=== PATIENT | male | born 1965 | race African-American/Black ===

== ENCOUNTER 2018-05-17 08:24 | Inpatient (IN) | payer OTHER ==
[2018-05-17 09:10] VITALS: BMI 26.4
--- NOTE | 2018-05-17 09:17 | HP ---
CIWA Score Nausea/Vomitin Muscle Tremors: 2 Anxiety: 2 Agitation: 2 Paroxysmal Sweats: 1-Minimal Palms Moist Orientation: 0-Oriented Tacttile Disturbances: 1-Very Mild Itch/Numbness Auditory Disturbances: 1-Very Mild Visual Disturbances: 0-None Headache: 2-Mild CIWA-Ar Total Score: 13 - Admission Criteria OASAS Guidelines: Admission for Medically Managed Detox: Requires at least one of the followin. CIWA greater than 12 2. Seizures within the past 24 hours 3. Delirium tremens within the past 24 hours 4. Hallucinations within the past 24 hours 5. Acute intervention needed for co occurring medical disorder 6. Acute intervention needed for co occurring psychiatric disorder 7. Severe withdrawal that cannot be handled at a lower level of care (continued vomiting, continued diarrhea, abnormal vital signs) requiring intravenous medication and/or fluids 8. Patient presents the following: CIWA greater than 12 Admission Criteria Met: Admission criteria met Admission ROS [facility] - HPI Chief Complaint: i need help to stop drinking alcohol Allergies/Adverse Reactions: Allergies Allergy/AdvReac Type Severity Reaction Status Date / Time No Known Allergies Allergy Verified 05/17/18 09:37 History of Present Illness: this 52 years old male with alcohol dependence,seeking detox,withdrawal symptom, never been in detox before, history of hypertension no medication hepatitis c follow up with [email or web address] nicotine dependence weight loss Exam Limitations: No Limitations - Ebola screening Have you traveled outside of the country in the last 21 days: No Have you had contact with anyone from an Ebola affected area: No Have you been sick,other than usual withdrawal symptoms: No Do you have a fever: No - Review of Systems Constitutional: Malaise, Night Sweats, Changes in sleep, Weakness, Unintentional Wgt. Loss EENT: reports: Nose Congestion Respiratory: reports: No Symptoms reported Cardiac: reports: Palpitations GI: reports: Nausea, Poor Appetite, Abdominal cramping : reports: No Symptoms Reported Musculoskeletal: reports: Back Pain, Joint Pain, Muscle Pain Integumentary: reports: Dryness Neuro: reports: Headache, Tremors Endocrine: reports: No Symptoms Reported Hematology: reports: No Symptoms Reported Psychiatric: reports: No Sypmtoms Reported, Judgement Intact, Mood/Affect Appropiate, Orientated x3 Patient History - Patient Medical History Hx Anemia: No Hx Asthma: No Hx Chronic Obstructive Pulmonary Disease (COPD): No Hx Cancer: No Hx Cardiac Disorders: No Hx Congestive Heart Failure: No Hx Hypertension: Yes (no medication) Hx Hypercholesterolemia: No Hx Pacemaker: No HX Cerebrovascular Accident: No Hx Seizures: No Hx Dementia: No Hx Diabetes: No Hx Gastrointestinal Disorders: Yes (pancreatitis ) Hx Liver Disease: Yes (hepatitis c) Hx Genitourinary Disorders: No Hx Sexually Transmitted Disorders: No Hx Renal Disease (ESRD): No Hx Thyroid Disease: No Hx Human Immunodeficiency Virus (HIV): No (last 03/20 negative) Hx Hepatitis C: Yes (follow up with pmd no treatment) Hx Depression: No Hx Suicide Attempt: No Hx Bipolar Disorder: No Hx Schizophrenia: No Other Medical History: no suicidal,no homicidal - Patient Surgical History Past Surgical History: No - PPD History Previous Implant?: Yes Documented Results: Negative w/o proof Implanted On Prior [facility] Admission?: No PPD to be Administered?: Yes - Smoking Cessation Smoking history: Current every day smoker Have you smoked in the past 12 months: Yes Aproximately how many cigarettes per day: 10 Cigars Per Day: 0 Hx Chewing Tobacco Use: Yes Initiated information on smoking cessation: Yes 'Breaking Loose' booklet given: 05/17/18 - Substance & Tx. History Hx Alcohol Use: Yes Hx Substance Use: No Substance Use Type: Alcohol Hx Substance Use Treatment: No - Substances Abused Alcohol Route: Oral Frequency: Daily Amount used: 1/5th vodka/2 0f 24 ozs of beer Age of first use: 13 Date of Last Use: 05/17/18 Heroin Route: Injection Frequency: 1-2 times per week Amount used: 5 bags Age of first use: 21 Date of Last Use: 05/09/18 Family Disease History - Family Disease History Family History: Denies Admission Physical Exam [facility] - Vital Signs Vital Signs: Vital Signs - 24 hr 05/17/18 09:02 Temperature 97.2 F L Pulse Rate 94 H Respiratory 20 Rate Blood Pressure 135/84 - Physical General Appearance: Yes: Moderate Distress, Tremorous, Irritable, Sweating, Anxious HEENTM: Yes: Normal ENT Inspection, JOLYNN, Pharynx Normal Respiratory: Yes: Lungs Clear, Normal Breath Sounds, No Respiratory Distress Neck: Yes: Within Normal Limits, Supple, Trachea in good position Breast: Yes: Within Normal Limits Cardiology: Yes: Within Normal Limits, Regular Rhythm, Regular Rate, S1, S2 Abdominal: Yes: Within Normal Limits, Normal Bowel Sounds, Non Tender, Flat, Soft Genitourinary: Yes: Within Normal Limits Back: Yes: Muscle Spasm Musculoskeletal: Yes: Back pain, Muscle Pain Extremities: Yes: Tremors Neurological: Yes: process stripper II-XII NML intact, Fully Oriented, Alert, Motor Strength 5/5 Integumentary: Yes: Dry Lymphatic: Yes: Within Normal Limits - Diagnostic (1) Alcohol dependence with uncomplicated withdrawal Current Visit: Yes Status: Acute (2) Hypertension Current Visit: Yes Status: Acute (3) Nicotine dependence Current Visit: Yes Status: Acute Cleared for Admission [facility] - Detox or Rehab [facility] Level of Care: Medically Managed Detox Regimen/Protocol: Librium [facility] Breath Alcohol Content Breath Alcohol Content: 0.042 Urine Drug Screen - Results Drug Screen Negative: No Urine Drug Screen Results: BUP-Suboxone
[2018-05-17] MEDS ORDERED: MAGNESIUM CITRATE 300 ML BOTTLE PO PRN (09:29)
[2018-05-17] MEDS ORDERED: ACETAMINOPHEN 325 MG TABLET (FP) PO PRN (09:29)
[2018-05-17] MEDS ORDERED: P-EPHED 60MG/TRIPROLIDI 2.5MG TABLET PO PRN (09:29)
[2018-05-17] MEDS ORDERED: MAGNESIUM HYDROX 2400MG/30ML ORAL SUSPENSION 30 ML CUP PO PRN (09:29)
[2018-05-17] MEDS ORDERED: LOPERAMIDE HCL 2 MG CAPSULE PO PRN (09:29)
[2018-05-17] MEDS ORDERED: MENTHOL/PHENOL 1 EACH UD MM PRN (09:29)
[2018-05-17] MEDS ORDERED: chlordiazePOXIDE HCL 25 MG CAPSULE PO PRN (09:29)
[2018-05-17] MEDS ORDERED: MAG HYDROX/AL HYDROX/SIMETH 30 ML UNIT-DOSE CUP PO PRN (09:29)
[2018-05-17] MEDS ORDERED: guaiFENesin/D-METHORPHAN HB 10 ML UNIT-DOSE CUPS PO PRN (09:29)
[2018-05-17] MEDS: PRENATAL VITAMINS W/ FOLIC ACID TABLET (FP) PO SCH (11:33)
[2018-05-17] MEDS: chlordiazePOXIDE HCL 25 MG CAPSULE PO SCH ×3 (11:34→22:24)
[2018-05-17] MEDS: hydrOXYzine PAMOATE 50 MG CAPSULE (FP) PO PRN ×2 (11:38→18:06)
[2018-05-17] MEDS: NICOTINE 21 MG/24 HOURS TOPICAL PATCH TD SCH (12:26)
--- NOTE | 2018-05-17 14:14 | EKG ---
Test Reason : Blood Pressure : / mmHG Vent. Rate : 078 BPM Atrial Rate : 078 BPM P-R Int : 180 ms QRS Dur : 096 ms QT Int : 414 ms P-R-T Axes : 056 -09 038 degrees QTc Int : 471 ms NORMAL SINUS RHYTHM INCOMPLETE RIGHT BUNDLE BRANCH BLOCK BORDERLINE ECG NO PREVIOUS ECGS AVAILABLE Confirmed by GEORGE VALLES MD ([id number]) on 05/17/2018 2:14:08 PM Referred By: Confirmed By:GEORGE VALLES MD
[2018-05-17] MEDS: IBUPROFEN 400 MG TABLET (FP) PO PRN (20:44)
[2018-05-17 21:34] LABS: URINE APPEARANCE CLEAR; URINE BILIRUBIN NEGATIVE (<2.0 mg/dL); URINE COLOR DKYELLOW; URINE GLUCOSE (UA) NEGATIVE (NEGATIVE); URINE KETONE NEGATIVE (NEGATIVE); URINE LEUK ESTERASE NEGATIVE (NEGATIVE); URINE NITRITE NEGATIVE (NEGATIVE); URINE PROTEIN NEGATIVE (NEGATIVE)
[2018-05-17] MEDS: THIAMINE HCL 100 MG TABLET (FP) PO SCH (22:24)
[2018-05-18] MEDS: chlordiazePOXIDE HCL 25 MG CAPSULE PO SCH ×4 (05:29→22:09)
[2018-05-18 10:02] LABS: HEMATOCRIT 45.9 % (35.4-49); HEMOGLOBIN 15.1 GM/dL (11.7-16.9); MCH 33.1 pg (25.7-33.7); MCHC 32.9 g/dl (32.0-35.9); MEAN CELL VOLUME 100.8 fl (80-96); MEAN PLT VOLUME 9.3 fl (7.5-11.1); PLATELET COUNT 212 K/MM3 (134-434); RBC 4.55 M/mm3 (4.00-5.60); RDW 12.4 % (11.9-15.9); WHITE BLOOD COUNT 6.5 K/mm3 (4.0-10.0)
[2018-05-18] MEDS: NICOTINE 21 MG/24 HOURS TOPICAL PATCH TD SCH (10:34)
[2018-05-18] MEDS: PRENATAL VITAMINS W/ FOLIC ACID TABLET (FP) PO SCH (10:34)
[2018-05-18 10:51] LABS: ALBUMIN 3.8 g/dl (3.4-5.0); ALK PHOS 105 U/L (45-117); ANION GAP 7 MMOL/L (8-16); BILIRUBIN,TOTAL 0.9 mg/dL (0.2-1); BLOOD UREA NITROGEN 15 mg/dL (7-18); CALCIUM 9.1 mg/dL (8.5-10.1); CHLORIDE 97 mmol/L (98-107); CO2 30 mmol/L (21-32); CREATININE 0.8 mg/dL (0.55-1.3); GLUCOSE,RANDOM 108 mg/dL (74-106); POTASSIUM 4.2 mmol/L (3.5-5.1); SGOT/AST 131 U/L (15-37); SGPT/ALT 119 U/L (13-61); SODIUM 134 mmol/L (136-145); TOT PROT 9.4 g/dl (6.4-8.2)
[2018-05-18] MEDS: NICOTINE POLACRILEX 2 MG GUM BUC PRN ×2 (11:19→16:39)
--- NOTE | 2018-05-18 11:59 | PN ---
[facility] CIWA - CIWA Score Nausea/Vomitin-No Nausea/No Vomiting Muscle Tremors: 2 Anxiety: 2 Agitation: 2 Paroxysmal Sweats: No Perspiration Orientation: 0-Oriented Tacttile Disturbances: 2-Mild Itch/Numbness/Burn Auditory Disturbances: 0-None Visual Disturbances: 0-None Headache: 0-None Present CIWA-Ar Total Score: 8 BHS Progress Note (SOAP) Subjective: PATIENT C/O NUMBNESS AND TINGLING TO FEET, ANXIETY, RESTLESSNESS, AND SHAKES Objective: 05/18/18 11:56 Vital Signs Temperature 96.8 F L 05/18/18 09:49 Pulse Rate 68 05/18/18 09:49 Respiratory Rate 18 05/18/18 09:49 Blood Pressure 100/64 05/18/18 09:49 O2 Sat by Pulse Oximetry (%) Laboratory Tests 05/17/18 05/17/18 05/18/18 11:37 14:21 06:30 WBC 6.5 RBC 4.55 Hgb 15.1 Hct 45.9 MCV 100.8 H MCH 33.1 MCHC 32.9 RDW 12.4 Plt Count 212 MPV 9.3 Sodium Potassium Chloride Carbon Dioxide Anion Gap BUN Creatinine Creat Clearance w eGFR Random Glucose Calcium Total Bilirubin AST ALT Alkaline Phosphatase Total Protein Albumin Urine Color Dkyellow Urine Appearance Clear Urine pH 5.0 Ur Specific [place] 1.023 Urine Protein Negative Urine Glucose (UA) Negative Urine Ketones Negative Urine Blood Negative Urine Nitrite Negative Urine Bilirubin Negative Urine Urobilinogen 2.0 Ur Leukocyte Esterase Negative HIV 1&2 Antibody Screen Negative HIV P24 Antigen Negative 05/18/18 06:30 WBC RBC Hgb Hct MCV MCH MCHC RDW Plt Count MPV Sodium 134 L Potassium 4.2 Chloride 97 L Carbon Dioxide 30 Anion Gap 7 L BUN 15 Creatinine 0.8 Creat Clearance w eGFR > 60 Random Glucose 108 H Calcium 9.1 Total Bilirubin 0.9 AST 131 H ALT 119 H Alkaline Phosphatase 105 Total Protein 9.4 H Albumin 3.8 Urine Color Urine Appearance Urine pH Ur Specific [place] Urine Protein Urine Glucose (UA) Urine Ketones Urine Blood Urine Nitrite Urine Bilirubin Urine Urobilinogen Ur Leukocyte Esterase HIV 1&2 Antibody Screen HIV P24 Antigen PE: SKIN WARM AND DRY ALERT AND ORIENTED X 3 EXT FULL ROM, NO EDEMA AMB AD LATONIA ANXIOUS 05/18/18 11:58 Assessment: 05/18/18 11:58 WITHDRAWAL SX Plan: CONTINUE DETOX REGIMEN ENCOURAGE ORAL FLUIDS START GABAPENTIN 100MG TID CONTINUE TO MONITOR CLINICALLY
[2018-05-18] MEDS ORDERED: FLU VACCINE QUAD 60 MCG/0.5 ML (MDV 18-19) IM ONE (12:00)
[2018-05-18] MEDS: GABAPENTIN 100 MG CAPSULE (FP) PO SCH ×2 (14:31→22:09)
[2018-05-18] MEDS: THIAMINE HCL 100 MG TABLET (FP) PO SCH (22:09)
[2018-05-18] MEDS: MELATONIN 5 MG TABLETS PO PRN (22:10)
[2018-05-19] MEDS: GABAPENTIN 100 MG CAPSULE (FP) PO SCH ×3 (05:24→22:38)
[2018-05-19] MEDS: chlordiazePOXIDE HCL 25 MG CAPSULE PO SCH (05:24)
[2018-05-19] MEDS: NICOTINE 21 MG/24 HOURS TOPICAL PATCH TD SCH (10:38)
[2018-05-19] MEDS: PRENATAL VITAMINS W/ FOLIC ACID TABLET (FP) PO SCH (10:38)
[2018-05-19] MEDS: chlordiazePOXIDE 5 MG CAPSULE PO SCH ×3 (10:38→22:38)
[2018-05-19] MEDS: NICOTINE POLACRILEX 2 MG GUM BUC PRN ×3 (10:40→17:46)
--- NOTE | 2018-05-19 11:27 | PN ---
[facility] CIWA - CIWA Score Nausea/Vomitin-No Nausea/No Vomiting Muscle Tremors: 3 Anxiety: 2 Agitation: 2 Paroxysmal Sweats: 2 Orientation: 0-Oriented Tacttile Disturbances: 0-None Auditory Disturbances: 0-None Visual Disturbances: 0-None Headache: 0-None Present CIWA-Ar Total Score: 9 S Progress Note (SOAP) Subjective: PATIENT C/O CHILLS, SWEATING, INSOMNIA AND SHAKES Objective: 05/19/18 11:25 Vital Signs Temperature 97.2 F L 05/19/18 09:59 Pulse Rate 95 H 05/19/18 09:59 Respiratory Rate 18 05/19/18 09:59 Blood Pressure 127/70 05/19/18 09:59 O2 Sat by Pulse Oximetry (%) Laboratory Tests 05/17/18 05/17/18 05/18/18 11:37 14:21 06:30 WBC 6.5 RBC 4.55 Hgb 15.1 Hct 45.9 MCV 100.8 H MCH 33.1 MCHC 32.9 RDW 12.4 Plt Count 212 MPV 9.3 Sodium Potassium Chloride Carbon Dioxide Anion Gap BUN Creatinine Creat Clearance w eGFR Random Glucose Calcium Total Bilirubin AST ALT Alkaline Phosphatase Total Protein Albumin Urine Color Dkyellow Urine Appearance Clear Urine pH 5.0 Ur Specific [place] 1.023 Urine Protein Negative Urine Glucose (UA) Negative Urine Ketones Negative Urine Blood Negative Urine Nitrite Negative Urine Bilirubin Negative Urine Urobilinogen 2.0 Ur Leukocyte Esterase Negative RPR Titer HIV 1&2 Antibody Screen Negative HIV P24 Antigen Negative 05/18/18 05/18/18 06:30 06:30 WBC RBC Hgb Hct MCV MCH MCHC RDW Plt Count MPV Sodium 134 L Potassium 4.2 Chloride 97 L Carbon Dioxide 30 Anion Gap 7 L BUN 15 Creatinine 0.8 Creat Clearance w eGFR > 60 Random Glucose 108 H Calcium 9.1 Total Bilirubin 0.9 AST 131 H ALT 119 H Alkaline Phosphatase 105 Total Protein 9.4 H Albumin 3.8 Urine Color Urine Appearance Urine pH Ur Specific [place] Urine Protein Urine Glucose (UA) Urine Ketones Urine Blood Urine Nitrite Urine Bilirubin Urine Urobilinogen Ur Leukocyte Esterase RPR Titer Nonreactive HIV 1&2 Antibody Screen HIV P24 Antigen PE: SKIN WARM AND MOIST ALERT AND ORIENTED X 3 EXT FULL ROM, +TREMORS AMB AD LATONIA ANXIOUS Assessment: 05/19/18 11:27 WITHDRAWAL SX Plan: CONTINUE DETOX CONTINUE ORAL FLUIDS CONTINUE TO MONITOR CLINICALLY
[2018-05-19] MEDS: IBUPROFEN 400 MG TABLET (FP) PO PRN ×2 (13:39→22:40)
--- NOTE | 2018-05-19 19:04 | PN ---
BHS Progress Note Note: Pt requesting "muscle relaxant" to help him with "muscle cramping". Pt is on Gabapentin 100mg TID. Pt encouraged to increase water hydration.
[2018-05-19] MEDS: THIAMINE HCL 100 MG TABLET (FP) PO SCH (22:38)
[2018-05-19] MEDS: MELATONIN 5 MG TABLETS PO PRN (22:39)
[2018-05-19] MEDS: hydrOXYzine PAMOATE 50 MG CAPSULE (FP) PO PRN (23:48)
[2018-05-20] MEDS: GABAPENTIN 100 MG CAPSULE (FP) PO SCH ×3 (05:22→22:36)
[2018-05-20] MEDS: chlordiazePOXIDE 5 MG CAPSULE PO SCH (05:22)
[2018-05-20] MEDS: IBUPROFEN 400 MG TABLET (FP) PO PRN (05:24)
[2018-05-20] MEDS: NICOTINE POLACRILEX 2 MG GUM BUC PRN ×2 (09:20→22:37)
[2018-05-20] MEDS: NICOTINE 21 MG/24 HOURS TOPICAL PATCH TD SCH (10:31)
[2018-05-20] MEDS: PRENATAL VITAMINS W/ FOLIC ACID TABLET (FP) PO SCH (10:31)
[2018-05-20] MEDS: chlordiazePOXIDE HCL 10 MG CAPSULE PO SCH ×3 (10:31→22:36)
--- NOTE | 2018-05-20 14:54 | PN ---
BHS Progress Note (SOAP) Subjective: Interrupted sleep, sweating Objective: 05/20/18 14:53 Last Vital Signs Temp Pulse Resp BP Pulse Ox 98.6 F 86 16 122/76 05/20/18 13:48 05/20/18 13:48 05/20/18 13:48 05/20/18 13:48 Laboratory Tests 05/17/18 05/17/18 05/18/18 11:37 14:21 06:30 WBC 6.5 RBC 4.55 Hgb 15.1 Hct 45.9 MCV 100.8 H MCH 33.1 MCHC 32.9 RDW 12.4 Plt Count 212 MPV 9.3 Sodium Potassium Chloride Carbon Dioxide Anion Gap BUN Creatinine Creat Clearance w eGFR Random Glucose Calcium Total Bilirubin AST ALT Alkaline Phosphatase Total Protein Albumin Urine Color Dkyellow Urine Appearance Clear Urine pH 5.0 Ur Specific [place] 1.023 Urine Protein Negative Urine Glucose (UA) Negative Urine Ketones Negative Urine Blood Negative Urine Nitrite Negative Urine Bilirubin Negative Urine Urobilinogen 2.0 Ur Leukocyte Esterase Negative RPR Titer HIV 1&2 Antibody Screen Negative HIV P24 Antigen Negative 05/18/18 05/18/18 06:30 06:30 WBC RBC Hgb Hct MCV MCH MCHC RDW Plt Count MPV Sodium 134 L Potassium 4.2 Chloride 97 L Carbon Dioxide 30 Anion Gap 7 L BUN 15 Creatinine 0.8 Creat Clearance w eGFR > 60 Random Glucose 108 H Calcium 9.1 Total Bilirubin 0.9 AST 131 H ALT 119 H Alkaline Phosphatase 105 Total Protein 9.4 H Albumin 3.8 Urine Color Urine Appearance Urine pH Ur Specific [place] Urine Protein Urine Glucose (UA) Urine Ketones Urine Blood Urine Nitrite Urine Bilirubin Urine Urobilinogen Ur Leukocyte Esterase RPR Titer Nonreactive HIV 1&2 Antibody Screen HIV P24 Antigen Labs reviewed: elevated AST/ALT most likely r/t alcohol dependence Assessment: 05/20/18 14:54 Withdrawal symptoms Plan: Continue detox Encouraged PO water intake
[2018-05-20] MEDS: MELATONIN 5 MG TABLETS PO PRN (22:36)
[2018-05-20] MEDS: THIAMINE HCL 100 MG TABLET (FP) PO SCH (22:36)
[2018-05-21] MEDS: IBUPROFEN 400 MG TABLET (FP) PO PRN (05:24)
[2018-05-21] MEDS: chlordiazePOXIDE HCL 10 MG CAPSULE PO SCH (05:24)
[2018-05-21] MEDS: GABAPENTIN 100 MG CAPSULE (FP) PO SCH (05:24)
[2018-05-21] MEDS: NICOTINE POLACRILEX 2 MG GUM BUC PRN (05:27)
[2018-05-21 05:57] VITALS: BP 120/69; PULSE 73; TEMP 96.5
[2018-05-21] MEDS: NICOTINE 21 MG/24 HOURS TOPICAL PATCH TD SCH (10:04)
[2018-05-21] MEDS: PRENATAL VITAMINS W/ FOLIC ACID TABLET (FP) PO SCH (10:04)
--- NOTE | 2018-05-21 10:55 | DS ---
[facility] Detox Discharge Summary Admission Date: 05/17/18 Discharge Date: 05/21/18 - History Present History: Alcohol Dependence Additional Comments: 52 years old male admitted on 05/03/18 for alcohol withdrawal sx completed alcohol detox regimen - Physical Exam Results Vital Signs: Vital Signs Temperature 96.5 F L 05/21/18 05:57 Pulse Rate 73 05/21/18 05:57 Respiratory Rate 18 05/21/18 05:57 Blood Pressure 120/69 05/21/18 05:57 O2 Sat by Pulse Oximetry (%) Pertinent Admission Physical Exam Findings: alcohol withdrawal sx Vital Signs Temperature 96.5 F L 05/21/18 05:57 Pulse Rate 73 05/21/18 05:57 Respiratory Rate 18 05/21/18 05:57 Blood Pressure 120/69 05/21/18 05:57 O2 Sat by Pulse Oximetry (%) Laboratory Last Values WBC 6.5 K/mm3 (4.0-10.0) 05/18/18 06:30 RBC 4.55 M/mm3 (4.00-5.60) 05/18/18 06:30 Hgb 15.1 GM/dL (11.7-16.9) 05/18/18 06:30 Hct 45.9 % (35.4-49) 05/18/18 06:30 MCV 100.8 fl (80-96) H 05/18/18 06:30 MCH 33.1 pg (25.7-33.7) 05/18/18 06:30 MCHC 32.9 g/dl (32.0-35.9) 05/18/18 06:30 RDW 12.4 % (11.9-15.9) 05/18/18 06:30 Plt Count 212 K/MM3 (134-434) 05/18/18 06:30 MPV 9.3 fl (7.5-11.1) 05/18/18 06:30 Sodium 134 mmol/L (136-145) L 05/18/18 06:30 Potassium 4.2 mmol/L (3.5-5.1) 05/18/18 06:30 Chloride 97 mmol/L (98-107) L 05/18/18 06:30 Carbon Dioxide 30 mmol/L (21-32) 05/18/18 06:30 Anion Gap 7 MMOL/L (8-16) L 05/18/18 06:30 BUN 15 mg/dL (7-18) 05/18/18 06:30 Creatinine 0.8 mg/dL (0.55-1.3) 05/18/18 06:30 Creat Clearance w eGFR > 60 (>60) 05/18/18 06:30 Random Glucose 108 mg/dL (74-106) H 05/18/18 06:30 Calcium 9.1 mg/dL (8.5-10.1) 05/18/18 06:30 Total Bilirubin 0.9 mg/dL (0.2-1) 05/18/18 06:30 AST 131 U/L (15-37) H 05/18/18 06:30 ALT 119 U/L (13-61) H 05/18/18 06:30 Alkaline Phosphatase 105 U/L (45-117) 05/18/18 06:30 Total Protein 9.4 g/dl (6.4-8.2) H 05/18/18 06:30 Albumin 3.8 g/dl (3.4-5.0) 05/18/18 06:30 Urine Color Dkyellow 05/17/18 14:21 Urine Appearance Clear 05/17/18 14:21 Urine pH 5.0 (5.0-8.0) 05/17/18 14:21 Ur Specific [place] 1.023 (1.010-1.035) 05/17/18 14:21 Urine Protein Negative (NEGATIVE) 05/17/18 14:21 Urine Glucose (UA) Negative (NEGATIVE) 05/17/18 14:21 Urine Ketones Negative (NEGATIVE) 05/17/18 14:21 Urine Blood Negative (NEGATIVE) 05/17/18 14:21 Urine Nitrite Negative (NEGATIVE) 05/17/18 14:21 Urine Bilirubin Negative (<2.0 mg/dL) 05/17/18 14:21 Urine Urobilinogen 2.0 mg/dL (0.2-1.0) 05/17/18 14:21 Ur Leukocyte Esterase Negative (NEGATIVE) 05/17/18 14:21 RPR Titer Nonreactive (NONREACTIVE) 05/18/18 06:30 HIV 1&2 Antibody Screen Negative 05/17/18 11:37 HIV P24 Antigen Negative 05/17/18 11:37 lab noted - Treatment Hospital Course: Detox Protocol Followed, Detoxed Safely, Responded well, Discharged Condition Good, Rehab Referral Accepted - Medication Discharge Medications: Ambulatory Orders NK [No Known Home Medication] 05/17/18 - Diagnosis (1) Alcohol dependence with uncomplicated withdrawal Current Visit: Yes Status: Acute (2) Hypertension Current Visit: Yes Status: Chronic Qualifiers: Hypertension type: essential hypertension Qualified Code(s): I10 - Essential (primary) hypertension (3) Nicotine dependence Current Visit: Yes Status: Acute Qualifiers: Nicotine product type: cigarettes Substance use status: in withdrawal Qualified Code(s): F17.213 - Nicotine dependence, cigarettes, with withdrawal - AMA Did Patient Leave Against Medical Advice: No
== END 2018-05-21 11:07 | disposition home or self-care (01) | DRG 775 ==
LOC: YASAS 08:24 → Y3N 10:22
PROC: HZ2ZZZZ Detoxification Services for Substance Abuse Treatment (ICD-10-PCS; principal; 2018-05-17)
DX: F10.230 Alcohol dependence with withdrawal, uncomplicated (principal); F17.213 Nicotine dependence, cigarettes, with withdrawal; I10 Essential (primary) hypertension; R94.5 Abnormal results of liver function studies; B18.2 Chronic viral hepatitis C; R63.4 Abnormal weight loss; Z68.26 Body mass index [BMI] 26.0-26.9, adult; Z87.19 Personal history of other diseases of the digestive system
CPT/HCPCS: 36415; 80053; 81003; 85027; 86593; 87389; 93005; 93010

== ENCOUNTER 2018-05-29 13:49 | Inpatient (IN) | payer OTHER ==
--- NOTE | 2018-05-29 15:36 | HP ---
CIWA Score - Admission Criteria OASAS Guidelines: Admission for Medically Managed Detox: Requires at least one of the followin. CIWA greater than 12 2. Seizures within the past 24 hours 3. Delirium tremens within the past 24 hours 4. Hallucinations within the past 24 hours 5. Acute intervention needed for co occurring medical disorder 6. Acute intervention needed for co occurring psychiatric disorder 7. Severe withdrawal that cannot be handled at a lower level of care (continued vomiting, continued diarrhea, abnormal vital signs) requiring intravenous medication and/or fluids 8. Admission ROS [facility] Chief Complaint: REHAB SERVICES FOR ETOH DEPENDENCE. Allergies/Adverse Reactions: Allergies Allergy/AdvReac Type Severity Reaction Status Date / Time No Known Allergies Allergy Verified 05/17/18 09:37 History of Present Illness: PATIENT PRESENTS FOR REHAB FOR ETOH DEPENDENCE. PATIENT COMPLETED DETOX HERE AT [facility] 05/17/18-05/21/18 AND WENT TO [facility] REHAB AFTER DETOX. PATIENT LEFT [facility] YESTERDAY HE FELT UNSAFE WITH OTHER PEERS. PATIENT STARTED DRINKING ETOH AT AGE 11. DRINKS 2 FIFTHS OF LIQUOR AND 4-5 24 OUNCE BEERS DAILY. LAST DRINK TODAY. DENIES HX OF SEIZURES, FALLS AND BLACKOUTS. PATIENT PMH INCLUDES HTN, TOBACCO USE, INSOMNIA AND ANXIETY. DENIES SI/HI AND SUICIDE ATTEMPTS. Exam Limitations: Intoxication - Ebola screening Have you traveled outside of the country in the last 21 days: No Have you had contact with anyone from an Ebola affected area: No Do you have a fever: No - Review of Systems Constitutional: Night Sweats, Changes in sleep EENT: reports: No Symptoms Reported Respiratory: reports: No Symptoms reported Cardiac: reports: No Symptoms Reported GI: reports: Diarrhea, Nausea, Poor Fluid Intake, Abdominal cramping : reports: No Symptoms Reported Musculoskeletal: reports: No Symptoms Reported Integumentary: reports: No Symptoms Reported Neuro: reports: Numbness, Tingling Endocrine: reports: No Symptoms Reported Hematology: reports: No Symptoms Reported Psychiatric: reports: Orientated x3, Anxious, Depressed Patient History - Patient Medical History Hx Anemia: No Hx Asthma: No Hx Chronic Obstructive Pulmonary Disease (COPD): No Hx Cancer: No Hx Cardiac Disorders: No Hx Congestive Heart Failure: No Hx Hypertension: Yes (no medication) Hx Hypercholesterolemia: No Hx Pacemaker: No HX Cerebrovascular Accident: No Hx Seizures: No Hx Dementia: No Hx Diabetes: No Hx Gastrointestinal Disorders: Yes (pancreatitis ) Hx Liver Disease: Yes (hepatitis c) Hx Genitourinary Disorders: No Hx Sexually Transmitted Disorders: No Hx Renal Disease (ESRD): No Hx Thyroid Disease: No Hx Human Immunodeficiency Virus (HIV): No (last 03/20 negative) Hx Hepatitis C: Yes (follow up with pmd no treatment) Hx Depression: No Hx Suicide Attempt: No Hx Bipolar Disorder: No Hx Schizophrenia: No - Patient Surgical History Past Surgical History: No Hx Neurologic Surgery: No Hx Cataract Extraction: No Hx Cardiac Surgery: No Hx Lung Surgery: No Hx Breast Surgery: No Hx Breast Biopsy: No Hx Abdominal Surgery: No Hx Appendectomy: No Hx Cholecystectomy: No Hx Genitourinary Surgery: No Hx Orthopedic Surgery: No Anesthesia Reaction: No - PPD History Previous Implant?: Yes Documented Results: Negative w/proof Date: 05/19/18 PPD to be Administered?: No - Smoking Cessation Smoking history: Current every day smoker Have you smoked in the past 12 months: Yes Aproximately how many cigarettes per day: 10 Cigars Per Day: 0 Hx Chewing Tobacco Use: Yes Initiated information on smoking cessation: Yes 'Breaking Loose' booklet given: 05/29/18 - Substance & Tx. History Hx Alcohol Use: Yes Hx Substance Use: No Substance Use Type: Alcohol Hx Substance Use Treatment: Yes (DETOX 05/16-05/21/2018) - Substances Abused Alcohol Route: Oral Frequency: Daily Amount used: 2 FIFTHS DAILY, 4-6 24 OUNCES OF BEER Age of first use: 11 Date of Last Use: 05/29/18 Family Disease History - Family Disease History Family Disease History: Diabetes: Mother Admission Physical Exam [facility] Physical General Appearance: Yes: No Apparent Distress, Appropriately Dressed, Intoxicated, Anxious HEENTM: Yes: EOMI, Hearing grossly Normal, Normal ENT Inspection, Normocephalic , Normal Voice, JOLYNN, Pharynx Normal Respiratory: Yes: Chest Non-Tender, Lungs Clear, Normal Breath Sounds, No Respiratory Distress, No Accessory Muscle Use Neck: Yes: No masses,lesions,Nodules, Supple, Trachea in good position Breast: Yes: Breast Exam Deferred Cardiology: Yes: Regular Rhythm, Regular Rate, S1, S2 Abdominal: Yes: Normal Bowel Sounds, Non Tender, Soft Genitourinary: Yes: Within Normal Limits Back: Yes: Normal Inspection Musculoskeletal: Yes: full range of Motion, Gait Steady Extremities: Yes: Normal Inspection, Normal Range of Motion, Non-Tender Neurological: Yes: data network architect II-XII NML intact, Fully Oriented, Alert, Motor Strength 5/5, Normal Response, Depressed Affect Integumentary: Yes: Normal Color, Dry, Warm Lymphatic: Yes: Within Normal Limits - Diagnostic (1) Alcohol dependence Current Visit: Yes Status: Chronic Qualifiers: Substance use status: uncomplicated Qualified Code(s): F10.20 - Alcohol dependence, uncomplicated (2) Anxiety Current Visit: Yes Status: Chronic (3) Insomnia Current Visit: Yes Status: Chronic Qualifiers: Insomnia type: unspecified Qualified Code(s): G47.00 - Insomnia, unspecified (4) Nicotine dependence Current Visit: Yes Status: Chronic Qualifiers: Nicotine product type: cigarettes Substance use status: in withdrawal Qualified Code(s): F17.213 - Nicotine dependence, cigarettes, with withdrawal (5) Hypertension Current Visit: Yes Status: Chronic Qualifiers: Hypertension type: essential hypertension Qualified Code(s): I10 - Essential (primary) hypertension Cleared for Admission [facility] - Detox or Rehab Claeared for Rehab Admission: Yes S Breath Alcohol Content Breath Alcohol Content: 0.042 Vital Signs - Vital Signs Vital Signs Refused: No Temperature: 98.0 F Temperature Source: Oral Pulse Rate: 85 Respiratory Rate: 20 Blood Pressure: 144/85 BP Location: Left Arm Blood Pressure Position: Sitting - Height Height: 5 ft 9 in - Weight Weight: 186 lb Weight Measurement Method: Standing Scale Body Mass Index (BMI): 27.4 - Bowel Function Bowel Movement: Yes (LBM TODAY) Urine Drug Screen - Results Drug Screen Negative: No Urine Drug Screen Results: BZO-Benzodiazepines Inpatient Rehab Admission - Initial Determination Are CD services needed?: Yes Free of communicable disease: Yes Not in need of hospitalization: Yes - Rehab Admission Criteria Previous failed treatment: Yes Poor recovery environment: Yes Comorbidities: Yes Lacks judgement: No Patient is meeting Inpatient Rehab admission criteria:: Yes
[2018-05-29 15:47] VITALS: BMI 27.4
[2018-05-29] MEDS ORDERED: MAGNESIUM CITRATE 300 ML BOTTLE PO PRN (15:55)
[2018-05-29] MEDS ORDERED: LOPERAMIDE HCL 2 MG CAPSULE PO PRN (15:55)
[2018-05-29] MEDS ORDERED: P-EPHED 60MG/TRIPROLIDI 2.5MG TABLET PO PRN (15:55)
[2018-05-29] MEDS ORDERED: MAGNESIUM HYDROX 2400MG/30ML ORAL SUSPENSION 30 ML CUP PO PRN (15:55)
[2018-05-29] MEDS ORDERED: guaiFENesin/D-METHORPHAN HB 10 ML UNIT-DOSE CUPS PO PRN (15:55)
[2018-05-29] MEDS ORDERED: MENTHOL/PHENOL 1 EACH UD MM PRN (15:55)
[2018-05-29] MEDS ORDERED: MAG HYDROX/AL HYDROX/SIMETH 30 ML UNIT-DOSE CUP PO PRN (15:55)
[2018-05-29] MEDS ORDERED: IBUPROFEN 400 MG TABLET (FP) PO PRN (15:55)
[2018-05-29] MEDS ORDERED: ACETAMINOPHEN 325 MG TABLET (FP) PO PRN (15:55)
[2018-05-29] MEDS ORDERED: MELATONIN 5 MG TABLETS PO PRN (22:00)
[2018-05-29] MEDS: THIAMINE HCL 100 MG TABLET (FP) PO SCH (22:02)
[2018-05-29] MEDS: MELATONIN 5 MG TABLETS PO PRN (22:02)
[2018-05-29] MEDS: NICOTINE POLACRILEX 4 MG GUM BC PRN (23:09)
[2018-05-30 01:04] LABS: URINE APPEARANCE CLEAR; URINE BILIRUBIN NEGATIVE (<2.0 mg/dL); URINE COLOR STRAW; URINE GLUCOSE (UA) NEGATIVE (NEGATIVE); URINE KETONE NEGATIVE (NEGATIVE); URINE LEUK ESTERASE NEGATIVE (NEGATIVE); URINE NITRITE NEGATIVE (NEGATIVE); URINE PROTEIN NEGATIVE (NEGATIVE); URINE UROBILINOGEN NEGATIVE mg/dL (0.2-1.0)
[2018-05-30] MEDS: PRENATAL VITAMINS W/ FOLIC ACID TABLET (FP) PO SCH (10:16)
[2018-05-30] MEDS: NICOTINE 21 MG/24 HOURS TOPICAL PATCH TD SCH (10:16)
[2018-05-30] MEDS: hydrOXYzine PAMOATE 50 MG CAPSULE (FP) PO PRN ×2 (10:17→21:43)
--- NOTE | 2018-05-30 12:05 | HP ---
Psychiatrist Admission - Data Date of interview: 05/30/18 Admission source: Patient transfered from after successful detox complitions Identifying data: This is 52 years old male, man , father of six, unemployed, domiciled, with no psychiatric hospitalization history, reports long history of Alcohol and Nicotine depemdndence, reports first time duing rehabilitation protocol.. Medical History: Hep C+, Pancreatitis since 4-5 years ago, Psychiatric History: Patient reports history of depression, reports no sucidal , homicidal ideations, reports insomnia, asking for medications aid, for insomnia. Denies usage psychiatric medications in the past. Vital Signs: Vital Signs - 24 hr 05/29/18 05/29/18 05/29/18 15:55 16:56 23:00 Temperature 98.0 F 98.0 F 97.6 F Pulse Rate 85 85 97 H Respiratory 20 20 18 Rate Blood Pressure 144/85 144/85 131/78 05/30/18 05/30/18 05/30/18 00:30 03:30 06:46 Temperature 95.9 F L Pulse Rate 90 Respiratory 18 18 16 Rate Blood Pressure 144/90 Allergies/Adverse Reactions: Allergies Allergy/AdvReac Type Severity Reaction Status Date / Time No Known Allergies Allergy Verified 05/29/18 22:47 Mental Status Exam - Mental Status Exam Alert and Oriented to: Place, Person Cognitive Function: Fair Patient Appearance: Unkempt Mood: Euthymic Affect: Mood Congruent Patient Behavior: Appropriate Speech Pattern: Appropriate Thought Process: Goal Oriented Thought Disorder: Being Controlled Hallucinations: Denies Suicidal Ideation: Denies Homicidal Ideation: Denies Insight/Judgement: Fair Sleep: Difficulty falling asleep Appetite: Fair Muscle strength/Tone: Normal Gait/Station: Normal Additional Comments: Trazodone 50mg po [facility] Psychiatric Findings - Problem List ([place] 1, 2,3) (1) Hep C w/ coma, chronic Current Visit: Yes Status: Acute (2) Alcohol dependence Current Visit: Yes Status: Chronic Qualifiers: Substance use status: uncomplicated Qualified Code(s): F10.20 - Alcohol dependence, uncomplicated (3) Anxiety Current Visit: Yes Status: Chronic (4) Hypertension Current Visit: Yes Status: Chronic Qualifiers: Hypertension type: essential hypertension Qualified Code(s): I10 - Essential (primary) hypertension (5) Nicotine dependence Current Visit: Yes Status: Chronic Qualifiers: Nicotine product type: cigarettes Substance use status: in withdrawal Qualified Code(s): F17.213 - Nicotine dependence, cigarettes, with withdrawal (6) Alcohol dependence with uncomplicated withdrawal Current Visit: No Status: Acute (7) Elevated LFTs Current Visit: No Status: Acute - Initial Treatment Plan Initial Treatment Plan: Trazodone 50mg po qhs
[2018-05-30 14:54] LABS: HEMOGLOBIN 13.9 GM/dL (11.7-16.9); MCH 32.5 pg (25.7-33.7); MCHC 32.4 g/dl (32.0-35.9); MEAN CELL VOLUME 100.3 fl (80-96); MEAN PLT VOLUME 7.9 fl (7.5-11.1); PLATELET COUNT 186 K/MM3 (134-434); RBC 4.28 M/mm3 (4.00-5.60); RDW 12.1 % (11.9-15.9)
[2018-05-30 15:14] LABS: ALBUMIN 3.1 g/dl (3.4-5.0); ALK PHOS 105 U/L (45-117); ANION GAP 10 MMOL/L (8-16); BILIRUBIN,TOTAL 0.3 mg/dL (0.2-1); BLOOD UREA NITROGEN 14 mg/dL (7-18); CALCIUM 8.6 mg/dL (8.5-10.1); CHLORIDE 104 mmol/L (98-107); CO2 27 mmol/L (21-32); CREATININE 0.8 mg/dL (0.55-1.3); GLUCOSE,RANDOM 158 mg/dL (74-106); SGOT/AST 94 U/L (15-37); SGPT/ALT 95 U/L (13-61); SODIUM 141 mmol/L (136-145)
[2018-05-30] MEDS: NICOTINE POLACRILEX 4 MG GUM BC PRN (20:46)
[2018-05-30] MEDS ORDERED: traZODone HCL 100 MG TABLET (FP) PO SCH (22:00)
[2018-05-30] MEDS: THIAMINE HCL 100 MG TABLET (FP) PO SCH (22:19)
[2018-05-31] MEDS: hydrOXYzine PAMOATE 50 MG CAPSULE (FP) PO PRN (01:31)
[2018-05-31] MEDS: PRENATAL VITAMINS W/ FOLIC ACID TABLET (FP) PO SCH (10:59)
[2018-05-31] MEDS: NICOTINE 21 MG/24 HOURS TOPICAL PATCH TD SCH (12:10)
--- NOTE | 2018-05-31 17:47 | PN ---
[facility] Progress Note Note: Psychiatric nurse practitioner note: Will discontinue trazodone 100mg. Patient accepted his first dose of trazodone 100mg last night and reported having nightmares, unable to move when he awoke this morning, and feeling oversedated. Patient is currently prescribed Melatonin 10mg. States he takes melatonin at home with favorable effect. Trazodone 100mg d/c. Nursing staff informed.
[2018-05-31] MEDS: THIAMINE HCL 100 MG TABLET (FP) PO SCH (21:39)
[2018-05-31] MEDS: MELATONIN 5 MG TABLETS PO PRN (21:39)
[2018-06-01] MEDS: NICOTINE 21 MG/24 HOURS TOPICAL PATCH TD SCH (10:39)
[2018-06-01] MEDS: PRENATAL VITAMINS W/ FOLIC ACID TABLET (FP) PO SCH (10:40)
[2018-06-01] MEDS: NICOTINE POLACRILEX 4 MG GUM BC PRN (10:40)
[2018-06-01] MEDS: MELATONIN 5 MG TABLETS PO PRN (21:50)
[2018-06-01] MEDS: THIAMINE HCL 100 MG TABLET (FP) PO SCH (21:50)
[2018-06-02] MEDS: PRENATAL VITAMINS W/ FOLIC ACID TABLET (FP) PO SCH (10:00)
[2018-06-02] MEDS: NICOTINE 21 MG/24 HOURS TOPICAL PATCH TD SCH (10:00)
[2018-06-02] MEDS: THIAMINE HCL 100 MG TABLET (FP) PO SCH (21:38)
[2018-06-02] MEDS: MELATONIN 5 MG TABLETS PO PRN (23:55)
[2018-06-02] MEDS: hydrOXYzine PAMOATE 50 MG CAPSULE (FP) PO PRN (23:55)
[2018-06-03 07:24] VITALS: BP 125/86; PULSE 84; TEMP 97.5
[2018-06-03] MEDS: PRENATAL VITAMINS W/ FOLIC ACID TABLET (FP) PO SCH (10:02)
[2018-06-03] MEDS: NICOTINE POLACRILEX 4 MG GUM BC PRN (10:03)
[2018-06-03] MEDS: NICOTINE 21 MG/24 HOURS TOPICAL PATCH TD SCH (10:03)
[2018-06-03] MEDS: MELATONIN 5 MG TABLETS PO PRN (21:41)
[2018-06-03] MEDS: THIAMINE HCL 100 MG TABLET (FP) PO SCH (21:41)
[2018-06-04] MEDS: PRENATAL VITAMINS W/ FOLIC ACID TABLET (FP) PO SCH (11:02)
[2018-06-04] MEDS: NICOTINE 21 MG/24 HOURS TOPICAL PATCH TD SCH (11:03)
--- NOTE | 2018-06-04 13:22 | PN ---
Psychiatric Progress Note Vital Signs: Vital Signs Period Temp Pulse Resp BP Sys/Zhao Pulse Ox Last 24 Hr 16-16 Date of Session: 06/04/18 Chief Complaint:: Discharge Note HPI: Patient addressing Alcohol Dependence comorbid with Nicotine Dependence ROS: HTN, Hep C, elevated LFT's Current Medications: Active Medications Generic Name Dose Route Start Last Admin Trade Name Freq PRN Reason Stop Dose Admin Acetaminophen 650 mg 05/29/18 15:55 05/31/18 01:31 Tylenol - PO 650 mg Q4H PRN Administration FEVER Al Hydroxide/Mg Hydroxide 30 ml 05/29/18 15:55 Mylanta Oral Suspension - PO Q6H PRN DYSPEPSIA Eucalyptus/Menthol/Phenol/Sorbitol 1 each 05/29/18 15:55 Cepastat Lozenge - MM Q4H PRN SORE THROAT Guaifenesin 10 ml 05/29/18 15:55 Robitussin Dm - PO Q6H PRN COUGH Hydroxyzine Pamoate 50 mg 05/29/18 15:55 06/02/18 23:55 Vistaril - PO 50 mg Q4H PRN Administration AGITATION Ibuprofen 400 mg 05/29/18 15:55 Motrin - PO Q6H PRN Pain level 4-6 Loperamide HCl 4 mg 05/29/18 15:55 Imodium - PO Q6H PRN DIARRHEA Magnesium Citrate 300 ml 05/29/18 15:55 Citroma - PO Q48H PRN CONSTIPATION Magnesium Hydroxide 30 ml 05/29/18 15:55 Milk Of Magnesia - PO DAILY PRN CONSTIPATION Melatonin 10 mg 05/29/18 22:00 06/03/18 21:41 Melatonin PO 10 mg HS PRN Administration INSOMNIA Nicotine 21 mg 05/30/18 10:00 06/04/18 11:03 Nicoderm Patch - TD Not Given DAILY FAISAL Nicotine Polacrilex 4 mg 05/29/18 15:55 06/03/18 10:03 Nicorette Gum - BC 4 mg Q2H PRN Administration NICOTINE REPLACEMENT RX Multivit/Folic Acid/Iron 1 tab 05/30/18 10:00 06/04/18 11:02 Vitamins (Sjr) - PO 1 tab DAILY FAISAL Administration Pseudoephedrine/Triprolidine 1 combo 05/29/18 15:55 Actifed - PO TID PRN NASAL CONGESTION Thiamine HCl 100 mg 05/29/18 22:00 06/03/18 21:41 Vitamin B1 - PO 100 mg HS FAISAL Administration Current Side Effect: No Lab tests ordered: Yes Lab tests reviewed: Yes Provider note:: Patient has completed this program today. He has met his treatment plan and will continue addressing his issues by going to AA/NA. 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 He is stable for discharge today Total face to face time:: 35 Mental Status Exam - Mental Status Exam Alert and Oriented to: Time, Place, Person Cognitive Function: Fair Patient Appearance: Well Groomed Mood: Hopeful, Euthymic Affect: Appropriate Patient Behavior: Cooperative Speech Pattern: Clear Voice Loudness: Normal Thought Process: Intact Thought Disorder: Not Present Hallucinations: Denies Suicidal Ideation: Denies Homicidal Ideation: Denies Insight/Judgement: Fair Sleep: Fair Appetite: Fair Muscle strength/Tone: Severe Hypertonicity Gait/Station: Normal Psychiatric Treatment Plan - Problem List (1) Alcohol dependence Current Visit: Yes Qualifiers: Substance use status: uncomplicated Qualified Code(s): F10.20 - Alcohol dependence, uncomplicated (2) Nicotine dependence Current Visit: Yes Qualifiers: Nicotine product type: cigarettes Substance use status: in withdrawal Qualified Code(s): F17.213 - Nicotine dependence, cigarettes, with withdrawal (3) Anxiety Current Visit: Yes (4) Hypertension Current Visit: Yes Qualifiers: Hypertension type: essential hypertension Qualified Code(s): I10 - Essential (primary) hypertension (5) Hep C w/ coma, chronic Current Visit: Yes (6) Elevated LFTs Current Visit: No Initial treatment plan: Patient is discharged today and will be addressing his issues by attending AA/NA as he refused formal referreal for outpatine treatment
== END 2018-06-04 14:00 | disposition home or self-care (01) | DRG 772 ==
LOC: YASAS 13:49 → Y5N 18:24
PROVIDERS: ADMIT Psychiatry & Neurology Psychiatry; ATTEND Psychiatry & Neurology Psychiatry
PROC: HZ42ZZZ Group Counseling for Substance Abuse Treatment, Cognitive-Behavioral (ICD-10-PCS; principal; 2018-05-29)
DX: F10.20 Alcohol dependence, uncomplicated (principal); F17.213 Nicotine dependence, cigarettes, with withdrawal; F41.9 Anxiety disorder, unspecified; I10 Essential (primary) hypertension; B18.2 Chronic viral hepatitis C; R94.5 Abnormal results of liver function studies; Z87.19 Personal history of other diseases of the digestive system
CPT/HCPCS: 36415; 80053; 81003; 85027

== ENCOUNTER 2019-01-28 14:54 | Inpatient (IN) | payer OTHER ==
[2019-01-28 18:27] VITALS: BMI 26.7
--- NOTE | 2019-01-28 19:36 | HP ---
"COWS - Scale Resting Pulse: 0= [place] 80 or Below Sweatin=Flushed/Facial Moisture Restless Observation: 3= Extraneous Movement Pupil Size: 0= Normal to Room Light Bone or Joint Aches: 0= None Runny Nose/ Eye Tearin= None GI Upset > 30mins: 0= None Tremor Observation: 2= Slight Tremor Visible Yawning Observation: 0= None Anxiety or Irritability: 1=Feels Anxious/Irritable Goose Flesh Skin: 0=Smooth Skin COWS Score: 8 CIWA Score Nausea/Vomitin-No Nausea/No Vomiting Muscle Tremors: 3 Anxiety: 4-Mod. Anxious/Guarded Agitation: 4-Moderately Restless Paroxysmal Sweats: 3 (Increased facial moisture) Orientation: 2-Disoriented Date<2 days Tacttile Disturbances: 0-None Auditory Disturbances: 1-Very Mild Visual Disturbances: 2-Mild Sensitivity Headache: 4-Moderately Severe (Feels like a squeezing pain.) CIWA-Ar Total Score: 23 - Admission Criteria [facility] Guidelines: Admission for Medically Managed Detox: Requires at least one of the followin. CIWA greater than 12 2. Seizures within the past 24 hours 3. Delirium tremens within the past 24 hours 4. Hallucinations within the past 24 hours 5. Acute intervention needed for co occurring medical disorder 6. Acute intervention needed for co occurring psychiatric disorder 7. Severe withdrawal that cannot be handled at a lower level of care (continued vomiting, continued diarrhea, abnormal vital signs) requiring intravenous medication and/or fluids 8. Patient presents the following: CIWA greater than 12 Admission Criteria Met: Admission criteria met Admission ROS [facility] Chief Complaint: Having withdrawal symptoms. Allergies/Adverse Reactions: Allergies Allergy/AdvReac Type Severity Reaction Status Date / Time amoxicillin Allergy Severe Itching Verified 01/28/19 18:01 morphine Allergy Severe Verified 01/28/19 18:01 History of Present Illness: 52 yo with alcohol withdrawal seeking detox. Patient states also used cocaine and heroin. Alcohol use began at age 11. Normally drinks 1/5th daily. Heroin use began at age 16. Uses about 1x/week. Currently sniffs. Last used 5 days. Cocaine use began at age 17. Uses about 1 bag/week. Last used about about 2 days ago. Nasal. Nicotine use began at age 19. Current use 2 PPD. Hx: multiple blackouts - last 1 month ago. Hx: Overdose 1 month ago. No Narcan Kit Denies hx seizures. Utox: + JOELLE only. FANNY: 0.135 PMHx: HTN (no meds x 2 weeks); Hepatitis C; Pancreatitis; Last EKG@ [facility]: 05/17/18: NSR w/ incomplete BBB MHHx: Depression. Denies thoughts of harming self or others. Search Terms: Heron Lindsey, 1965 Search Date: 01/28/2019 07:34:29 PM The Drug Utilization Report below displays all of the controlled substance prescriptions, if any, that your patient has filled in the last twelve months. The information displayed on this report is compiled from pharmacy submissions to the Department, and accurately reflects the information as submitted by the pharmacies. This report was requested by: Diane Ramon | Reference #: [id number] There are no results for the search terms that you entered. Search Terms: Heron Lindsey, 1965 Search Date: 01/28/2019 07:34:58 PM States Searched: [place], [place], [place], [place], [place], [place], [place] The Drug Utilization Report below displays the controlled substance prescriptions, if any, that were dispensed in the indicated state(s). The information displayed on this report is compiled from requests submitted to other states' PMPs, and accurately reflects the information as returned by them. Blank lang indicate data not provided by other state. This report was requested by: Diane Ramon | Reference #: [id number] Exam Limitations: No Limitations - Ebola screening Have you traveled outside of the country in the last 21 days: No Have you had contact with anyone from an Ebola affected area: No Have you been sick,other than usual withdrawal symptoms: No (Denies knwn exposure to measles) Do you have a fever: No - Review of Systems Constitutional: Diaphoresis (Increased facial moisture) EENT: reports: Other (Ringing in ears x years - non-compliant w/ f/u referrals) Respiratory: reports: No Symptoms reported Cardiac: reports: No Symptoms Reported GI: reports: No Symptoms Reported : reports: No Symptoms Reported Musculoskeletal: reports: Back Pain (x 2 days.) Integumentary: reports: No Symptoms Reported Neuro: reports: Headache (Moderate - back of head, squeezing), Numbness ((L) small toe)) Endocrine: reports: Increased Thirst Hematology: reports: No Symptoms Reported Psychiatric: reports: Orientated x3 (Off by 2 days ago), Agitated, Anxious, Depressed (Denies thoughts of harming self or others.) Patient History - Patient Medical History Hx Anemia: No Hx Asthma: No Hx Chronic Obstructive Pulmonary Disease (COPD): No Hx Cancer: No Hx Cardiac Disorders: No Hx Congestive Heart Failure: No Hx Hypertension: No Hx Hypercholesterolemia: No Hx Pacemaker: No HX Cerebrovascular Accident: No Hx Seizures: No Hx Dementia: No Hx Diabetes: No Hx Gastrointestinal Disorders: No Hx Liver Disease: Yes (hepatitis c) Hx Genitourinary Disorders: No Hx Sexually Transmitted Disorders: No Hx Renal Disease (ESRD): No Hx Thyroid Disease: No Hx Human Immunodeficiency Virus (HIV): No (last 03/20 negative) Hx Hepatitis C: Yes (follow up with pmd no treatment) Hx Depression: Yes Hx Suicide Attempt: No Hx Bipolar Disorder: No Hx Schizophrenia: No - Patient Surgical History Past Surgical History: No Hx Neurologic Surgery: No Hx Cataract Extraction: No Hx Cardiac Surgery: No Hx Lung Surgery: No Hx Breast Surgery: No Hx Breast Biopsy: No Hx Abdominal Surgery: No Hx Appendectomy: No Hx Cholecystectomy: No Hx Genitourinary Surgery: No Hx Section: No Hx Orthopedic Surgery: No Anesthesia Reaction: No - PPD History Previous Implant?: Yes Documented Results: Negative w/proof Date: 05/19/18 Results: 0 MM PPD to be Administered?: No - Smoking Cessation Smoking history: Current every day smoker Have you smoked in the past 12 months: Yes Aproximately how many cigarettes per day: 40 Cigars Per Day: 0 Hx Chewing Tobacco Use: Yes Initiated information on smoking cessation: No - Substance & Tx. History Hx Alcohol Use: Yes Hx Substance Use: Yes Substance Use Type: Alcohol, Cocaine, Heroin Hx Substance Use Treatment: Yes (detox, rehab; ) - Substances abused Heroin Substance route: Injection Frequency: Daily Amount used: 10 bags Age of first use: 16 Date of last use: 01/26/19 Alcohol Substance route: Oral Frequency: Daily Amount used: liqour- 2 pints Age of first use: 11 Date of last use: 01/28/19 Cocaine Substance route: Injection Frequency: Daily Amount used: 1gm Age of first use: 17 Date of last use: 01/27/19 Family Disease History - Family Disease History Family Disease History: Diabetes: Mother Admission Physical Exam [facility] - Vital Signs Vital Signs: Vital Signs - 24 hr 01/28/19 18:08 Temperature 97.0 F L Pulse Rate 77 Respiratory 20 Rate Blood Pressure 150/100 - Physical General Appearance: Yes: Nourished, Moderate Distress, Irritable, Sweating ( Increased facial moisture), Anxious HEENTM: Yes: EOMI (Jerking movement of eyes upon (L) lateral gaze), Hearing grossly Normal, Normocephalic, Normal Voice, JOLYNN (Pupils = 3 mm), Pharynx Normal Respiratory: Yes: Lungs Clear (O2 Sat = 99 %), Normal Breath Sounds, No Respiratory Distress Neck: Yes: No masses,lesions,Nodules, Supple Breast: Yes: Breast Exam Deferred Cardiology: Yes: Regular Rhythm, S1, S2 Abdominal: Yes: Soft, Increased Bowel Sounds, Tenderness ((L) and mid-upper quad tenderness upon palpation.) Genitourinary: Yes: Other (states urine very dark) Back: Yes: Normal Inspection Musculoskeletal: Yes: full range of Motion, Gait Steady Extremities: Yes: Normal Capillary Refill, Normal Range of Motion, Tremors ( Mild tremors felt) 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 (3) Hypertension Current Visit: Yes Status: Chronic Qualifiers: Hypertension type: essential hypertension Qualified Code(s): I10 - Essential (primary) hypertension (4) Insomnia Current Visit: Yes Status: Chronic Qualifiers: Insomnia type: unspecified Qualified Code(s): G47.00 - Insomnia, unspecified (5) Nicotine dependence Current Visit: Yes Status: Chronic Qualifiers: Nicotine product type: cigarettes Substance use status: in withdrawal Qualified Code(s): F17.213 - Nicotine dependence, cigarettes, with withdrawal Cleared for Admission [facility] - Detox or Rehab [facility] Level of Care: Medically Managed Detox Regimen/Protocol: Librium Claeared for Rehab Admission: No Breathalyzer - Breathalyzer Breathalyzer: 0.135 Urine Drug Screen - Test Device Lot number: [id number] Expiration date: 10/30/20 - Control Is test valid?: Yes - Results Drug screen NEGATIVE: No Urine drug screen results: JOELLE-Cocaine Inpatient Rehab Admission - Rehab Decision to Admit Inpatient rehab admission?: No"
[2019-01-28] MEDS ORDERED: MAG HYDROX/AL HYDROX/SIMETH 30 ML UNIT-DOSE CUP PO PRN (20:04)
[2019-01-28] MEDS ORDERED: MELATONIN 5 MG TABLETS PO PRN (20:04)
[2019-01-28] MEDS ORDERED: BISMUTH SUBSALICYLATE 524 MG/30 ML UD PO PRN (20:04)
[2019-01-28] MEDS ORDERED: ACETAMINOPHEN 325 MG TABLET (FP) PO PRN ×2 (20:04)
[2019-01-28] MEDS ORDERED: MAGNESIUM HYDROX 2400MG/30ML ORAL SUSPENSION 30 ML CUP PO PRN (20:04)
[2019-01-28] MEDS ORDERED: IBUPROFEN 400 MG TABLET (FP) PO PRN (20:04)
[2019-01-28] MEDS ORDERED: chlordiazePOXIDE HCL 25 MG CAPSULE PO PRN (20:04)
[2019-01-28] MEDS ORDERED: MAGNESIUM CITRATE 300 ML BOTTLE PO PRN (20:04)
[2019-01-28] MEDS ORDERED: MENTHOL/PHENOL 1 EACH UD MM PRN (20:04)
[2019-01-28] MEDS ORDERED: cloNIDine HCL 0.1 MG TABLET PO ONE (20:07)
[2019-01-28] MEDS: THIAMINE HCL 100 MG TABLET (FP) PO SCH (21:07)
[2019-01-28] MEDS: NICOTINE POLACRILEX 4 MG GUM BUC PRN (21:11)
[2019-01-28] MEDS: chlordiazePOXIDE HCL 25 MG CAPSULE PO SCH (22:24)
[2019-01-29] MEDS: chlordiazePOXIDE HCL 25 MG CAPSULE PO SCH ×4 (06:22→22:16)
--- NOTE | 2019-01-29 09:32 | EKG ---
Test Reason : Blood Pressure : / mmHG Vent. Rate : 068 BPM Atrial Rate : 068 BPM P-R Int : 208 ms QRS Dur : 098 ms QT Int : 434 ms P-R-T Axes : 030 -12 010 degrees QTc Int : 461 ms NORMAL SINUS RHYTHM INCOMPLETE RIGHT BUNDLE BRANCH BLOCK BORDERLINE ECG WHEN COMPARED WITH ECG OF 17-MAY-2018 11:58, NO SIGNIFICANT CHANGE WAS FOUND Confirmed by Christian Fortune MD ([id number]) on 01/29/2019 9:31:48 AM Referred By: Kjoo CORONADO Confirmed By:Christian Fortune MD
[2019-01-29] MEDS: NICOTINE 21 MG/24 HOURS TOPICAL PATCH TD SCH (10:04)
[2019-01-29] MEDS: LISINOPRIL 5 MG TABLET (FP) PO SCH (10:04)
[2019-01-29] MEDS: PRENATAL VITAMINS W/ FOLIC ACID TABLET (FP) PO SCH (10:04)
[2019-01-29 10:41] LABS: ALBUMIN 2.8 g/dl (3.4-5.0); BILIRUBIN,TOTAL 0.3 mg/dL (0.2-1); BLOOD UREA NITROGEN 11.5 mg/dL (7-18); CALCIUM 8.1 mg/dL (8.5-10.1); CREATININE 0.8 mg/dL (0.55-1.3); POTASSIUM 3.6 mmol/L (3.5-5.1); TOT PROT 7.8 g/dl (6.4-8.2)
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
[2019-01-29 11:03] LABS: HEMATOCRIT 35.8 % (35.4-49); HEMOGLOBIN 12.3 GM/dL (11.7-16.9); MCH 34.9 pg (25.7-33.7); MCHC 34.3 g/dl (32.0-35.9); MEAN CELL VOLUME 101.8 fl (80-96); MEAN PLT VOLUME 8.1 fl (7.5-11.1); PLATELET COUNT 140 K/MM3 (134-434); RBC 3.51 M/mm3 (4.00-5.60); RDW 12.6 % (11.9-15.9); WHITE BLOOD COUNT 3.2 K/mm3 (4.0-10.0)
[2019-01-29] MEDS: METHOCARBAMOL 500 MG TABLET PO PRN ×2 (12:38→18:13)
--- NOTE | 2019-01-29 16:02 | PN ---
[facility] CIWA - CIWA Score Nausea/Vomitin-No Nausea/No Vomiting Muscle Tremors: 3 Anxiety: 3 Agitation: 2 Paroxysmal Sweats: No Perspiration Orientation: 2-Disoriented Date<2 days Tacttile Disturbances: 2-Mild Itch/Numbness/Burn Auditory Disturbances: 0-None Visual Disturbances: 2-Mild Sensitivity Headache: 0-None Present CIWA-Ar Total Score: 14 S COWS - Scale Resting Pulse: 0= [place] 80 or Below Sweatin= No chills or Flushing Restless Observation: 1= Difficult to Sit Still Pupil Size: 0= Normal to Room Light Bone or Joint Aches: 2= Severe Diffuse Aches Runny Nose/ Eye Tearin= None GI Upset > 30mins: 0= None Tremor Observation of Outstretched Hands: 2= Slight Tremor Visible Yawning Observation: 1= 1-2x During Session Anxiety or Irritability: 2=Irritable/Anxious Goose Flesh Skin: 3=Piloerection COWS Score: 11 S Progress Note (SOAP) Subjective: Tremors, Interrupted Sleep, Body Aches. Objective: PATIENT A & O X 2 (UNCERTAIN ABOUT CURRENT DAY / DATE). PATIENT OBSERVED AMBULATING ON UNIT UNASSISTED. IN NO ACUTE DISTRESS. 01/29/19 16:06 Vital Signs Temperature 97.3 F L 01/29/19 13:32 Pulse Rate 72 01/29/19 13:32 Respiratory Rate 18 01/29/19 13:32 Blood Pressure 145/92 01/29/19 13:32 O2 Sat by Pulse Oximetry (%) Laboratory Tests 01/29/19 01/29/19 07:00 07:00 WBC 3.2 L RBC 3.51 L Hgb 12.3 Hct 35.8 D MCV 101.8 H MCH 34.9 H MCHC 34.3 RDW 12.6 Plt Count 140 D MPV 8.1 Sodium 139 Potassium 3.6 Chloride 105 Carbon Dioxide 25 Anion Gap 9 BUN 11.5 Creatinine 0.8 Est GFR (CKD-EPI)AfAm 119.88 Est GFR (CKD-EPI)NonAf 103.43 Random Glucose 178 H Calcium 8.1 L Total Bilirubin 0.3 AST 111 H ALT 96 H Alkaline Phosphatase 165 H Total Protein 7.8 Albumin 2.8 L Total Amylase 116 H Lipase 181 LABS NOTED. PATIENT HAS HAD ELEVATED LIVER ENZYMES AND ELEVATED RANDOM GLUCOSE LEVELS ON PREVIOUS ADMISSIONS. 01/29/19 16:07 Assessment: 01/29/19 16:06 WITHDRAWAL SYMPTOMS. LEUKOPENIA. ELEVATED LIVER ENZYMES. HYPOCALCEMIA. HYPERGLYCEMIA. HYPERTENSION. 01/29/19 16:07 Plan: CONTINUE DETOX. INCREASE DAILY PO WATER INTAKE. AMLODIPINE, 5 MG PO DAILY ORDERED FOR ELEVATED BLOOD PRESSURE. EXTERNAL MEDICATION REVIEW IN [facility] SHOWS THAT PATIENT HAS BEEN PRESCRIBED ON OUTPATIENT BASIS IN RECENT PAST. PATIENT REPORTS HISTORY OF ACUTE PANCREATITIS. AMYLASE AND LIPASE CHECKED ON DETOX ADMISSION. AMYLASE VERY SLIGHTLY ELEVATED (116). LIPASE WITHIN NORMAL RANGE. WILL RE-CHECK AGAIN TOMORROW AM. ELEVATED RANDOM GLUCOSE LEVEL NOTED ON DETOX ADMISSION. PATIENT DENIES KNOWN HISTORY OF DM. ORDER FASTING GLUCOSE LEVEL FOR TOMORROW. OSCAL, 500 MG PO BID FOR LOW CA LEVEL NOTED ON DETOX ADMISSION LABORATORY ASSESSMENT. PATIENT ADVISED TO IMMEDIATELY NOTIFY MEDICAL/NURSING STAFF SHOULD ANY UNUSUAL SYMPTOMS, SUCH ABDOMINAL PAIN, OCCUR AT ANY TIME. PATIENT VERBALIZED UNDERSTANDING OF RECOMMENDATION. HEPATIC FUNCTION PANEL ORDERED FOR TOMORROW AM FOR ELEVATED LIVER ENZYMES NOTED ON DETOX ADMISSION LABORATORY ASSESSMENT. GLUCERNA (ELEVATED RANDOM GLUCOSE LEVEL NOTED ON DETOX ADMISSION ASSESSMENT) PO ORDERED FOR CALORIC SUPPLEMENTATION.
[2019-01-29] MEDS: amLODIPine BESYLATE 5 MG TABLET (FP) PO SCH (16:46)
[2019-01-29] MEDS: NICOTINE POLACRILEX 4 MG GUM BUC PRN (17:15)
[2019-01-29 19:43] LABS: PH,URINE 7.5 (5.0-8.0); URINE APPEARANCE CLEAR; URINE BILIRUBIN NEGATIVE (NEGATIVE); URINE COLOR YELLOW; URINE GLUCOSE (UA) NEGATIVE (NEGATIVE); URINE KETONE NEGATIVE (NEGATIVE); URINE LEUK ESTERASE NEGATIVE (NEGATIVE); URINE NITRITE NEGATIVE (NEGATIVE); URINE PROTEIN NEGATIVE (NEGATIVE)
[2019-01-29] MEDS ORDERED: QUEtiapine FUMARATE 50 MG TABLET PO SCH (22:00)
[2019-01-29] MEDS: THIAMINE HCL 100 MG TABLET (FP) PO SCH (22:15)
[2019-01-29] MEDS: CALCIUM 500MG/VIT-D 200 UNITS COMBO TABLET (FP) PO SCH (22:15)
[2019-01-30] MEDS: chlordiazePOXIDE HCL 25 MG CAPSULE PO SCH ×4 (05:19→22:13)
[2019-01-30 10:32] LABS: AMYLASE 121 U/L (25-115); GLUCOSE,FASTING 119 mg/dL (74-106); LIPASE 191 U/L (73-393)
[2019-01-30 10:43] LABS: ALBUMIN 2.7 g/dl (3.4-5.0); BILIRUBIN,DIRECT 0.2 mg/dL (0.0-0.2); BILIRUBIN,TOTAL 0.4 mg/dL (0.2-1); TOT PROT 7.8 g/dl (6.4-8.2)
[2019-01-30] MEDS: amLODIPine BESYLATE 5 MG TABLET (FP) PO SCH (10:55)
[2019-01-30] MEDS: NICOTINE 21 MG/24 HOURS TOPICAL PATCH TD SCH (10:55)
[2019-01-30] MEDS: CALCIUM 500MG/VIT-D 200 UNITS COMBO TABLET (FP) PO SCH ×2 (10:55→22:13)
[2019-01-30] MEDS: LISINOPRIL 5 MG TABLET (FP) PO SCH (10:55)
[2019-01-30] MEDS: PRENATAL VITAMINS W/ FOLIC ACID TABLET (FP) PO SCH (10:57)
[2019-01-30] MEDS: NICOTINE POLACRILEX 4 MG GUM BUC PRN (10:58)
--- NOTE | 2019-01-30 13:13 | PN ---
[facility] CIWA - CIWA Score Nausea/Vomitin-Mild Nausea/No Vomiting Muscle Tremors: 3 Anxiety: 2 Agitation: 2 Paroxysmal Sweats: 1-Minimal Palms Moist Orientation: 0-Oriented Tacttile Disturbances: 1-Very Mild Itch/Numbness Auditory Disturbances: 0-None Visual Disturbances: 0-None Headache: 1-Very Mild CIWA-Ar Total Score: 11 S Progress Note (SOAP) Subjective: 53 years old male admitted on 01/28/19 for acute alcohol withdrawal sx management doing well with librium detox regimen ambulating on hallway social with peers discuss aftercare with staff prefers [facility] Objective: 01/30/19 13:14 Vital Signs Temperature 97.2 F L 01/30/19 09:33 Pulse Rate 85 01/30/19 09:33 Respiratory Rate 18 01/30/19 09:33 Blood Pressure 115/77 01/30/19 09:33 O2 Sat by Pulse Oximetry (%) Laboratory Last Values WBC 3.2 K/mm3 (4.0-10.0) L 01/29/19 07:00 RBC 3.51 M/mm3 (4.00-5.60) L 01/29/19 07:00 Hgb 12.3 GM/dL (11.7-16.9) 01/29/19 07:00 Hct 35.8 % (35.4-49) D 01/29/19 07:00 MCV 101.8 fl (80-96) H 01/29/19 07:00 MCH 34.9 pg (25.7-33.7) H 01/29/19 07:00 MCHC 34.3 g/dl (32.0-35.9) 01/29/19 07:00 RDW 12.6 % (11.9-15.9) 01/29/19 07:00 Plt Count 140 K/MM3 (134-434) D 01/29/19 07:00 MPV 8.1 fl (7.5-11.1) 01/29/19 07:00 Sodium 139 mmol/L (136-145) 01/29/19 07:00 Potassium 3.6 mmol/L (3.5-5.1) 01/29/19 07:00 Chloride 105 mmol/L (98-107) 01/29/19 07:00 Carbon Dioxide 25 mmol/L (21-32) 01/29/19 07:00 Anion Gap 9 MMOL/L (8-16) 01/29/19 07:00 BUN 11.5 mg/dL (7-18) 01/29/19 07:00 Creatinine 0.8 mg/dL (0.55-1.3) 01/29/19 07:00 Est GFR (CKD-EPI)AfAm 119.88 01/29/19 07:00 Est GFR (CKD-EPI)NonAf 103.43 01/29/19 07:00 Random Glucose 178 mg/dL (74-106) H 01/29/19 07:00 Fasting Glucose 119 mg/dL (74-106) H 01/30/19 07:30 Calcium 8.1 mg/dL (8.5-10.1) L 01/29/19 07:00 Total Bilirubin 0.4 mg/dL (0.2-1) 01/30/19 07:30 Direct Bilirubin 0.2 mg/dL (0.0-0.2) 01/30/19 07:30 AST 96 U/L (15-37) H 01/30/19 07:30 ALT 86 U/L (13-61) H 01/30/19 07:30 Alkaline Phosphatase 215 U/L (45-117) H 01/30/19 07:30 Total Protein 7.8 g/dl (6.4-8.2) 01/30/19 07:30 Albumin 2.7 g/dl (3.4-5.0) L 01/30/19 07:30 Total Amylase 121 U/L (25-115) H 01/30/19 07:30 Lipase 191 U/L (73-393) 01/30/19 07:30 Urine Color Yellow 01/29/19 17:10 Urine Appearance Clear 01/29/19 17:10 Urine pH 7.5 (5.0-8.0) D 01/29/19 17:10 Ur Specific [place] 1.024 (1.010-1.035) 01/29/19 17:10 Urine Protein Negative (NEGATIVE) 01/29/19 17:10 Urine Glucose (UA) Negative (NEGATIVE) 01/29/19 17:10 Urine Ketones Negative (NEGATIVE) 01/29/19 17:10 Urine Blood Negative (NEGATIVE) 01/29/19 17:10 Urine Nitrite Negative (NEGATIVE) 01/29/19 17:10 Urine Bilirubin Negative (NEGATIVE) 01/29/19 17:10 Urine Urobilinogen 2.0 mg/dL (0.2-1.0) 01/29/19 17:10 Ur Leukocyte Esterase Negative (NEGATIVE) 01/29/19 17:10 RPR Titer Nonreactive (NONREACTIVE) 01/29/19 07:00 lab noted Assessment: 01/30/19 13:14 alcohol withdrawal sx Plan: continue alcohol detox
--- NOTE | 2019-01-30 18:28 | PN ---
Psychiatric Progress Note Vital Signs: Vital Signs Period Temp Pulse Resp BP Sys/Zhao Pulse Ox Last 24 Hr 96.7 F-97.7 F 66-87 18-18 95-136/63-90 Date of Session: 01/30/19 Chief Complaint:: " I feel restless, and irritable." HPI: Patient admitted for alcohol and cocaine dependence. ROS: Patient is coherent, alert and oriented X3. Current Medications: Active Medications Generic Name Dose Route Start Last Admin Trade Name Freq PRN Reason Stop Dose Admin Acetaminophen 650 mg 01/28/19 20:04 Tylenol - PO Q6H PRN PAIN LEVEL 4 - 6 Acetaminophen 650 mg 01/28/19 20:04 Tylenol - PO Q6H PRN FEVER Al Hydroxide/Mg Hydroxide 30 ml 01/28/19 20:04 01/29/19 13:42 Mylanta Oral Suspension - PO 30 ml Q6H PRN Administration DYSPEPSIA Amlodipine Besylate 5 mg 01/29/19 16:15 01/30/19 10:55 Norvasc - PO 5 mg DAILY FAISAL Administration Bismuth Subsalicylate 524 mg 01/28/19 20:04 Pepto-Bismol - PO Q1H PRN DIARRHEA Calcium Carbonate/Cholecalciferol 1 tab 01/29/19 22:00 01/30/19 10:55 Os-Arron 500+D - PO 1 tab BID FAISAL Administration Chlordiazepoxide HCl 10 mg 01/31/19 05:00 Librium - PO 01/31/19 23:01 [id number] FAISAL Chlordiazepoxide HCl 10 mg 02/01/19 05:00 Librium - PO 02/01/19 17:01 Q12H FAISAL Chlordiazepoxide HCl 10 mg 01/31/19 00:00 Librium - PO 02/01/19 00:00 Q4H PRN WITHDRAWAL(CONT SUBST) Chlordiazepoxide HCl 10 mg 02/02/19 05:00 Librium - PO 02/02/19 05:01 ONCE@0500 ONE Chlordiazepoxide HCl 25 mg 01/30/19 05:00 01/30/19 17:07 Librium - PO 01/30/19 23:01 25 mg [id number] FAISAL Administration Chlordiazepoxide HCl 25 mg 01/28/19 20:04 01/29/19 18:13 Librium - PO 01/30/19 23:59 25 mg Q4H PRN Administration WITHDRAWAL(CONT SUBST) Eucalyptus/Menthol/Phenol/Sorbitol 1 each 01/28/19 20:04 Cepastat Lozenge - MM 02/03/19 20:04 Q4H PRN SORE THROAT Hydroxyzine Pamoate 50 mg 01/30/19 18:25 Vistaril - PO Q4H PRN ANXIETY Ibuprofen 400 mg 01/28/19 20:04 01/29/19 04:25 Motrin - PO 400 mg Q6H PRN Administration PAIN LEVEL 1 - 3 Lisinopril 5 mg 01/29/19 10:00 01/30/19 10:55 Prinivil PO 5 mg DAILY FAISAL Administration Magnesium Citrate 300 ml 01/28/19 20:04 Citroma - PO Q48H PRN CONSTIPATION Magnesium Hydroxide 30 ml 01/28/19 20:04 Milk Of Magnesia - PO PRN PRN CONSTIPATION Melatonin 5 mg 01/28/19 20:04 Melatonin PO HS PRN INSOMNIA Methocarbamol 500 mg 01/28/19 20:04 01/29/19 18:13 Robaxin - PO 02/03/19 20:04 500 mg Q6H PRN Administration MUSCLE SPASMS Nicotine 21 mg 01/29/19 10:00 01/30/19 10:55 Nicoderm Patch - TD 21 mg DAILY FAISAL Administration Nicotine Polacrilex 4 mg 01/28/19 20:04 01/30/19 10:58 Nicorette Gum - BUC 4 mg Q2H PRN Administration NICOTINE REPLACEMENT RX Multivit/Folic Acid/Iron 1 tab 01/29/19 10:00 01/30/19 10:57 Vitamins (Sjr) - PO 1 tab DAILY FAISAL Administration Quetiapine Fumarate 100 mg 01/30/19 22:00 Seroquel - PO HS FAISAL Thiamine HCl 100 mg 01/28/19 22:00 01/29/19 22:15 Vitamin B1 - PO 100 mg HS FAISAL Administration Medication(s) Change(s): Yes. Will d/c seroquel 50mg HS. Will order Seroquel 100mg HS and vistaril 50mg q4h. Current Side Effect: No Lab tests ordered: No Lab tests reviewed: Yes Provider note:: Patient reports feeling restless, irritable, edgy, fearful and is experiencing difficulty sleeping. He reports feeling fearful of exhibiting symptoms of paranoia, or hearing voices and radio stations which he reported experiencing before admission to detox. Patient denies h/o psychiatric treatment At present patient denies psychotic symptoms. No psychosis noted. Patient able to tolerate seroquel 50mg HS last night. Will d/c seroquel 50mg HS. Will order Seroquel 100mg HS + Vistaril 50mg q4h. Benefits and side effects discussed. Verbal consent given. Total face to face time:: 25 Mental Status Exam - Mental Status Exam Alert and Oriented to: Time, Place, Person Cognitive Function: Good Patient Appearance: Well Groomed Mood: Sad Affect: Mood Congruent Patient Behavior: Fatigued, Cooperative Speech Pattern: Appropriate Voice Loudness: Normal Thought Process: Goal Oriented Thought Disorder: Not Present Hallucinations: Denies Suicidal Ideation: Denies Homicidal Ideation: Denies Insight/Judgement: Poor Sleep: Poorly Appetite: Fair Muscle strength/Tone: Normal Gait/Station: Normal Psychiatric Treatment Plan - Problem List (1) Cocaine use disorder Current Visit: Yes (2) Alcohol dependence with uncomplicated withdrawal Current Visit: Yes (3) Nicotine dependence Current Visit: Yes Qualifiers: Nicotine product type: cigarettes Substance use status: in withdrawal Qualified Code(s): F17.213 - Nicotine dependence, cigarettes, with withdrawal (4) Drug-induced mood disorder Current Visit: Yes (5) Schizophreniform disorder Current Visit: Yes
[2019-01-30] MEDS: hydrOXYzine PAMOATE 50 MG CAPSULE (FP) PO PRN (19:24)
[2019-01-30] MEDS ORDERED: QUEtiapine FUMARATE 100 MG TABLET (FP) PO SCH (22:00)
[2019-01-30] MEDS: THIAMINE HCL 100 MG TABLET (FP) PO SCH (22:13)
[2019-01-31] MEDS ORDERED: chlordiazePOXIDE HCL 10 MG CAPSULE PO PRN
[2019-01-31] MEDS: chlordiazePOXIDE HCL 10 MG CAPSULE PO SCH ×4 (05:25→23:06)
[2019-01-31] MEDS: hydrOXYzine PAMOATE 50 MG CAPSULE (FP) PO PRN ×2 (08:58→13:49)
[2019-01-31] MEDS: PRENATAL VITAMINS W/ FOLIC ACID TABLET (FP) PO SCH (10:43)
[2019-01-31] MEDS: amLODIPine BESYLATE 5 MG TABLET (FP) PO SCH (10:43)
[2019-01-31] MEDS: NICOTINE 21 MG/24 HOURS TOPICAL PATCH TD SCH (10:43)
[2019-01-31] MEDS: LISINOPRIL 5 MG TABLET (FP) PO SCH (10:44)
[2019-01-31] MEDS: NICOTINE POLACRILEX 4 MG GUM BUC PRN (10:47)
[2019-01-31] MEDS: CALCIUM 500MG/VIT-D 200 UNITS COMBO TABLET (FP) PO SCH ×2 (10:47→23:07)
--- NOTE | 2019-01-31 13:23 | PN ---
S CIWA - CIWA Score Nausea/Vomitin-Mild Nausea/No Vomiting Muscle Tremors: 2 Anxiety: 2 Agitation: 2 Paroxysmal Sweats: 1-Minimal Palms Moist Orientation: 0-Oriented Tacttile Disturbances: 0-None Auditory Disturbances: 0-None Visual Disturbances: 0-None Headache: 0-None Present CIWA-Ar Total Score: 8 BHS Progress Note (SOAP) Subjective: patient has long history of schizophrenia treated with antipsychotic medication last dose "many years ago" drug free x 15 years "I have a job my and children) recent relapse "I want to go back home" patient had verbal altercation with room 367B team approach patient is able to contract for safety and focus on maintaining sobriety and goal directed behavior due to long history of mental illness psychiatric referral for possible prn for antipsychotic medication Objective: 01/31/19 13:23 Vital Signs Temperature 96.7 F L 01/31/19 09:44 Pulse Rate 75 01/31/19 09:44 Respiratory Rate 18 01/31/19 09:44 Blood Pressure 123/88 01/31/19 09:44 O2 Sat by Pulse Oximetry (%) Laboratory Last Values WBC 3.2 K/mm3 (4.0-10.0) L 01/29/19 07:00 RBC 3.51 M/mm3 (4.00-5.60) L 01/29/19 07:00 Hgb 12.3 GM/dL (11.7-16.9) 01/29/19 07:00 Hct 35.8 % (35.4-49) D 01/29/19 07:00 MCV 101.8 fl (80-96) H 01/29/19 07:00 MCH 34.9 pg (25.7-33.7) H 01/29/19 07:00 MCHC 34.3 g/dl (32.0-35.9) 01/29/19 07:00 RDW 12.6 % (11.9-15.9) 01/29/19 07:00 Plt Count 140 K/MM3 (134-434) D 01/29/19 07:00 MPV 8.1 fl (7.5-11.1) 01/29/19 07:00 Sodium 139 mmol/L (136-145) 01/29/19 07:00 Potassium 3.6 mmol/L (3.5-5.1) 01/29/19 07:00 Chloride 105 mmol/L (98-107) 01/29/19 07:00 Carbon Dioxide 25 mmol/L (21-32) 01/29/19 07:00 Anion Gap 9 MMOL/L (8-16) 01/29/19 07:00 BUN 11.5 mg/dL (7-18) 01/29/19 07:00 Creatinine 0.8 mg/dL (0.55-1.3) 01/29/19 07:00 Est GFR (CKD-EPI)AfAm 119.88 01/29/19 07:00 Est GFR (CKD-EPI)NonAf 103.43 01/29/19 07:00 Random Glucose 178 mg/dL (74-106) H 01/29/19 07:00 Fasting Glucose 119 mg/dL (74-106) H 01/30/19 07:30 Calcium 8.1 mg/dL (8.5-10.1) L 01/29/19 07:00 Total Bilirubin 0.4 mg/dL (0.2-1) 01/30/19 07:30 Direct Bilirubin 0.2 mg/dL (0.0-0.2) 01/30/19 07:30 AST 96 U/L (15-37) H 01/30/19 07:30 ALT 86 U/L (13-61) H 01/30/19 07:30 Alkaline Phosphatase 215 U/L (45-117) H 01/30/19 07:30 Total Protein 7.8 g/dl (6.4-8.2) 01/30/19 07:30 Albumin 2.7 g/dl (3.4-5.0) L 01/30/19 07:30 Total Amylase 121 U/L (25-115) H 01/30/19 07:30 Lipase 191 U/L (73-393) 01/30/19 07:30 Urine Color Yellow 01/29/19 17:10 Urine Appearance Clear 01/29/19 17:10 Urine pH 7.5 (5.0-8.0) D 01/29/19 17:10 Ur Specific [place] 1.024 (1.010-1.035) 01/29/19 17:10 Urine Protein Negative (NEGATIVE) 01/29/19 17:10 Urine Glucose (UA) Negative (NEGATIVE) 01/29/19 17:10 Urine Ketones Negative (NEGATIVE) 01/29/19 17:10 Urine Blood Negative (NEGATIVE) 01/29/19 17:10 Urine Nitrite Negative (NEGATIVE) 01/29/19 17:10 Urine Bilirubin Negative (NEGATIVE) 01/29/19 17:10 Urine Urobilinogen 2.0 mg/dL (0.2-1.0) 01/29/19 17:10 Ur Leukocyte Esterase Negative (NEGATIVE) 01/29/19 17:10 RPR Titer Nonreactive (NONREACTIVE) 01/29/19 07:00 lab noted history of acute pancreatitis currently denies pain tolerate food and fluid well lipase 191 Assessment: 01/31/19 13:24 alcohol withdrawal sx schizophrenia Plan: continue alcohol detox psychiatric referral
--- NOTE | 2019-01-31 14:20 | PN ---
Psychiatric Progress Note Vital Signs: Vital Signs Period Temp Pulse Resp BP Sys/Zhao Pulse Ox Last 24 Hr 96.7 F-97.3 F 75-83 18-19 116-127/80-89 Date of Session: 01/31/19 Chief Complaint:: ask to be seen by nursing staff. HPI: Patient admitted to for alcohol and cocaine dependence. ROS: Patient is coherent, alert and oriented X3. Current Medications: Active Medications Generic Name Dose Route Start Last Admin Trade Name Freq PRN Reason Stop Dose Admin Acetaminophen 650 mg 01/28/19 20:04 Tylenol - PO Q6H PRN PAIN LEVEL 4 - 6 Acetaminophen 650 mg 01/28/19 20:04 Tylenol - PO Q6H PRN FEVER Al Hydroxide/Mg Hydroxide 30 ml 01/28/19 20:04 01/29/19 13:42 Mylanta Oral Suspension - PO 30 ml Q6H PRN Administration DYSPEPSIA Amlodipine Besylate 5 mg 01/29/19 16:15 01/31/19 10:43 Norvasc - PO 5 mg DAILY FAISAL Administration Bismuth Subsalicylate 524 mg 01/28/19 20:04 Pepto-Bismol - PO Q1H PRN DIARRHEA Calcium Carbonate/Cholecalciferol 1 tab 01/29/19 22:00 01/31/19 10:47 Os-Arron 500+D - PO 1 tab BID FAISAL Administration Chlordiazepoxide HCl 10 mg 01/31/19 05:00 01/31/19 10:43 Librium - PO 01/31/19 23:01 10 mg [id number] FAISAL Administration Chlordiazepoxide HCl 10 mg 02/01/19 05:00 Librium - PO 02/01/19 17:01 Q12H FAISAL Chlordiazepoxide HCl 10 mg 01/31/19 00:00 Librium - PO 02/01/19 00:00 Q4H PRN WITHDRAWAL(CONT SUBST) Chlordiazepoxide HCl 10 mg 02/02/19 05:00 Librium - PO 02/02/19 05:01 ONCE@0500 ONE Eucalyptus/Menthol/Phenol/Sorbitol 1 each 01/28/19 20:04 Cepastat Lozenge - MM 02/03/19 20:04 Q4H PRN SORE THROAT Hydroxyzine Pamoate 50 mg 01/30/19 18:25 08/01/19 13:49 Vistaril - PO 50 mg Q4H PRN Administration ANXIETY Ibuprofen 400 mg 01/28/19 20:04 01/29/19 04:25 Motrin - PO 400 mg Q6H PRN Administration PAIN LEVEL 1 - 3 Lisinopril 5 mg 01/29/19 10:00 01/31/19 10:44 Prinivil PO 5 mg DAILY FAISAL Administration Magnesium Citrate 300 ml 01/28/19 20:04 Citroma - PO Q48H PRN CONSTIPATION Magnesium Hydroxide 30 ml 01/28/19 20:04 Milk Of Magnesia - PO PRN PRN CONSTIPATION Melatonin 5 mg 01/28/19 20:04 Melatonin PO HS PRN INSOMNIA Methocarbamol 500 mg 01/28/19 20:04 01/29/19 18:13 Robaxin - PO 02/03/19 20:04 500 mg Q6H PRN Administration MUSCLE SPASMS Nicotine 21 mg 01/29/19 10:00 01/31/19 10:43 Nicoderm Patch - TD 21 mg DAILY FAISAL Administration Nicotine Polacrilex 4 mg 01/28/19 20:04 01/31/19 10:47 Nicorette Gum - BUC 4 mg Q2H PRN Administration NICOTINE REPLACEMENT RX Multivit/Folic Acid/Iron 1 tab 01/29/19 10:00 01/31/19 10:43 Vitamins (Sjr) - PO 1 tab DAILY FAISAL Administration Quetiapine Fumarate 100 mg 01/30/19 22:00 01/30/19 22:13 Seroquel - PO 100 mg HS FAISAL Administration Thiamine HCl 100 mg 01/28/19 22:00 01/30/19 22:13 Vitamin B1 - PO 100 mg HS FAISAL Administration Medication(s) Change(s): Yes. Will d/c Seroquel 100mg and order Seroquel 150mg HS. Current Side Effect: No Lab tests ordered: No Lab tests reviewed: Yes Provider note:: Client Services Specialist asked to see patient after patient reported feeling paranoid secondary to having a verbal dispute on the unit. Upon approach patient was calm and coopertive and able to walk into speech writer's office. As per Mr. Fitzpatrick, he was speaking to a patient concerning her lunch when another patient told him to "get the fuck out the way". Mr Fitzpatrick was quickly triggered by the patient's words but was able to maintain his composure and not retaliate. He reports being able to de escalate himself and walk away from the situation. 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 While speaking to speech writer, Mr. Fitzpatrick denied feeling paranoid but did mention that he has to watch the patient who cursed at him because he has friends on the unit. He denied feeling as if someone was trying to hurt him. Mr. fitzpatrick reports history of multiple incarcerations. He stated to speech writer, " I 'm not afraid but you have to watch people. I'm here to get better. Other people are here to find clients to buy drugs from." Patient reported experiencing auditory hallucinations of two voices speaking to each other during the dispute. States the voices usually occur when his stress level worsens. He denies the voices telling him to hurt self or others. While speaking to speech writer he denies auditory/visual hallucination and paranoia but stated the ringing in his head is constant. Patient has been compliant with treatment and has been cooperative with staff. Patient in agreement with an increase in Seroquel. Will d/c seroquel 100mg and will order Seroquel 150mg. Benefits and side effects discussed. Verbal consent given. Total face to face time:: 35 Mental Status Exam - Mental Status Exam Alert and Oriented to: Time, Place, Person Cognitive Function: Good Patient Appearance: Well Groomed Mood: Sad Affect: Mood Congruent Patient Behavior: Cooperative Speech Pattern: Clear Voice Loudness: Moderately Soft/Quiet Thought Process: Goal Oriented Thought Disorder: Present (Patient may be slightly paranoid but is in good control and is accepting medications. ) Hallucinations: Denies (Reports constant ringing in his head. ) Suicidal Ideation: Denies Homicidal Ideation: Denies Insight/Judgement: Poor Sleep: Fair Appetite: Fair Muscle strength/Tone: Normal Gait/Station: Normal Psychiatric Treatment Plan - Problem List (1) Cocaine use disorder Current Visit: Yes (2) Alcohol dependence with uncomplicated withdrawal Current Visit: Yes (3) Nicotine dependence Current Visit: Yes Qualifiers: Nicotine product type: cigarettes Substance use status: in withdrawal Qualified Code(s): F17.213 - Nicotine dependence, cigarettes, with withdrawal (4) Drug-induced mood disorder Current Visit: Yes (5) Schizophreniform disorder Current Visit: Yes
--- NOTE | 2019-01-31 19:56 | PN ---
[facility] Progress Note Note: Vital Signs Temperature 98.0 F 01/31/19 19:50 Pulse Rate 88 01/31/19 19:50 Respiratory Rate 18 01/31/19 19:50 Blood Pressure 130/92 01/31/19 19:50 O2 Sat by Pulse Oximetry (%) Laboratory Last Values WBC 3.2 K/mm3 (4.0-10.0) L 01/29/19 07:00 RBC 3.51 M/mm3 (4.00-5.60) L 01/29/19 07:00 Hgb 12.3 GM/dL (11.7-16.9) 01/29/19 07:00 Hct 35.8 % (35.4-49) D 01/29/19 07:00 MCV 101.8 fl (80-96) H 01/29/19 07:00 MCH 34.9 pg (25.7-33.7) H 01/29/19 07:00 MCHC 34.3 g/dl (32.0-35.9) 01/29/19 07:00 RDW 12.6 % (11.9-15.9) 01/29/19 07:00 Plt Count 140 K/MM3 (134-434) D 01/29/19 07:00 MPV 8.1 fl (7.5-11.1) 01/29/19 07:00 Sodium 139 mmol/L (136-145) 01/29/19 07:00 Potassium 3.6 mmol/L (3.5-5.1) 01/29/19 07:00 Chloride 105 mmol/L (98-107) 01/29/19 07:00 Carbon Dioxide 25 mmol/L (21-32) 01/29/19 07:00 Anion Gap 9 MMOL/L (8-16) 01/29/19 07:00 BUN 11.5 mg/dL (7-18) 01/29/19 07:00 Creatinine 0.8 mg/dL (0.55-1.3) 01/29/19 07:00 Est GFR (CKD-EPI)AfAm 119.88 01/29/19 07:00 Est GFR (CKD-EPI)NonAf 103.43 01/29/19 07:00 Random Glucose 178 mg/dL (74-106) H 01/29/19 07:00 Fasting Glucose 119 mg/dL (74-106) H 01/30/19 07:30 Calcium 8.1 mg/dL (8.5-10.1) L 01/29/19 07:00 Total Bilirubin 0.4 mg/dL (0.2-1) 01/30/19 07:30 Direct Bilirubin 0.2 mg/dL (0.0-0.2) 01/30/19 07:30 AST 96 U/L (15-37) H 01/30/19 07:30 ALT 86 U/L (13-61) H 01/30/19 07:30 Alkaline Phosphatase 215 U/L (45-117) H 01/30/19 07:30 Total Protein 7.8 g/dl (6.4-8.2) 01/30/19 07:30 Albumin 2.7 g/dl (3.4-5.0) L 01/30/19 07:30 Total Amylase 121 U/L (25-115) H 01/30/19 07:30 Lipase 191 U/L (73-393) 01/30/19 07:30 Urine Color Yellow 01/29/19 17:10 Urine Appearance Clear 01/29/19 17:10 Urine pH 7.5 (5.0-8.0) D 01/29/19 17:10 Ur Specific [place] 1.024 (1.010-1.035) 01/29/19 17:10 Urine Protein Negative (NEGATIVE) 01/29/19 17:10 Urine Glucose (UA) Negative (NEGATIVE) 01/29/19 17:10 Urine Ketones Negative (NEGATIVE) 01/29/19 17:10 Urine Blood Negative (NEGATIVE) 01/29/19 17:10 Urine Nitrite Negative (NEGATIVE) 01/29/19 17:10 Urine Bilirubin Negative (NEGATIVE) 01/29/19 17:10 Urine Urobilinogen 2.0 mg/dL (0.2-1.0) 01/29/19 17:10 Ur Leukocyte Esterase Negative (NEGATIVE) 01/29/19 17:10 RPR Titer Nonreactive (NONREACTIVE) 01/29/19 07:00 c/o of severe abdominal pain Patient currently admitted for alcohol detox. Reports prior hx of frequent episode of pancreatitis and +HCV, c/o LUQ pain radiating to his back, reports pain 10/10, reports pain started this afternoon, has had ongoing diarrhea today , with increase cramps. Patient Aox3, restlessness, + facial grimace s1 s2 lungs clear BS x 4, + LUQ rebound tenderness skin intact, no edema or erythema abdominal pain elevated alk phos increase since admission and Elevated LFTs [facility], attempted to endorse patient without success.
[2019-01-31] MEDS ORDERED: QUEtiapine FUMARATE 100 MG TABLET (FP) PO SCH (22:00)
[2019-01-31] MEDS: THIAMINE HCL 100 MG TABLET (FP) PO SCH (23:08)
[2019-02-01] MEDS: METHOCARBAMOL 500 MG TABLET PO PRN (03:45)
[2019-02-01] MEDS ORDERED: chlordiazePOXIDE HCL 10 MG CAPSULE PO SCH (05:00)
[2019-02-01 09:27] VITALS: BP 114/82; PULSE 71; TEMP 96.7
[2019-02-01] MEDS: CALCIUM 500MG/VIT-D 200 UNITS COMBO TABLET (FP) PO SCH (10:31)
[2019-02-01] MEDS: NICOTINE 21 MG/24 HOURS TOPICAL PATCH TD SCH (10:31)
[2019-02-01] MEDS: PRENATAL VITAMINS W/ FOLIC ACID TABLET (FP) PO SCH (10:31)
[2019-02-01] MEDS: amLODIPine BESYLATE 5 MG TABLET (FP) PO SCH (10:31)
[2019-02-01] MEDS: LISINOPRIL 5 MG TABLET (FP) PO SCH (10:32)
--- NOTE | 2019-02-01 18:33 | PN ---
[facility] CIWA - CIWA Score Nausea/Vomitin-No Nausea/No Vomiting Muscle Tremors: 1-None Visible, but [place] Anxiety: 3 Agitation: 2 Paroxysmal Sweats: 2 Orientation: 0-Oriented Tacttile Disturbances: 2-Mild Itch/Numbness/Burn Auditory Disturbances: 0-None Visual Disturbances: 0-None Headache: 0-None Present CIWA-Ar Total Score: 10 S COWS - Scale Resting Pulse: 0= [place] 80 or Below Sweatin= Chills/Flushing Restless Observation: 1= Difficult to Sit Still Pupil Size: 0= Normal to Room Light Bone or Joint Aches: 1= Mild Discomfort Runny Nose/ Eye Tearin= None GI Upset > 30mins: 1= Stomach Cramp Tremor Observation of Outstretched Hands: 1= Tremor [place], Not Seen Yawning Observation: 1= 1-2x During Session Anxiety or Irritability: 2=Irritable/Anxious Goose Flesh Skin: 0=Smooth Skin COWS Score: 8 S Progress Note (SOAP) Subjective: Anxious, Tremors, Sweating. Objective: PATIENT A & O X 3, OBSERVED AMBULATING ON UNIT UNASSISTED. IN NO ACUTE DISTRESS. 02/01/19 18:34 Vital Signs Temperature 96.7 F L 02/01/19 09:25 Pulse Rate 71 02/01/19 09:25 Respiratory Rate 16 02/01/19 09:25 Blood Pressure 114/82 02/01/19 09:25 O2 Sat by Pulse Oximetry (%) Laboratory Tests 01/29/19 01/29/19 01/29/19 07:00 07:00 07:00 WBC 3.2 L RBC 3.51 L Hgb 12.3 Hct 35.8 D MCV 101.8 H MCH 34.9 H MCHC 34.3 RDW 12.6 Plt Count 140 D MPV 8.1 Sodium 139 Potassium 3.6 Chloride 105 Carbon Dioxide 25 Anion Gap 9 BUN 11.5 Creatinine 0.8 Est GFR (CKD-EPI)AfAm 119.88 Est GFR (CKD-EPI)NonAf 103.43 Random Glucose 178 H Fasting Glucose Calcium 8.1 L Total Bilirubin 0.3 Direct Bilirubin AST 111 H ALT 96 H Alkaline Phosphatase 165 H Total Protein 7.8 Albumin 2.8 L Total Amylase 116 H Lipase 181 Urine Color Urine Appearance Urine pH Ur Specific [place] Urine Protein Urine Glucose (UA) Urine Ketones Urine Blood Urine Nitrite Urine Bilirubin Urine Urobilinogen Ur Leukocyte Esterase RPR Titer Nonreactive 01/29/19 01/30/19 01/30/19 17:10 07:30 07:30 WBC RBC Hgb Hct MCV MCH MCHC RDW Plt Count MPV Sodium Potassium Chloride Carbon Dioxide Anion Gap BUN Creatinine Est GFR (CKD-EPI)AfAm Est GFR (CKD-EPI)NonAf Random Glucose Fasting Glucose 119 H Calcium Total Bilirubin 0.4 Direct Bilirubin 0.2 AST 96 H ALT 86 H Alkaline Phosphatase 215 H Total Protein 7.8 Albumin 2.7 L Total Amylase 121 H Lipase 191 Urine Color Yellow Urine Appearance Clear Urine pH 7.5 D Ur Specific [place] 1.024 Urine Protein Negative Urine Glucose (UA) Negative Urine Ketones Negative Urine Blood Negative Urine Nitrite Negative Urine Bilirubin Negative Urine Urobilinogen 2.0 Ur Leukocyte Esterase Negative RPR Titer LABS NOTED. Assessment: 02/01/19 18:34 WITHDRAWAL SYMPTOMS.
--- NOTE | 2019-02-01 18:43 | DS ---
[facility] Detox Discharge Summary Admission Date: 01/28/19 Discharge Date: 02/01/19 - History Present History: Alcohol Dependence, Cocaine Dependence Additional Comments: DESPITE EFFORTS BY HEAD CHOPPER AND BY NURSING STAFF TO ADDRESS PATIENT'S MEDICAL NEEDS / CONCERNS, PATIENT DOES NOT WISH TO REMAIN TO COMPLETE DETOX REGIMEN. RISKS OF LEAVING DETOX UNIT AGAINST MEDICAL ADVICE AND PRIOR TO COMPLETION OF DETOX REGIMEN EXPLAINED TO PATIENT. PATIENT ADVISED TO GO IMMEDIATELY TO NEAREST ER SHOULD ANY INTOLERABLE WITHDRAWAL / DETOX SYMPTOMS DEVELOP AT ANY TIME. PATIENT ADVISED TO FOLLOW-UP WITH SURGICAL CLINICAL REVIEWER AFTER DISCHARGE FROM DETOX FOR GENERAL MEDICAL ASSESSMENT AND FOR ELEVATED LIVER ENZYMES AND LOW WHITE BLOOD CELL COUNT AND FOR ELEVATED GLUCOSE LEVELS NOTED ON DETOX ADMISSION LABORATORY ASSESSMENT AND FOR HISTORY OF PANCREATITIS AND ABDOMINAL PAIN (PATIENT WAS EVALUATED AT [facility] FOR THIS WHILE ADMITTED FOR DETOX). PATIENT VERBALIZED UNDERSTANDING OF ALL RECOMMENDATIONS PRESENTED TO HIM PRIOR TO LEAVING DETOX UNIT. COPIES OF RESULTS OF ALL LABS DRAWN WHILE ADMITTED FOR DETOX GIVEN TO PATIENT AT TIME OF DISCHARGE FROM DETOX UNIT. PATIENT LEFT DETOX UNIT IN STABLE MEDICAL CONDITION. Pertinent Past History: History Of Pancreatitis, Elevated Liver Enzymes, Hyperglycemia, Leukopenia, HTN , Nicotine Dependence, Insomnia, History Of Schizophreniform Disorder. - Physical Exam Results Vital Signs: Vital Signs Temperature 96.7 F L 02/01/19 09:25 Pulse Rate 71 02/01/19 09:25 Respiratory Rate 16 02/01/19 09:25 Blood Pressure 114/82 02/01/19 09:25 O2 Sat by Pulse Oximetry (%) Pertinent Admission Physical Exam Findings: WITHDRAWAL SYMPTOMS. Laboratory Tests 01/29/19 01/29/19 01/29/19 07:00 07:00 07:00 WBC 3.2 L RBC 3.51 L Hgb 12.3 Hct 35.8 D MCV 101.8 H MCH 34.9 H MCHC 34.3 RDW 12.6 Plt Count 140 D MPV 8.1 Sodium 139 Potassium 3.6 Chloride 105 Carbon Dioxide 25 Anion Gap 9 BUN 11.5 Creatinine 0.8 Est GFR (CKD-EPI)AfAm 119.88 Est GFR (CKD-EPI)NonAf 103.43 Random Glucose 178 H Fasting Glucose Calcium 8.1 L Total Bilirubin 0.3 Direct Bilirubin AST 111 H ALT 96 H Alkaline Phosphatase 165 H Total Protein 7.8 Albumin 2.8 L Total Amylase 116 H Lipase 181 Urine Color Urine Appearance Urine pH Ur Specific [place] Urine Protein Urine Glucose (UA) Urine Ketones Urine Blood Urine Nitrite Urine Bilirubin Urine Urobilinogen Ur Leukocyte Esterase RPR Titer Nonreactive 01/29/19 01/30/19 01/30/19 17:10 07:30 07:30 WBC RBC Hgb Hct MCV MCH MCHC RDW Plt Count MPV Sodium Potassium Chloride Carbon Dioxide Anion Gap BUN Creatinine Est GFR (CKD-EPI)AfAm Est GFR (CKD-EPI)NonAf Random Glucose Fasting Glucose 119 H Calcium Total Bilirubin 0.4 Direct Bilirubin 0.2 AST 96 H ALT 86 H Alkaline Phosphatase 215 H Total Protein 7.8 Albumin 2.7 L Total Amylase 121 H Lipase 191 Urine Color Yellow Urine Appearance Clear Urine pH 7.5 D Ur Specific [place] 1.024 Urine Protein Negative Urine Glucose (UA) Negative Urine Ketones Negative Urine Blood Negative Urine Nitrite Negative Urine Bilirubin Negative Urine Urobilinogen 2.0 Ur Leukocyte Esterase Negative RPR Titer LABS NOTED. - Medication Discharge Medications: Ambulatory Orders traZODone HCL [Desyrel -] 100 mg PO HS #30 tablet 05/30/18 Amlodipine Besylate 5 mg PO DAILY 01/29/19 - Diagnosis (1) Abdominal pain Status: Acute Qualifiers: Abdominal location: periumbilical Qualified Code(s): R10.33 - Periumbilical pain (2) Alcohol dependence with uncomplicated withdrawal Status: Acute (3) Cocaine use disorder Status: Acute (4) Drug-induced mood disorder Status: Acute (5) Hyperglycemia Status: Acute (6) Leukopenia Status: Acute Qualifiers: Leukopenia type: unspecified Qualified Code(s): D72.819 - Decreased white blood cell count, unspecified (7) Elevated LFTs Status: Chronic (8) Hypertension Status: Chronic Qualifiers: Hypertension type: essential hypertension Qualified Code(s): I10 - Essential (primary) hypertension (9) Insomnia Status: Chronic Qualifiers: Insomnia type: unspecified Qualified Code(s): G47.00 - Insomnia, unspecified (10) Nicotine dependence Status: Chronic Qualifiers: Nicotine product type: cigarettes Substance use status: in withdrawal Qualified Code(s): F17.213 - Nicotine dependence, cigarettes, with withdrawal (11) Schizophreniform disorder Status: Suspected - AMA Did Patient Leave Against Medical Advice: Yes (PATIENT DID NOT EISH TO REMAIN TO COMPLETE DETOX REGIMEN.)
[2019-02-02] MEDS ORDERED: chlordiazePOXIDE HCL 10 MG CAPSULE PO ONE (05:00)
== END 2019-02-01 10:35 | disposition left against medical advice (07) | DRG 770 ==
LOC: YASAS 14:54 → Y3N 20:07
PROVIDERS: ADMIT Surgery; ATTEND Surgery
PROC: HZ2ZZZZ Detoxification Services for Substance Abuse Treatment (ICD-10-PCS; principal; 2019-01-28)
DX: F10.230 Alcohol dependence with withdrawal, uncomplicated (principal); F11.23 Opioid dependence with withdrawal; F14.20 Cocaine dependence, uncomplicated; F17.213 Nicotine dependence, cigarettes, with withdrawal; F20.81 Schizophreniform disorder; F19.24 Other psychoactive substance dependence with psychoactive substance-induced mood disorder; E83.51 Hypocalcemia; I10 Essential (primary) hypertension; D72.819 Decreased white blood cell count, unspecified; G47.00 Insomnia, unspecified; B18.2 Chronic viral hepatitis C; R10.33 Periumbilical pain; R94.5 Abnormal results of liver function studies; R73.9 Hyperglycemia, unspecified; Z87.19 Personal history of other diseases of the digestive system
CPT/HCPCS: 36415; 80053; 80076; 81003; 82150; 82947; 83690; 85027; 86593; 93005; 93010; J0735

== ENCOUNTER 2019-01-31 20:47 | Emergency (ER) | payer OTHER ==
--- NOTE | 2019-01-31 20:57 | PDOC ---
History of Present Illness - General Stated Complaint: ABDOMINAL PAIN Time Seen by Provider: 01/31/19 20:55 Past History - Past Medical History Allergies/Adverse Reactions: Allergies Allergy/AdvReac Type Severity Reaction Status Date / Time amoxicillin Allergy Severe Itching Verified 01/31/19 23:30 morphine Allergy Severe Verified 01/31/19 23:30 Home Medications: Ambulatory Orders traZODone HCL [Desyrel -] 100 mg PO HS #30 tablet 05/30/18 Amlodipine Besylate 5 mg PO DAILY 01/29/19 Anemia: No Asthma: No Cancer: No Cardiac Disorders: No CVA: No COPD: No CHF: No Dementia: No Diabetes: No GI Disorders: No Disorders: No HTN: No Hypercholesterolemia: No Kidney Stones: No Liver Disease: Yes (hepatitis c) Seizures: No Thyroid Disease: No - Surgical History Abdominal Surgery: No Appendectomy: No Cardiac Surgery: No Cholecystectomy: No Lung Surgery: No Neurologic Surgery: No Orthopedic Surgery: No - Reproductive History Testicular Surgery: No - Suicide/Smoking/Psychosocial Hx Smoking History: Current every day smoker Have you smoked in the past 12 months: Yes Number of Cigarettes Smoked Daily: 40 Cigars Per Day: 0 'Breaking Loose' booklet given: 05/29/18 Hx Alcohol Use: Yes Drug/Substance Use Hx: Yes Substance Use Type: Alcohol, Cocaine, Heroin Hx Substance Use Treatment: Yes (detox, rehab; ) ED Treatment Course - LABORATORY CBC & Chemistry Diagram: 01/31/19 22:00 01/31/19 22:00 Medical Decision Making - Medical Decision Making HPI: 53yo M with PMH of ETOH abuse, HTN, HCV, pancreatitis, longtime smoker (2ppd since age 19) presenting with abdominal pain that started this afternoon. The pain is rated 10/10 and described as "sharp," radiating to his left flank. Patient states this feels like his pancreatitis. Has had two episodes of "green " vomit with some "long streaks of blood." Patient reports fifteen formed brown bowel movements; anytime he eats, he will have a bowel movement. Has noticed some bright red streaks upon wiping and also darker red in the toilet bowl. Patient was last hospitalized in October 2016 for his pancreatitis. Followed with GI doctor in [place] when he resided there. Colonoscopy around that time showed two polyps and endoscopy was unremarkable. Does not currently follow with a GI doctor. Patient last had half a gallon of bourbon four days ago as well as a "bump" of cocaine three days ago. Reporting intermittent hematuria, which he associates with his heavy alcohol use. Also reporting fevers, chills, chest tightness, shortness of breath; is not sure if these symptoms are associated with his alcohol withdrawal. ROS: Constitutional: +fever, +chills HEENT: no throat pain, no dysphagia Cardiovascular: +chest pain, no palpitations Respiratory: no cough, +shortness of breath Gastrointestinal: +abdominal pain, +nausea Genitourinary: no dysuria, +hematuria Musculoskeletal: no myalgia, no arthralgia Skin: no rash, no itching Neurologic: no headache, no weakness PE: General: Awake, alert, and fully oriented, in the position Head: No signs of trauma Eyes: EOMI, sclera anicteric ENT: Dry mucus membranes Neck: Normal ROM, supple Lungs: Lungs clear, Normal breath sounds Cardio: Regular rhythm, S1 and S2 present Abdomen: Tender to palpation most focal to epigastrium and left periumbilical area. Soft, nondistended. +Rebound. No guarding, no masses. No CVA tenderness. Extremities: Normal range of motion, Distal pulses present SKIN: Warm, Dry, normal turgor Neurologic: Cranial nerves II through XII grossly intact. Normal speech ED Courses/MDM: DDX including but not limited to pancreatitis, pancreatic abscess, nephrolithiasis, gastritis, gastroenteritis, diverticulitis, biliary colic, acute cholecystitis Dilaudid, Zofran, Pepcid, Fluids Labs CTAP 01/31/19 22:23 EKG: rate 77, QTc 436, NSR, twi/flattened t in lead III also seen on 01/28/19 CBC WBC 4.8 K/mm3 (4.0-10.0) 01/31/19 22:00 RBC 4.02 M/mm3 (4.00-5.60) 01/31/19 22:00 Hgb 14.1 GM/dL (11.7-16.9) 01/31/19 22:00 Hct 40.5 % (35.4-49) 01/31/19 22:00 MCV 100.6 fl (80-96) H 01/31/19 22:00 MCH 35.0 pg (25.7-33.7) H 01/31/19 22:00 MCHC 34.8 g/dl (32.0-35.9) 01/31/19 22:00 RDW 12.4 % (11.9-15.9) 01/31/19 22:00 Plt Count 143 K/MM3 (134-434) 01/31/19 22:00 MPV 8.2 fl (7.5-11.1) 01/31/19 22:00 Absolute Neuts (auto) 1.8 K/mm3 (1.5-8.0) 01/31/19 22:00 Neutrophils % 37.8 % (42.8-82.8) L 01/31/19 22:00 Lymphocytes % 46.8 % (8-40) H 01/31/19 22:00 Monocytes % 10.7 % (3.8-10.2) H 01/31/19 22:00 Eosinophils % 3.8 % (0-4.5) 01/31/19 22:00 Basophils % 0.9 % (0-2.0) 01/31/19 22:00 Nucleated RBC % 0 % (0-0) 01/31/19 22:00 No leukocytosis CMP Sodium 136 mmol/L (136-145) 01/31/19 22:00 Potassium 4.3 mmol/L (3.5-5.1) 01/31/19 22:00 Chloride 102 mmol/L (98-107) 01/31/19 22:00 Carbon Dioxide 30 mmol/L (21-32) 01/31/19 22:00 Anion Gap 3 MMOL/L (8-16) L 01/31/19 22:00 BUN 14.7 mg/dL (7-18) 01/31/19 22:00 Creatinine 0.7 mg/dL (0.55-1.3) 01/31/19 22:00 Est GFR (CKD-EPI)AfAm 126.64 01/31/19 22:00 Est GFR (CKD-EPI)NonAf 109.27 01/31/19 22:00 Random Glucose 113 mg/dL (74-106) H 01/31/19 22:00 Calcium 8.9 mg/dL (8.5-10.1) 01/31/19 22:00 Total Bilirubin 0.4 mg/dL (0.2-1) 01/31/19 22:00 AST 203 U/L (15-37) H 01/31/19 22:00 ALT 146 U/L (13-61) H 01/31/19 22:00 Alkaline Phosphatase 169 U/L (45-117) H 01/31/19 22:00 Troponin I < 0.02 ng/ml (0.00-0.05) 01/31/19 22:00 Total Protein 8.3 g/dl (6.4-8.2) H 01/31/19 22:00 Albumin 2.9 g/dl (3.4-5.0) L 01/31/19 22:00 Lipase 229 U/L (73-393) 01/31/19 22:00 Electrolytes unremarkable Cr normal Lipase WNL Elevated AST and ALT Tpn undetectable Pending UA Plan to send patient to CT scan 01/31/19 23:[address] Patient signed out to Dr. Wright and night team 02/01/19 00:19 *DC/Admit/Observation/Transfer Diagnosis at time of Disposition: Abdominal pain Qualifiers: Abdominal location: periumbilical Qualified Code(s): R10.33 - Periumbilical pain - Discharge Dispostion Disposition: I.P. ALCOHOL/SUBS ABUSE REHAB Condition at time of disposition: Stable - Referrals Referrals: Nader Link MD [Staff Physician] - Evelio Cruz [Primary Care Provider] - - Patient Instructions Additional Instructions: You were seen in the ED for abdominal pain. Your work up was negative except for elevated liver enzymes. Please return for new or worsening symptoms including but not limited to; worsening abdominal pain, blood per rectum, chest pain. You have been provided with a referral to Dr. Link (GI) for further management of your GI symptoms and elevated transaminases, please schedule an appointment for after you leave [facility]. - Post Discharge Activity
[2019-01-31] MEDS ORDERED: ONDANSETRON 4 MG/2 ML VIAL IVPUSH ONE (21:30)
[2019-01-31] MEDS ORDERED: FAMOTIDINE 20 MG/50 ML IVPB 20 MG/50 ML MG IVPB ONE ×2 (21:30→23:15)
[2019-01-31] MEDS ORDERED: SODIUM CHLORIDE 1,000 ML IV STA (21:30)
[2019-01-31 22:11] LABS: BASO % 0.9 % (0-2.0); EOS % 3.8 % (0-4.5); HEMATOCRIT 40.5 % (35.4-49); HEMOGLOBIN 14.1 GM/dL (11.7-16.9); LYMPH % 46.8 % (8-40); MCHC 34.8 g/dl (32.0-35.9); MEAN CELL VOLUME 100.6 fl (80-96); MEAN PLT VOLUME 8.2 fl (7.5-11.1); MONO % 10.7 % (3.8-10.2); NEUT % 37.8 % (42.8-82.8); PLATELET COUNT 143 K/MM3 (134-434); RBC 4.02 M/mm3 (4.00-5.60); RDW 12.4 % (11.9-15.9); WHITE BLOOD COUNT 4.8 K/mm3 (4.0-10.0)
[2019-01-31] MEDS ORDERED: HYDROmorphone HCL CARPU-JECT 2 MG/1 ML DISP.SYRIN IVPUSH ONE (22:16)
--- NOTE | 2019-01-31 22:23 | PDOC ---
Documentation entered by Iqra De Leon SCRIBE, acting as scribe for Shannon Guzman DO. Shannon Guzman, : This documentation has been prepared by the Haley randle Xhesika, SCRIBE, under my direction and personally reviewed by me in its entirety. I confirm that the documentation accurately reflects all work, treatment, procedures, and medical decision making performed by me. Attending Attestation - Resident Resident Name: Yanique Sternth - ED Attending Attestation I have performed the following: I have examined & evaluated the patient, The case was reviewed & discussed with the resident, I agree w/resident's findings & plan, Exceptions are as noted - HPI HPI: 01/31/19 22:06 The patient is a 53 year old male with a significant PMH of frequent pancreatitis and hepatitis c who presents to the emergency department from [facility] via EMS with with severe LUQ and LLQ abdominal pain. Patient states he endorses nausea with bilious, non bloody vomiting. The patient denies chest pain, shortness of breath, headache and dizziness. Denies fever, chills, cough, diarrhea and constipation. Denies dysuria, frequency, urgency and hematuria. Allergies: amoxicillin, morphine Social history: Current everyday smoker. Alcohol use. Cocaine, Heroin use. PCP: Evelio Nunez - Physicial Exam PE: 01/31/19 22:07 GENERAL: Awake, alert, and fully oriented, in no acute distress HEAD: No signs of trauma EYES: PERRLA, EOMI, sclera anicteric, conjunctiva clear ENT: Auricles normal inspection, hearing grossly normal, nares patent, oropharynx clear without exudates. Moist mucosa NECK: Normal ROM, supple, no lymphadenopathy, JVD, or masses LUNGS: Breath sounds equal, clear to auscultation bilaterally. No wheezes, and no crackles HEART: Regular rate and rhythm, normal S1 and S2, no murmurs, rubs or gallops ABDOMEN: (+) LUQ pain. (+) LLQ pain. (+) epigastric tenderness above suprabubic region. Soft, normoactive bowel sounds. No guarding, no rebound. No masses EXTREMITIES: Normal range of motion, no edema. No clubbing or cyanosis. No cords, erythema, or tenderness NEUROLOGICAL: Cranial nerves II through XII grossly intact. SKIN: Warm, Dry, normal turgor, no rashes or lesions noted. - Medical Decision Making 01/31/19 22:20 I, Dr. Shannon Guzman, DO, attest that this document has been prepared under my direction and personally reviewed by me in its entirety. I further attest, that it accurately reflects all work, treatment, procedures and medical decision -making performed by me. 01/31/19 22:20 a/p: 53yo male with hx of htn, hcv, pancreatitis, sent from [facility] for eval of abd pain and n/v -states bilious vomiting today -no blood -normal bm -pt states he follows with docs in [place] for pancreatitis -pt states worsening abd pain today - all over L side, no cva ttp, no dysuria -pt appears uncomfortable -will send labs, lipase, ct abd/pelvis -ivf hydration, pepcid, zofran, dilaudid x 1 dose -will monitor and reassess 01/31/19 23:[address] imaging 02/01/19 01:29 ct without acute findings pt states feeling better pt with elevated lft, will need gi eval as outpt pt stable for dc back to detox to finish etoh detox 02/01/19 01:48 pt endorsed back to [facility] who accepts pt to detox stable for dc to [facility] Heart Score/ECG Review - ECG Intrepretation Comment:: 01/31/19 22:22 sinus at 77, q waves inferiorly, nl axis, no acute st/t wave findings
[2019-01-31 22:52] LABS: ALBUMIN 2.9 g/dl (3.4-5.0); BILIRUBIN,TOTAL 0.4 mg/dL (0.2-1); BLOOD UREA NITROGEN 14.7 mg/dL (7-18); CALCIUM 8.9 mg/dL (8.5-10.1); CREATININE 0.7 mg/dL (0.55-1.3); POTASSIUM 4.3 mmol/L (3.5-5.1); TOT PROT 8.3 g/dl (6.4-8.2)
[2019-01-31 23:05] LABS: LIPASE 229 U/L (73-393)
[2019-01-31] MEDS ORDERED: ONDANSETRON 4 MG/2 ML VIAL ONE (23:14)
[2019-01-31] MEDS ORDERED: HYDROmorphone HCl 2 MG/ML VIAL ONE (23:14)
[2019-01-31 23:40] VITALS: TEMP 99; BMI 27.5
--- NOTE | 2019-02-01 00:46 | PDOC ---
*Physical Exam - Vital Signs Last Vital Signs Temp Pulse Resp BP Pulse Ox 99.0 F 82 17 128/88 100 01/31/19 20:55 01/31/19 20:55 01/31/19 20:55 01/31/19 20:55 01/31/19 20:55 ED Treatment Course - LABORATORY CBC & Chemistry Diagram: 01/31/19 22:00 01/31/19 22:00 - ADDITIONAL ORDERS Additional order review: Laboratory Results 01/31/19 01/31/19 01/31/19 22:30 22:00 22:00 Sodium Potassium Chloride Carbon Dioxide Anion Gap BUN Creatinine Est GFR (CKD-EPI)AfAm Est GFR (CKD-EPI)NonAf Random Glucose Calcium Total Bilirubin AST ALT Alkaline Phosphatase Troponin I < 0.02 Total Protein Albumin Lipase 229 Cancelled Stool Occult Blood Negative 01/31/19 22:00 Sodium 136 Potassium 4.3 Chloride 102 Carbon Dioxide 30 Anion Gap 3 L BUN 14.7 Creatinine 0.7 Est GFR (CKD-EPI)AfAm 126.64 Est GFR (CKD-EPI)NonAf 109.27 Random Glucose 113 H Calcium 8.9 Total Bilirubin 0.4 AST 203 H ALT 146 H Alkaline Phosphatase 169 H Troponin I Total Protein 8.3 H Albumin 2.9 L Lipase Stool Occult Blood 01/31/19 22:00 RBC 4.02 MCV 100.6 H MCHC 34.8 RDW 12.4 MPV 8.2 Neutrophils % 37.8 L Lymphocytes % 46.8 H Monocytes % 10.7 H Eosinophils % 3.8 Basophils % 0.9 - Medications Given in the ED: ED Medications Discontinued Medications Generic Name Dose Route Start Last Admin Trade Name Aubrey PRN Reason Stop Dose Admin Hydromorphone HCl 0.5 mg 01/31/19 22:16 01/31/19 23:26 Dilaudid Injection - IVPUSH 01/31/19 22:17 0.5 mg ONCE ONE Administration Famotidine/Sodium Chloride 20 mg in 50 mls @ 100 mls/hr 01/31/19 21:30 23:26 Pepcid 20 Mg Premixed Ivpb - IVPB 01/31/19 21:59 100 mls/hr ONCE ONE Administration Sodium Chloride 1,000 mls @ 1,000 mls/hr 01/31/19 21:30 01/31/19 23:26 Normal Saline - IV 01/31/19 22:29 1,000 mls/hr ASDIR STA Administration Ondansetron HCl 4 mg 01/31/19 21:30 01/31/19 23:26 Zofran Injection IVPUSH 01/31/19 21:31 4 mg ONCE ONE Administration Medical Decision Making - Medical Decision Making 02/01/19 00:44 -Sign out received from Dr. Stern. -Pending CTAP -s/p 0.5 dilaudid -s/p Pepcid, Zofran, IVF -Tranaminitis -Consider PO Challenge -Has bed at [facility] 02/01/19 01:04 -CTAP without evidence of acute pancreatic pathology, unremarkable. -Will reevaluate patient for dispo 02/01/19 01:49 -Pt endorsed back to [facility] *DC/Admit/Observation/Transfer Diagnosis at time of Disposition: Abdominal pain Qualifiers: Abdominal location: periumbilical Qualified Code(s): R10.33 - Periumbilical pain - Discharge Dispostion Disposition: LONG TERM FACILITY Condition at time of disposition: Stable Decision to Admit order: No - Referrals Referrals: Evelio Cruz [Primary Care Provider] - Nader Link MD [Staff Physician] - - Patient Instructions Additional Instructions: You were seen in the ED for abdominal pain. Your work up was negative except for elevated liver enzymes. Please return for new or worsening symptoms including but not limited to; worsening abdominal pain, blood per rectum, chest pain. You have been provided with a referral to Dr. Link (GI) for further management of your GI symptoms and elevated transaminases, please schedule an appointment for after you leave [facility]. - Post Discharge Activity
[2019-02-01] MEDS ORDERED: SODIUM CHLORIDE 0.9% 1000 ML INFUS.BAG IV ONE (02:03)
[2019-02-01 02:44] VITALS: BP 101/76; PULSE 69
[2019-02-01 02:49] LABS: PH,URINE 5.5 (5.0-8.0); URINE APPEARANCE CLEAR; URINE BILIRUBIN NEGATIVE (NEGATIVE); URINE COLOR YELLOW; URINE GLUCOSE (UA) NEGATIVE (NEGATIVE); URINE KETONE NEGATIVE (NEGATIVE); URINE LEUK ESTERASE NEGATIVE (NEGATIVE); URINE NITRITE NEGATIVE (NEGATIVE); URINE PROTEIN NEGATIVE (NEGATIVE)
--- NOTE | 2019-02-01 14:06 | EKG ---
Test Reason : Blood Pressure : / mmHG Vent. Rate : 077 BPM Atrial Rate : 077 BPM P-R Int : 176 ms QRS Dur : 090 ms QT Int : 386 ms P-R-T Axes : 003 -20 -16 degrees QTc Int : 436 ms NORMAL SINUS RHYTHM INFERIOR INFARCT , AGE UNDETERMINED INCOMPLETE RBBB ABNORMAL ECG WHEN COMPARED WITH ECG OF 28-JAN-2019 20:21, INFERIOR INFARCT IS NOW PRESENT Confirmed by ARMAND ARGUETA MD ([id number]) on 02/01/2019 2:05:53 PM Referred By: Confirmed By:ARMAND ARGUETA MD
== END 2019-02-01 03:10 | disposition other institution (70) ==
LOC: JER 20:47
PROC: 3E033GC Introduction of Other Therapeutic Substance into Peripheral Vein, Percutaneous Approach (ICD-10-PCS; principal; 2019-01-31)
PROC: 3E033GC Introduction of Other Therapeutic Substance into Peripheral Vein, Percutaneous Approach (ICD-10-PCS; 2019-01-31)
PROC: 3E033NZ Introduction of Analgesics, Hypnotics, Sedatives into Peripheral Vein, Percutaneous Approach (ICD-10-PCS; 2019-01-31)
DX: R10.33 Periumbilical pain (principal); I10 Essential (primary) hypertension; B18.2 Chronic viral hepatitis C; F10.10 Alcohol abuse, uncomplicated; F17.210 Nicotine dependence, cigarettes, uncomplicated; Z87.19 Personal history of other diseases of the digestive system
CPT/HCPCS: 36415; 71045-TC-FY; 74177-TC; 80053; 81003; 82272; 83690; 84484; 85025; 87086; 93005; 93010; 99283-25; J7030

== ENCOUNTER 2019-02-05 17:25 | Inpatient (IN) | payer OTHER ==
[2019-02-05 18:56] VITALS: BMI 28.5
--- NOTE | 2019-02-05 21:12 | HP ---
"COWS - Scale Resting Pulse: 1= [place] 81-100 Sweatin=Flushed/Facial Moisture Restless Observation: 1= Difficult to Sit Still Pupil Size: 0= Normal to Room Light (Pupils = 2 mm) Bone or Joint Aches: 1= Mild Discomfort Runny Nose/ Eye Tearin= None GI Upset > 30mins: 0= None Tremor Observation: 4= Gross Tremor/Twitching Yawning Observation: 0= None Anxiety or Irritability: 2=Irritable/Anxious Goose Flesh Skin: 0=Smooth Skin COWS Score: 11 CIWA Score Nausea/Vomitin-No Nausea/No Vomiting Muscle Tremors: 4-Moderate,w/Arms Extend Anxiety: 1-Mildly Anxious Agitation: 1-Slight > Activity Paroxysmal Sweats: 3 (Increased facial mositure) Orientation: 3-Disoriented Date>2 days Tacttile Disturbances: 0-None Auditory Disturbances: 0-None Visual Disturbances: 0-None Headache: 0-None Present CIWA-Ar Total Score: 12 - Admission Criteria OASAS Guidelines: Admission for Medically Managed Detox: Requires at least one of the followin. CIWA greater than 12 2. Seizures within the past 24 hours 3. Delirium tremens within the past 24 hours 4. Hallucinations within the past 24 hours 5. Acute intervention needed for co occurring medical disorder 6. Acute intervention needed for co occurring psychiatric disorder 7. Severe withdrawal that cannot be handled at a lower level of care (continued vomiting, continued diarrhea, abnormal vital signs) requiring intravenous medication and/or fluids 8. Patient presents the following: CIWA greater than 12 Admission Criteria Met: Admission criteria met Admission ROS S - HPI Chief Complaint: I'm withdrawing. My (L) leg hurts so bad. Allergies/Adverse Reactions: Allergies Allergy/AdvReac Type Severity Reaction Status Date / Time amoxicillin Allergy Severe Itching Verified 02/05/19 18:44 morphine Allergy Severe Verified 02/05/19 18:44 History of Present Illness: 53 yo patient presents w/ unsteady gait, slurred speech. Discharged from [facility] detox on 02/01/19. Relapsed the same day of discharge. FANNY= 0.160; Utox: + MOP/BZO/FEN. Alcohol use began at age 11. Normally drinks 1/5th daily. Heroin use began at age 16. Uses about 1x/week. Currently sniffs. Has been using for past 3 days. Cocaine use began at age 17. Last used about 9 days ago. Nicotine use began at age 19. Current use 2 PPD. Hx: multiple blackouts - last 1 month ago. Hx: Overdose 2 months ago. No Narcan Kit Denies hx seizures. PMHx: HTN; Hepatitis C; Pancreatitis; (L) leg pain Hx Abnormal EKG MHHx: Depression. Denies thoughts of harming self or others. Search Terms: Heron Lindsey, 1965 Search Date: 02/05/2019 10:06:00 PM The Drug Utilization Report below displays all of the controlled substance prescriptions, if any, that your patient has filled in the last twelve months. The information displayed on this report is compiled from pharmacy submissions to the Department, and accurately reflects the information as submitted by the pharmacies. This report was requested by: Diane Ramon | Reference #: [id number] There are no results for the search terms that you entered. Exam Limitations: Intoxication - Ebola screening Have you traveled outside of the country in the last 21 days: No Have you had contact with anyone from an Ebola affected area: No Have you been sick,other than usual withdrawal symptoms: No (No recent exposure to measles) Do you have a fever: No - Review of Systems Constitutional: Diaphoresis, Changes in sleep EENT: reports: No Symptoms Reported Respiratory: reports: No Symptoms reported Cardiac: reports: Other (Abnormal EKG) GI: reports: Blood Streaked Bowels, Constipated (No BM x 4 days.), Abdominal cramping : reports: No Symptoms Reported Musculoskeletal: reports: Back Pain, Muscle Pain (Cramps in feet and legs), Other (Cramping (L) leg x 1 day) Integumentary: reports: No Symptoms Reported Neuro: reports: Numbness (toes) Endocrine: reports: Increased Thirst Hematology: reports: No Symptoms Reported Psychiatric: reports: Agitated, Anxious, Depressed, Disorientated Patient History - Patient Medical History Hx Anemia: No Hx Asthma: No Hx Chronic Obstructive Pulmonary Disease (COPD): No Hx Cancer: No Hx Cardiac Disorders: No Hx Congestive Heart Failure: No Hx Hypertension: No Hx Hypercholesterolemia: No Hx Pacemaker: No HX Cerebrovascular Accident: No Hx Seizures: No Hx Dementia: No Hx Diabetes: No Hx Gastrointestinal Disorders: No Hx Liver Disease: Yes (hepatitis c) Hx Genitourinary Disorders: No Hx Sexually Transmitted Disorders: No Hx Renal Disease (ESRD): No Hx Thyroid Disease: No Hx Human Immunodeficiency Virus (HIV): No (last 03/20 negative) Hx Hepatitis C: Yes (follow up with pmd no treatment) Hx Depression: Yes Hx Suicide Attempt: No Hx Bipolar Disorder: No Hx Schizophrenia: No - Patient Surgical History Past Surgical History: No Hx Neurologic Surgery: No Hx Cataract Extraction: No Hx Cardiac Surgery: No Hx Lung Surgery: No Hx Breast Surgery: No Hx Breast Biopsy: No Hx Abdominal Surgery: No Hx Appendectomy: No Hx Cholecystectomy: No Hx Genitourinary Surgery: No Hx Section: No Hx Orthopedic Surgery: No Anesthesia Reaction: No - PPD History Previous Implant?: Yes Documented Results: Negative w/proof Implanted On Prior R Admission?: Yes Date: 05/19/18 Results: 0 MM PPD to be Administered?: No - Smoking Cessation Smoking history: Current every day smoker Have you smoked in the past 12 months: Yes Aproximately how many cigarettes per day: 40 Cigars Per Day: 0 Hx Chewing Tobacco Use: No Initiated information on smoking cessation: Yes 'Breaking Loose' booklet given: 02/05/19 - Substance & Tx. History Hx Alcohol Use: Yes Hx Substance Use: Yes Substance Use Type: Alcohol, Cocaine, Heroin Hx Substance Use Treatment: Yes (detox, rehab) - Substances abused Heroin Substance route: Injection Frequency: Daily Amount used: 4 bags Age of first use: 16 Date of last use: 02/05/19 Alcohol Substance route: Oral Frequency: Daily Amount used: liqour- 2 pints Age of first use: 11 Date of last use: 02/05/19 Cocaine Substance route: Injection Frequency: Daily Amount used: 1gm Age of first use: 17 Date of last use: 01/27/19 Family Disease History - Family Disease History Family Disease History: Diabetes: Mother Admission Physical Exam S - Vital Signs Vital Signs: Vital Signs - 24 hr 02/05/19 02/05/19 18:48 19:13 Temperature 96.6 F L 96.6 F L Pulse Rate 90 90 Respiratory 20 20 Rate Blood Pressure 142/92 142/92 - Physical General Appearance: Yes: Nourished, Mild Distress, Tremorous, Irritable, Sweating (Increased facial moisture), Anxious HEENTM: Yes: Hearing grossly Normal, Normocephalic, JOLYNN (Pupils = 2 mm), Pharynx Normal Respiratory: Yes: Lungs Clear, Normal Breath Sounds, No Respiratory Distress Neck: Yes: No masses,lesions,Nodules, Supple Breast: Yes: Breast Exam Deferred Cardiology: Yes: Regular Rhythm, Regular Rate Abdominal: Yes: Increased Bowel Sounds, Protuberent, Distended, Tenderness ( Generalized abdominal tenderness w/ rebound tenderness.) Genitourinary: Yes: Within Normal Limits Back: Yes: Normal Inspection Musculoskeletal: Yes: full range of Motion Extremities: Yes: Normal Capillary Refill, Tremors Neurological: Yes: Fully Oriented, Alert, Motor Strength 5/5, Depressed Affect ( Denies thoughts of harming self or others) Integumentary: Yes: Normal Color, Warm Lymphatic: Yes: Within Normal Limits - Diagnostic (1) Alcohol dependence with uncomplicated withdrawal Current Visit: Yes Status: Acute (2) Hypertension Current Visit: Yes Status: Chronic Qualifiers: Hypertension type: essential hypertension Qualified Code(s): I10 - Essential (primary) hypertension (3) Nicotine dependence Current Visit: Yes Status: Chronic Qualifiers: Nicotine product type: cigarettes Substance use status: in withdrawal Qualified Code(s): F17.213 - Nicotine dependence, cigarettes, with withdrawal (4) Alcohol intoxication Current Visit: Yes Status: Acute Qualifiers: Complication of substance-induced condition: uncomplicated Qualified Code(s ): F10.920 - Alcohol use, unspecified with intoxication, uncomplicated (5) Constipation Current Visit: Yes Status: Chronic Qualifiers: Constipation type: unspecified constipation type Qualified Code(s): K59.00 - Constipation, unspecified (6) History of abnormal electrocardiogram Current Visit: Yes Status: Chronic (7) Heroin use disorder, mild Current Visit: Yes Status: Chronic Cleared for Admission S - Detox or Rehab [facility] Level of Care: Medically Managed Detox Regimen/Protocol: Librium Claeared for Rehab Admission: No Breathalyzer - Breathalyzer Breathalyzer: 0.160 Urine Drug Screen - Test Device Lot number: [id number] Expiration date: 10/30/20 - Control Is test valid?: Yes - Results Drug screen NEGATIVE: No Urine drug screen results: FEN-Fentanyl, MOP-Opiates, BZO-Benzodiazepines Inpatient Rehab Admission - Rehab Decision to Admit Inpatient rehab admission?: No"
[2019-02-05] MEDS ORDERED: MENTHOL/PHENOL 1 EACH UD MM PRN (22:24)
[2019-02-05] MEDS ORDERED: MAGNESIUM CITRATE 300 ML BOTTLE PO PRN (22:24)
[2019-02-05] MEDS ORDERED: MAG HYDROX/AL HYDROX/SIMETH 30 ML UNIT-DOSE CUP PO PRN (22:24)
[2019-02-05] MEDS ORDERED: BISMUTH SUBSALICYLATE 524 MG/30 ML UD PO PRN (22:24)
[2019-02-05] MEDS ORDERED: ACETAMINOPHEN 325 MG TABLET (FP) PO PRN ×2 (22:24)
[2019-02-05] MEDS ORDERED: MAGNESIUM HYDROX 2400MG/30ML ORAL SUSPENSION 30 ML CUP PO PRN (22:24)
[2019-02-05] MEDS ORDERED: POLYETHYLENE GLYCOL 3350 119 GM BTL PO ONE (22:26)
[2019-02-05] MEDS: MELATONIN 5 MG TABLETS PO PRN (23:39)
[2019-02-06] MEDS ORDERED: chlordiazePOXIDE HCL 25 MG CAPSULE PO PRN (00:36)
[2019-02-06] MEDS ORDERED: POLYETHYLENE GLYCOL 3350 119 GM BTL PO ONE (06:00)
[2019-02-06] MEDS: chlordiazePOXIDE HCL 25 MG CAPSULE PO SCH ×4 (06:03→22:09)
[2019-02-06] MEDS ORDERED: TRIMETHOBENZAMIDE HCL 300 MG CAPSULE PO PRN (09:01)
[2019-02-06] MEDS ORDERED: METHADONE HCL 10 MG TABLET (FOR DETOX USE ONLY) PO ONE (09:15)
[2019-02-06] MEDS ORDERED: amLODIPine BESYLATE 5 MG TABLET (FP) PO SCH (10:00)
[2019-02-06] MEDS: NICOTINE 21 MG/24 HOURS TOPICAL PATCH TD SCH (10:23)
[2019-02-06] MEDS: PRENATAL VITAMINS W/ FOLIC ACID TABLET (FP) PO SCH (10:24)
[2019-02-06 11:20] LABS: ALBUMIN 2.6 g/dl (3.4-5.0); BILIRUBIN,TOTAL 0.6 mg/dL (0.2-1); BLOOD UREA NITROGEN 11.6 mg/dL (7-18); CALCIUM 8.3 mg/dL (8.5-10.1); CREATININE 0.7 mg/dL (0.55-1.3); POTASSIUM 3.7 mmol/L (3.5-5.1); TOT PROT 7.6 g/dl (6.4-8.2)
[2019-02-06 11:52] LABS: HEMATOCRIT 36.3 % (35.4-49); HEMOGLOBIN 12.3 GM/dL (11.7-16.9); MCH 34.6 pg (25.7-33.7); MCHC 33.8 g/dl (32.0-35.9); MEAN CELL VOLUME 102.2 fl (80-96); MEAN PLT VOLUME 8.3 fl (7.5-11.1); PLATELET COUNT 143 K/MM3 (134-434); RBC 3.55 M/mm3 (4.00-5.60); RDW 12.7 % (11.9-15.9); WHITE BLOOD COUNT 3.1 K/mm3 (4.0-10.0)
--- NOTE | 2019-02-06 13:22 | PN ---
[facility] CIWA - CIWA Score Nausea/Vomitin-No Nausea/No Vomiting Muscle Tremors: 3 Anxiety: 3 Agitation: 3 Paroxysmal Sweats: 3 Orientation: 0-Oriented Tacttile Disturbances: 0-None Auditory Disturbances: 0-None Visual Disturbances: 0-None Headache: 0-None Present CIWA-Ar Total Score: 12 [facility] COWS - Scale Resting Pulse: 1= [place] 81-100 Sweatin= Chills/Flushing Restless Observation: 1= Difficult to Sit Still Pupil Size: 0= Normal to Room Light Bone or Joint Aches: 2= Severe Diffuse Aches Runny Nose/ Eye Tearin= Runny Nose/Eyes GI Upset > 30mins: 0= None Tremor Observation of Outstretched Hands: 2= Slight Tremor Visible Yawning Observation: 1= 1-2x During Session Anxiety or Irritability: 2=Irritable/Anxious Goose Flesh Skin: 0=Smooth Skin COWS Score: 12 S Progress Note (SOAP) Subjective: shakes sweats body aches interrupted sleep running nose anxiety irritable why am i not getting methadone? Objective: 02/06/19 13:20 Vital Signs Temperature 97.7 F 02/06/19 09:33 Pulse Rate 93 H 02/06/19 09:33 Respiratory Rate 18 02/06/19 09:33 Blood Pressure 159/103 H 02/06/19 09:33 O2 Sat by Pulse Oximetry (%) Laboratory Tests 02/06/19 02/06/19 07:00 07:00 WBC 3.1 L RBC 3.55 L Hgb 12.3 Hct 36.3 MCV 102.2 H MCH 34.6 H MCHC 33.8 RDW 12.7 Plt Count 143 MPV 8.3 Sodium 139 Potassium 3.7 Chloride 103 Carbon Dioxide 29 Anion Gap 7 L BUN 11.6 Creatinine 0.7 Est GFR (CKD-EPI)AfAm 126.64 Est GFR (CKD-EPI)NonAf 109.27 Random Glucose 149 H Calcium 8.3 L Total Bilirubin 0.6 AST 129 H ALT 108 H Alkaline Phosphatase 137 H Total Protein 7.6 Albumin 2.6 L labs noted will repeat labs aaox3 ambulating no acute distress tylenol discontinue Assessment: 02/06/19 13:21 withdrawals noted Plan: continue detox adding methadone to his regimen increase fluids acitifed prn [place] repeat labs
[2019-02-06] MEDS ORDERED: cloNIDine HCL 0.1 MG TABLET PO PRN (17:36)
[2019-02-06] MEDS: amLODIPine BESYLATE 10 MG TABLET (FP) PO SCH (18:36)
[2019-02-06] MEDS: CYCLOBENZAPRINE HCL 10 MG TABLET (FP) PO PRN (22:09)
[2019-02-06] MEDS: diphenhydrAMINE HCL 25 MG CAPSULE (FP) PO PRN (22:09)
[2019-02-06] MEDS: THIAMINE HCL 100 MG TABLET (FP) PO SCH (22:09)
[2019-02-06] MEDS: MELATONIN 5 MG TABLETS PO PRN (22:09)
[2019-02-06] MEDS: NICOTINE POLACRILEX 4 MG GUM BUC PRN (22:13)
[2019-02-07] MEDS: chlordiazePOXIDE HCL 25 MG CAPSULE PO SCH ×4 (05:35→22:45)
[2019-02-07] MEDS: diphenhydrAMINE HCL 25 MG CAPSULE (FP) PO PRN ×2 (05:37→16:25)
[2019-02-07] MEDS ORDERED: METHADONE HCL 5 MG TABLET (FOR DETOX USE ONLY) PO ONE (10:00)
[2019-02-07] MEDS: PRENATAL VITAMINS W/ FOLIC ACID TABLET (FP) PO SCH (10:21)
[2019-02-07] MEDS: amLODIPine BESYLATE 10 MG TABLET (FP) PO SCH (10:21)
[2019-02-07] MEDS: NICOTINE 21 MG/24 HOURS TOPICAL PATCH TD SCH (10:21)
[2019-02-07 10:39] LABS: BASO % 0.7 % (0-2.0); EOS % 4.8 % (0-4.5); HEMATOCRIT 36.1 % (35.4-49); HEMOGLOBIN 12.4 GM/dL (11.7-16.9); LYMPH % 62.9 % (8-40); MCHC 34.4 g/dl (32.0-35.9); MEAN CELL VOLUME 101.7 fl (80-96); MEAN PLT VOLUME 8.2 fl (7.5-11.1); MONO % 8.1 % (3.8-10.2); NEUT % 23.5 % (42.8-82.8); PLATELET COUNT 141 K/MM3 (134-434); RBC 3.55 M/mm3 (4.00-5.60); RDW 12.3 % (11.9-15.9); WHITE BLOOD COUNT 3.3 K/mm3 (4.0-10.0)
[2019-02-07 10:44] LABS: ALBUMIN 2.7 g/dl (3.4-5.0); BILIRUBIN,TOTAL 0.8 mg/dL (0.2-1); BLOOD UREA NITROGEN 11.4 mg/dL (7-18); CALCIUM 8.8 mg/dL (8.5-10.1); CREATININE 0.8 mg/dL (0.55-1.3); POTASSIUM 3.8 mmol/L (3.5-5.1); TOT PROT 7.5 g/dl (6.4-8.2)
[2019-02-07 12:53] LABS: ANISOCYTOSIS 1+; MACROCYTOSIS 1+; PLATELET ESTIMATE DECREASED
[2019-02-07] MEDS: NICOTINE POLACRILEX 4 MG GUM BUC PRN (13:30)
[2019-02-07] MEDS ORDERED: NAPHAZOLINE/PHENIRAMINE OPHTHALMIC 15 ML BOTTLE OU PRN (15:03)
[2019-02-07] MEDS ORDERED: SIMETHICONE 80 MG TAB.CHEW (FP) PO PRN (15:05)
--- NOTE | 2019-02-07 16:11 | PN ---
[facility] CIWA - CIWA Score Nausea/Vomitin-No Nausea/No Vomiting Muscle Tremors: None Anxiety: 3 Agitation: 1-Slight > Activity Paroxysmal Sweats: 3 Orientation: 0-Oriented Tacttile Disturbances: 2-Mild Itch/Numbness/Burn Auditory Disturbances: 0-None Visual Disturbances: 2-Mild Sensitivity Headache: 0-None Present CIWA-Ar Total Score: 11 S COWS - Scale Resting Pulse: 1= [place] 81-100 Sweatin= Chills/Flushing Restless Observation: 1= Difficult to Sit Still Pupil Size: 0= Normal to Room Light Bone or Joint Aches: 2= Severe Diffuse Aches Runny Nose/ Eye Tearin= None GI Upset > 30mins: 0= None Tremor Observation of Outstretched Hands: 0= None Yawning Observation: 1= 1-2x During Session Anxiety or Irritability: 2=Irritable/Anxious Goose Flesh Skin: 3=Piloerection COWS Score: 11 [facility] Progress Note (SOAP) Subjective: Anxious, Tremors, Body Aches, Fatigue. Objective: PATIENT A & O X 3, OBSERVED AMBULATING ON UNIT UNASSISTED. IN NO ACUTE DISTRESS. 02/07/19 16:12 Vital Signs Temperature 98.1 F 02/07/19 13:32 Pulse Rate 77 02/07/19 13:32 Respiratory Rate 17 02/07/19 13:32 Blood Pressure 131/84 02/07/19 13:32 O2 Sat by Pulse Oximetry (%) Laboratory Tests 02/06/19 02/06/19 02/06/19 07:00 07:00 07:00 WBC 3.1 L RBC 3.55 L Hgb 12.3 Hct 36.3 MCV 102.2 H MCH 34.6 H MCHC 33.8 RDW 12.7 Plt Count 143 MPV 8.3 Absolute Neuts (auto) Neutrophils % Neutrophils % (Manual) Band Neutrophils % Lymphocytes % Lymphocytes % (Manual) Monocytes % Monocytes % (Manual) Eosinophils % Eosinophils % (Manual) Basophils % Basophils % (Manual) Myelocytes % (Man) Promyelocytes % (Man) Blast Cells % (Manual) Nucleated RBC % Metamyelocytes Hypochromia Platelet Estimate Polychromasia Poikilocytosis Anisocytosis Microcytosis Macrocytosis Sodium 139 Potassium 3.7 Chloride 103 Carbon Dioxide 29 Anion Gap 7 L BUN 11.6 Creatinine 0.7 Est GFR (CKD-EPI)AfAm 126.64 Est GFR (CKD-EPI)NonAf 109.27 Random Glucose 149 H Calcium 8.3 L Total Bilirubin 0.6 AST 129 H ALT 108 H Alkaline Phosphatase 137 H Total Protein 7.6 Albumin 2.6 L RPR Titer Nonreactive 02/07/19 02/07/19 07:00 07:00 WBC 3.3 L RBC 3.55 L Hgb 12.4 Hct 36.1 MCV 101.7 H MCH 35.0 H MCHC 34.4 RDW 12.3 Plt Count 141 MPV 8.2 Absolute Neuts (auto) 0.8 L Neutrophils % 23.5 L D Neutrophils % (Manual) 29.2 L Band Neutrophils % 0.0 Lymphocytes % 62.9 H D Lymphocytes % (Manual) 56.3 H Monocytes % 8.1 Monocytes % (Manual) 8 Eosinophils % 4.8 H Eosinophils % (Manual) 4.2 Basophils % 0.7 Basophils % (Manual) 1.0 Myelocytes % (Man) 0 Promyelocytes % (Man) 0 Blast Cells % (Manual) 0 Nucleated RBC % 0 Metamyelocytes 1 Hypochromia 0 Platelet Estimate Decreased Polychromasia 0 Poikilocytosis 0 Anisocytosis 1+ Microcytosis 0 Macrocytosis 1+ Sodium 137 Potassium 3.8 Chloride 100 Carbon Dioxide 34 H Anion Gap 3 L BUN 11.4 Creatinine 0.8 Est GFR (CKD-EPI)AfAm 119.88 Est GFR (CKD-EPI)NonAf 103.43 Random Glucose 143 H Calcium 8.8 Total Bilirubin 0.8 AST 110 H ALT 98 H Alkaline Phosphatase 141 H Total Protein 7.5 Albumin 2.7 L RPR Titer LABS NOTED. RESULTS OF REPEAT CBC NOTED. MINIMAL CHANGE NOTED IN COMPARISON TO ADMISSION CBC. RESULTS OF REPEAT CMP NOTED. MILD REDUCTION IN AST AND ALT LEVELS NOTED IN COMPARISON TO ADMISSION AST AND ALT LEVELS. SLIGHT INCREASE IN ALK. PHOS. LEVEL NOTED IN COMPARISON TO ADMISSION ALK. PHOS. LEVEL. 02/07/19 16:14 Assessment: 02/07/19 16:16 WITHDRAWAL SYMPTOMS. ELEVATED LIVER ENZYMES. HYPERGLYCEMIA. Plan: CONTINUE DETOX. INCREASE DAILY PO WATER INTAKE. FASTING GLUCOSE LEVEL FOR TOMORROW AM FOR ELEVATED RANDOM GLUCOSE LEVELS NOTED ON DETOX ADMISSION AND REPEAT LABORATORY ASSESSMENT.
[2019-02-07] MEDS: HYDROCORTISONE 1% TOPICAL OINT 30 GM TUBE TP PRN (18:05)
[2019-02-07] MEDS: THIAMINE HCL 100 MG TABLET (FP) PO SCH (22:45)
[2019-02-07] MEDS: MELATONIN 5 MG TABLETS PO PRN (22:46)
[2019-02-07] MEDS: CYCLOBENZAPRINE HCL 10 MG TABLET (FP) PO PRN (22:48)
[2019-02-08] MEDS ORDERED: chlordiazePOXIDE HCL 10 MG CAPSULE PO PRN
[2019-02-08] MEDS: chlordiazePOXIDE HCL 10 MG CAPSULE PO SCH ×4 (07:23→22:57)
[2019-02-08] MEDS: IBUPROFEN 400 MG TABLET (FP) PO PRN ×2 (07:26→23:00)
[2019-02-08] MEDS: CYCLOBENZAPRINE HCL 10 MG TABLET (FP) PO PRN ×2 (07:27→13:44)
[2019-02-08] MEDS ORDERED: METHADONE HCL 10 MG TABLET (FOR DETOX USE ONLY) PO ONE (10:00)
[2019-02-08] MEDS: PRENATAL VITAMINS W/ FOLIC ACID TABLET (FP) PO SCH (10:18)
[2019-02-08] MEDS: NICOTINE 21 MG/24 HOURS TOPICAL PATCH TD SCH (10:18)
[2019-02-08] MEDS: amLODIPine BESYLATE 10 MG TABLET (FP) PO SCH (10:18)
--- NOTE | 2019-02-08 10:44 | PN ---
S CIWA - CIWA Score Nausea/Vomitin-No Nausea/No Vomiting Muscle Tremors: 1-None Visible, but [place] Anxiety: 2 Agitation: 2 Paroxysmal Sweats: No Perspiration Orientation: 0-Oriented Tacttile Disturbances: 0-None Auditory Disturbances: 0-None Visual Disturbances: 0-None Headache: 0-None Present CIWA-Ar Total Score: 5 S COWS - Scale Resting Pulse: 1= [place] 81-100 Sweatin= No chills or Flushing Restless Observation: 1= Difficult to Sit Still Pupil Size: 0= Normal to Room Light Bone or Joint Aches: 0= None Runny Nose/ Eye Tearin= None GI Upset > 30mins: 0= None Tremor Observation of Outstretched Hands: 1= Tremor [place], Not Seen Yawning Observation: 1= 1-2x During Session Anxiety or Irritability: 1=Feels Anxious/Irritable Goose Flesh Skin: 0=Smooth Skin COWS Score: 5 S Progress Note (SOAP) Subjective: Patient irritable and easily agitated. However, on day 3 of detox protocol and scores lower. Objective: 02/08/19 10:42 Vitals: BP: 114/74 P: 84/min R: 20/min T: 98.2F Abnormal Lab Results 02/07/19 02/07/19 07:00 07:00 WBC 3.3 L RBC 3.55 L MCV 101.7 H MCH 35.0 H Absolute Neuts (auto) 0.8 L Neutrophils % 23.5 L D Neutrophils % (Manual) 29.2 L Lymphocytes % 62.9 H D Lymphocytes % (Manual) 56.3 H Eosinophils % 4.8 H Carbon Dioxide 34 H Anion Gap 3 L Random Glucose 143 H AST 110 H ALT 98 H Alkaline Phosphatase 141 H Albumin 2.7 L Laboratory 02/06/19 02/06/19 02/06/19 07:00 07:00 07:00 WBC 3.1 K/mm3 L K/mm3 (4.0-10.0) RBC 3.55 M/mm3 L M/mm3 (4.00-5.60) Hgb 12.3 GM/dL GM/dL (11.7-16.9) Hct 36.3 % % (35.4-49) MCV 102.2 fl H fl (80-96) MCH 34.6 pg H pg (25.7-33.7) MCHC 33.8 g/dl g/dl (32.0-35.9) RDW 12.7 % % (11.9-15.9) Plt Count 143 K/MM3 K/MM3 (134-434) MPV 8.3 fl fl (7.5-11.1) Absolute Neuts (auto) Neutrophils % Neutrophils % (Manual) Band Neutrophils % Lymphocytes % Lymphocytes % (Manual) Monocytes % Monocytes % (Manual) Eosinophils % Eosinophils % (Manual) Basophils % Basophils % (Manual) Myelocytes % (Man) Promyelocytes % (Man) Blast Cells % (Manual) Nucleated RBC % Metamyelocytes Hypochromia Platelet Estimate Polychromasia Poikilocytosis Anisocytosis Microcytosis Macrocytosis Sodium 139 mmol/L mmol/L (136-145) Potassium 3.7 mmol/L mmol/L (3.5-5.1) Chloride 103 mmol/L mmol/L (98-107) Carbon Dioxide 29 mmol/L mmol/L (21-32) Anion Gap 7 MMOL/L L MMOL/L (8-16) BUN 11.6 mg/dL mg/dL (7-18) Creatinine 0.7 mg/dL mg/dL (0.55-1.3) Est GFR (CKD-EPI)AfAm 126.64 Est GFR (CKD-EPI)NonAf 109.27 Random Glucose 149 mg/dL H mg/dL (74-106) Calcium 8.3 mg/dL L mg/dL (8.5-10.1) Total Bilirubin 0.6 mg/dL mg/dL (0.2-1) AST 129 U/L H U/L (15-37) ALT 108 U/L H U/L (13-61) Alkaline Phosphatase 137 U/L H U/L (45-117) Total Protein 7.6 g/dl g/dl (6.4-8.2) Albumin 2.6 g/dl L g/dl (3.4-5.0) RPR Titer Nonreactive (NONREACTIVE) 02/07/19 02/07/19 07:00 07:00 WBC 3.3 K/mm3 L K/mm3 (4.0-10.0) RBC 3.55 M/mm3 L M/mm3 (4.00-5.60) Hgb 12.4 GM/dL GM/dL (11.7-16.9) Hct 36.1 % % (35.4-49) MCV 101.7 fl H fl (80-96) MCH 35.0 pg H pg (25.7-33.7) MCHC 34.4 g/dl g/dl (32.0-35.9) RDW 12.3 % % (11.9-15.9) Plt Count 141 K/MM3 K/MM3 (134-434) MPV 8.2 fl fl (7.5-11.1) Absolute Neuts (auto) 0.8 K/mm3 L K/mm3 (1.5-8.0) Neutrophils % 23.5 % L D % (42.8-82.8) Neutrophils % (Manual) 29.2 % L % (42.8-82.8) Band Neutrophils % 0.0 % % Lymphocytes % 62.9 % H D % (8-40) Lymphocytes % (Manual) 56.3 % H % (8-40) Monocytes % 8.1 % % (3.8-10.2) Monocytes % (Manual) 8 % % (3.8-10.2) Eosinophils % 4.8 % H % (0-4.5) Eosinophils % (Manual) 4.2 % % (0-4.5) Basophils % 0.7 % % (0-2.0) Basophils % (Manual) 1.0 % % (0-2.0) Myelocytes % (Man) 0 % % (0-2) Promyelocytes % (Man) 0 % % (0-2) Blast Cells % (Manual) 0 % % (0-0) Nucleated RBC % 0 % % (0-0) Metamyelocytes 1 % % (0-2) Hypochromia 0 Platelet Estimate Decreased Polychromasia 0 Poikilocytosis 0 Anisocytosis 1+ Microcytosis 0 Macrocytosis 1+ Sodium 137 mmol/L mmol/L (136-145) Potassium 3.8 mmol/L mmol/L (3.5-5.1) Chloride 100 mmol/L mmol/L (98-107) Carbon Dioxide 34 mmol/L H mmol/L (21-32) Anion Gap 3 MMOL/L L MMOL/L (8-16) BUN 11.4 mg/dL mg/dL (7-18) Creatinine 0.8 mg/dL mg/dL (0.55-1.3) Est GFR (CKD-EPI)AfAm 119.88 Est GFR (CKD-EPI)NonAf 103.43 Random Glucose 143 mg/dL H mg/dL (74-106) Calcium 8.8 mg/dL mg/dL (8.5-10.1) Total Bilirubin 0.8 mg/dL mg/dL (0.2-1) AST 110 U/L H U/L (15-37) ALT 98 U/L H U/L (13-61) Alkaline Phosphatase 141 U/L H U/L (45-117) Total Protein 7.5 g/dl g/dl (6.4-8.2) Albumin 2.7 g/dl L g/dl (3.4-5.0) RPR Titer Assessment: 02/08/19 10:45 1. Macrocytic anemia 2. Elevated LFT's 3. Hypoalbuminemia Plan: 1. Macrocytic anemia: Consistent with thiamine and folate deficient which is common in alcoholics. Patient is on supplementation while in detox, encourage better nutrition upon discharge. 2. Elevated LFTs: Consistent with alcoholic liver disease Encourage to be abstinent and to follow up with rehabilitation for alf abstinence 3. Hyperglycemia: fasting also elevated. Maybe beginning of diabetes. Consider getting a HgA1c for confirmation and if positive start on Metformin. 4. Withdrawals: Continue with Detox. Dr. Chaney
[2019-02-08] MEDS: THIAMINE HCL 100 MG TABLET (FP) PO SCH (22:56)
[2019-02-09] MEDS ORDERED: METHADONE HCL 5 MG TABLET (FOR DETOX USE ONLY) PO ONE (06:00)
[2019-02-09] MEDS: chlordiazePOXIDE HCL 10 MG CAPSULE PO SCH ×2 (06:06→18:23)
[2019-02-09] MEDS: diphenhydrAMINE HCL 25 MG CAPSULE (FP) PO PRN ×2 (06:08→23:13)
[2019-02-09] MEDS: NICOTINE POLACRILEX 4 MG GUM BUC PRN (06:10)
[2019-02-09] MEDS: HYDROCORTISONE 1% TOPICAL OINT 30 GM TUBE TP PRN (07:35)
[2019-02-09] MEDS: amLODIPine BESYLATE 10 MG TABLET (FP) PO SCH (10:54)
[2019-02-09] MEDS: NICOTINE 21 MG/24 HOURS TOPICAL PATCH TD SCH (10:54)
[2019-02-09] MEDS: PRENATAL VITAMINS W/ FOLIC ACID TABLET (FP) PO SCH (10:54)
--- NOTE | 2019-02-09 12:40 | PN ---
[facility] CIWA - CIWA Score Nausea/Vomitin-No Nausea/No Vomiting Muscle Tremors: None Anxiety: 1-Mildly Anxious Agitation: 1-Slight > Activity Paroxysmal Sweats: No Perspiration Orientation: 0-Oriented Tacttile Disturbances: 0-None Auditory Disturbances: 0-None Visual Disturbances: 0-None Headache: 0-None Present CIWA-Ar Total Score: 2 S COWS - Scale Resting Pulse: 1= [place] 81-100 Sweatin= No chills or Flushing Restless Observation: 1= Difficult to Sit Still Pupil Size: 0= Normal to Room Light Bone or Joint Aches: 1= Mild Discomfort Runny Nose/ Eye Tearin= None GI Upset > 30mins: 0= None Tremor Observation of Outstretched Hands: 0= None Yawning Observation: 0= None Anxiety or Irritability: 1=Feels Anxious/Irritable Goose Flesh Skin: 0=Smooth Skin COWS Score: 4 [facility] Progress Note (SOAP) Subjective: anxiety Objective: 02/09/19 12:49 Vital Signs Temperature 97.7 F 02/09/19 09:26 Pulse Rate 81 02/09/19 09:26 Respiratory Rate 18 02/09/19 09:26 Blood Pressure 135/66 02/09/19 09:26 O2 Sat by Pulse Oximetry (%) aaox3 ambulating no acute distress Assessment: 02/09/19 12:49 mild withdrawal sx Plan: continue detox increase fluids d/c in am
[2019-02-09] MEDS ORDERED: chlordiazePOXIDE HCL 10 MG CAPSULE PO ONE (21:23)
[2019-02-09] MEDS: THIAMINE HCL 100 MG TABLET (FP) PO SCH (23:13)
[2019-02-09] MEDS: CYCLOBENZAPRINE HCL 10 MG TABLET (FP) PO PRN (23:13)
[2019-02-10] MEDS ORDERED: chlordiazePOXIDE HCL 10 MG CAPSULE PO ONE (05:00)
[2019-02-10 06:15] VITALS: BP 105/86; PULSE 95; TEMP 97.9
--- NOTE | 2019-02-10 11:53 | DS ---
[facility] Detox Discharge Summary Admission Date: 02/05/19 - History Present History: Alcohol Dependence, Cocaine Dependence, Opioid Dependence Additional Comments: Pt completed detox successfully and discharged safely. Pt left in stable condition, to follow up with his PCP within 1-2 weeks. Pertinent Past History: HTN Hepatitis C (untreated) Pancreatitis Depression Nicotine dependence - Physical Exam Results Vital Signs: Vital Signs Temperature 97.9 F 02/10/19 06:00 Pulse Rate 95 H 02/10/19 06:00 Respiratory Rate 18 02/10/19 06:00 Blood Pressure 105/86 02/10/19 06:00 O2 Sat by Pulse Oximetry (%) Pertinent Admission Physical Exam Findings: Withdrawal sxs Laboratory Tests 02/06/19 02/06/19 02/06/19 07:00 07:00 07:00 WBC 3.1 L RBC 3.55 L Hgb 12.3 Hct 36.3 MCV 102.2 H MCH 34.6 H MCHC 33.8 RDW 12.7 Plt Count 143 MPV 8.3 Absolute Neuts (auto) Neutrophils % Neutrophils % (Manual) Band Neutrophils % Lymphocytes % Lymphocytes % (Manual) Monocytes % Monocytes % (Manual) Eosinophils % Eosinophils % (Manual) Basophils % Basophils % (Manual) Myelocytes % (Man) Promyelocytes % (Man) Blast Cells % (Manual) Nucleated RBC % Metamyelocytes Hypochromia Platelet Estimate Polychromasia Poikilocytosis Anisocytosis Microcytosis Macrocytosis Sodium 139 Potassium 3.7 Chloride 103 Carbon Dioxide 29 Anion Gap 7 L BUN 11.6 Creatinine 0.7 Est GFR (CKD-EPI)AfAm 126.64 Est GFR (CKD-EPI)NonAf 109.27 Random Glucose 149 H Hemoglobin A1c % Calcium 8.3 L Total Bilirubin 0.6 AST 129 H ALT 108 H Alkaline Phosphatase 137 H Total Protein 7.6 Albumin 2.6 L RPR Titer Nonreactive 02/07/19 02/07/19 02/09/19 07:00 07:00 08:00 WBC 3.3 L RBC 3.55 L Hgb 12.4 Hct 36.1 MCV 101.7 H MCH 35.0 H MCHC 34.4 RDW 12.3 Plt Count 141 MPV 8.2 Absolute Neuts (auto) 0.8 L Neutrophils % 23.5 L D Neutrophils % (Manual) 29.2 L Band Neutrophils % 0.0 Lymphocytes % 62.9 H D Lymphocytes % (Manual) 56.3 H Monocytes % 8.1 Monocytes % (Manual) 8 Eosinophils % 4.8 H Eosinophils % (Manual) 4.2 Basophils % 0.7 Basophils % (Manual) 1.0 Myelocytes % (Man) 0 Promyelocytes % (Man) 0 Blast Cells % (Manual) 0 Nucleated RBC % 0 Metamyelocytes 1 Hypochromia 0 Platelet Estimate Decreased Polychromasia 0 Poikilocytosis 0 Anisocytosis 1+ Microcytosis 0 Macrocytosis 1+ Sodium 137 Potassium 3.8 Chloride 100 Carbon Dioxide 34 H Anion Gap 3 L BUN 11.4 Creatinine 0.8 Est GFR (CKD-EPI)AfAm 119.88 Est GFR (CKD-EPI)NonAf 103.43 Random Glucose 143 H Hemoglobin A1c % 5.9 Calcium 8.8 Total Bilirubin 0.8 AST 110 H ALT 98 H Alkaline Phosphatase 141 H Total Protein 7.5 Albumin 2.7 L RPR Titer Labs reviewed: noted with prediabetes with hyperglycemia, elevated LFTs - Treatment Hospital Course: Detox Protocol Followed, Detoxed Safely, Responded well, Discharged Condition Good - Medication Discharge Medications: Ambulatory Orders traZODone HCL [Desyrel -] 100 mg PO HS #30 tablet 05/30/18 Amlodipine Besylate 5 mg PO DAILY 01/29/19 - Diagnosis (1) Hepatitis C carrier Status: Chronic (2) Depression Status: Chronic (3) Pancreatitis Status: Chronic (4) Opioid dependence Status: Acute (5) Prediabetes Status: Acute (6) Alcohol dependence with uncomplicated withdrawal Status: Acute (7) Cocaine use disorder Status: Acute (8) Elevated LFTs Status: Acute (9) Hypertension Status: Chronic Qualifiers: Hypertension type: essential hypertension Qualified Code(s): I10 - Essential (primary) hypertension (10) Nicotine dependence Status: Chronic Qualifiers: Nicotine product type: cigarettes Substance use status: in withdrawal Qualified Code(s): F17.213 - Nicotine dependence, cigarettes, with withdrawal - AMA Did Patient Leave Against Medical Advice: No (Follow up with PCP within 1-2 weeks.)
== END 2019-02-10 06:10 | disposition home or self-care (01) | DRG 773 ==
LOC: YASAS 17:25 → Y6N 22:42
PROVIDERS: ADMIT Surgery; ATTEND Surgery
PROC: HZ2ZZZZ Detoxification Services for Substance Abuse Treatment (ICD-10-PCS; principal; 2019-02-05)
DX: F11.23 Opioid dependence with withdrawal (principal); F10.220 Alcohol dependence with intoxication, uncomplicated; F10.230 Alcohol dependence with withdrawal, uncomplicated; F14.90 Cocaine use, unspecified, uncomplicated; F32.9 Major depressive disorder, single episode, unspecified; I10 Essential (primary) hypertension; R73.03 Prediabetes; R94.5 Abnormal results of liver function studies; D53.9 Nutritional anemia, unspecified; R73.9 Hyperglycemia, unspecified; K59.00 Constipation, unspecified; Z87.19 Personal history of other diseases of the digestive system; Z88.1 Allergy status to other antibiotic agents; Z88.6 Allergy status to analgesic agent
CPT/HCPCS: 36415; 80053; 83036; 85025; 85027; 86593; J0735

== ENCOUNTER 2019-02-14 09:06 | Inpatient (IN) | payer OTHER ==
[2019-02-14 09:47] VITALS: BMI 28.3
--- NOTE | 2019-02-14 10:57 | HP ---
CIWA Score Nausea/Vomitin-No Nausea/No Vomiting Muscle Tremors: 1-None Visible, but [place] Anxiety: 1-Mildly Anxious Agitation: 0-Normal Activity Paroxysmal Sweats: No Perspiration Orientation: 0-Oriented Tacttile Disturbances: 0-None Auditory Disturbances: 0-None Visual Disturbances: 0-None Headache: 1-Very Mild CIWA-Ar Total Score: 3 - Admission Criteria OASAS Guidelines: Admission for Medically Managed Detox: Requires at least one of the followin. CIWA greater than 12 2. Seizures within the past 24 hours 3. Delirium tremens within the past 24 hours 4. Hallucinations within the past 24 hours 5. Acute intervention needed for co occurring medical disorder 6. Acute intervention needed for co occurring psychiatric disorder 7. Severe withdrawal that cannot be handled at a lower level of care (continued vomiting, continued diarrhea, abnormal vital signs) requiring intravenous medication and/or fluids 8. Admission ROS S - HPI Chief Complaint: i am here for rehab from alcohol Allergies/Adverse Reactions: Allergies Allergy/AdvReac Type Severity Reaction Status Date / Time amoxicillin Allergy Severe Itching Verified 02/14/19 09:40 morphine Allergy Severe Verified 02/14/19 09:40 History of Present Illness: this 53 years old male with alcohol dependence,hroin abused,xanax abused,here for rehab patient has history of admissioions in [facility] 01/28/19 to 02/01/19 02/05/19 to 02/10/19 history of hypertension no seizure no syncope schizoafective disorder - Ebola screening Have you traveled outside of the country in the last 21 days: No Have you had contact with anyone from an Ebola affected area: No - Review of Systems Constitutional: Malaise EENT: reports: No Symptoms Reported Respiratory: reports: No Symptoms reported Cardiac: reports: No Symptoms Reported GI: reports: No Symptoms Reported : reports: No Symptoms Reported Musculoskeletal: reports: No Symptoms Reported Integumentary: reports: No Symptoms Reported Neuro: reports: No Symptoms reported Endocrine: reports: No Symptoms Reported Hematology: reports: No Symptoms Reported Psychiatric: reports: No Sypmtoms Reported Other Systems: Reviewed and Negative Patient History - Patient Medical History Hx Anemia: No Hx Asthma: No Hx Chronic Obstructive Pulmonary Disease (COPD): No Hx Cancer: No Hx Cardiac Disorders: No Hx Congestive Heart Failure: No Hx Hypertension: No Hx Hypercholesterolemia: No Hx Pacemaker: No HX Cerebrovascular Accident: No Hx Seizures: No Hx Dementia: No Hx Diabetes: No Hx Gastrointestinal Disorders: No Hx Liver Disease: Yes (hepatitis c) Hx Genitourinary Disorders: No Hx Sexually Transmitted Disorders: No Hx Renal Disease (ESRD): No Hx Thyroid Disease: No Hx Human Immunodeficiency Virus (HIV): No (last 03/20 negative) Hx Hepatitis C: Yes (follow up with pmd no treatment) Hx Depression: Yes Hx Suicide Attempt: No Hx Bipolar Disorder: No Hx Schizophrenia: Yes Other Medical History: no suicidal,no homicidal,schizoaffective disorder - Patient Surgical History Past Surgical History: No Hx Neurologic Surgery: No Hx Cataract Extraction: No Hx Cardiac Surgery: No Hx Lung Surgery: No Hx Breast Surgery: No Hx Breast Biopsy: No Hx Abdominal Surgery: No Hx Appendectomy: No Hx Cholecystectomy: No Hx Genitourinary Surgery: No Hx Section: No Hx Orthopedic Surgery: No Anesthesia Reaction: No - PPD History Previous Implant?: Yes Documented Results: Negative w/proof Date: 05/19/18 Results: 0 MM PPD to be Administered?: No - Smoking Cessation Smoking history: Current every day smoker Have you smoked in the past 12 months: Yes Aproximately how many cigarettes per day: 40 Cigars Per Day: 0 Hx Chewing Tobacco Use: No Initiated information on smoking cessation: Yes 'Breaking Loose' booklet given: 02/14/19 - Substance & Tx. History Hx Alcohol Use: Yes Hx Substance Use: Yes Substance Use Type: Alcohol, Cocaine, Heroin Hx Substance Use Treatment: Yes ([facility] 01/28/19 to 02/01/19,02/05/19 to 02/10/19) - Substances abused Heroin Substance route: Injection Frequency: Daily Amount used: 2 bundles Age of first use: 16 Date of last use: 02/14/19 Alcohol Substance route: Oral Frequency: Daily Amount used: 1 liter of bourbon a day Age of first use: 13 Date of last use: 02/14/19 Cocaine Substance route: Inhalation Frequency: 1-2 times per week Amount used: 1gm Age of first use: 17 Date of last use: 02/07/19 Family Disease History - Family Disease History Family Disease History: Diabetes: Mother Admission Physical Exam [facility] - Vital Signs Vital Signs: Vital Signs - 24 hr 02/14/19 09:37 Temperature 98.7 F Pulse Rate 92 H Respiratory 16 Rate Blood Pressure 113/76 - Physical General Appearance: Yes: Alcohol on Breath HEENTM: Yes: Normal ENT Inspection, JOLYNN, Pharynx Normal Respiratory: Yes: Lungs Clear, Normal Breath Sounds, No Respiratory Distress Neck: Yes: Within Normal Limits, Supple, Trachea in good position Breast: Yes: Within Normal Limits Cardiology: Yes: Within Normal Limits, Regular Rhythm, Regular Rate, S1, S2 Abdominal: Yes: Within Normal Limits, Normal Bowel Sounds, Non Tender, Flat, Soft Genitourinary: Yes: Within Normal Limits Back: Yes: Within Normal Limits Musculoskeletal: Yes: Within Normal Limits Extremities: Yes: Within Normal Limits, Other Neurological: Yes: Within Normal Limits, 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 NML intact, Fully Oriented, Alert Integumentary: Yes: Within Normal Limits Lymphatic: Yes: Within Normal Limits - Diagnostic (1) Alcohol dependence Current Visit: Yes Status: Acute (2) Alcohol dependence Current Visit: Yes Status: Acute (3) Cocaine dependence Current Visit: Yes Status: Acute (4) Heroin abuse Current Visit: Yes Status: Acute Cleared for Admission [facility] - Detox or Rehab Claeared for Rehab Admission: Yes Breathalyzer - Breathalyzer Breathalyzer: 0 Urine Drug Screen - Test Device Lot number: [id number] Expiration date: 10/30/20 - Control Is test valid?: Yes - Results Drug screen NEGATIVE: No Urine drug screen results: MTD-Methadone, BZO-Benzodiazepines, BUP-Suboxone Inpatient Rehab Admission - Rehab Decision to Admit Inpatient rehab admission?: Yes - Initial Determination Are CD services needed?: Yes Free of communicable disease: Yes Not in need of hospitalization: Yes - Rehab Admission Criteria Previous failed treatment: Yes Poor recovery environment: Yes Comorbidities: Yes Lacks judgement: No Patient is meeting Inpatient Rehab admission criteria:: Yes
[2019-02-14] MEDS ORDERED: LOPERAMIDE HCL 2 MG CAPSULE PO PRN (11:43)
[2019-02-14] MEDS ORDERED: hydrOXYzine PAMOATE 25 MG CAPSULE (FP) PO PRN (11:43)
[2019-02-14] MEDS ORDERED: MAGNESIUM HYDROX 2400MG/30ML ORAL SUSPENSION 30 ML CUP PO PRN (11:43)
[2019-02-14] MEDS ORDERED: MAGNESIUM CITRATE 300 ML BOTTLE PO PRN (11:43)
[2019-02-14] MEDS ORDERED: MAG HYDROX/AL HYDROX/SIMETH 30 ML UNIT-DOSE CUP PO PRN (11:43)
[2019-02-14] MEDS ORDERED: ACETAMINOPHEN 325 MG TABLET (FP) PO PRN (11:43)
[2019-02-14] MEDS ORDERED: guaiFENesin 200 MG/10 ML 10 ML UNIT-DOSE CUPS PO PRN (11:43)
[2019-02-14] MEDS ORDERED: MENTHOL/PHENOL 1 EACH UD MM PRN (11:43)
[2019-02-14] MEDS ORDERED: IBUPROFEN 400 MG TABLET (FP) PO PRN (11:43)
[2019-02-14] MEDS ORDERED: P-EPHED 60MG/TRIPROLIDI 2.5MG TABLET PO PRN (11:43)
[2019-02-14] MEDS: THIAMINE HCL 100 MG TABLET (FP) PO SCH (21:54)
[2019-02-14] MEDS ORDERED: MELATONIN 5 MG TABLETS PO PRN (22:00)
[2019-02-15] MEDS: PRENATAL VITAMINS W/ FOLIC ACID TABLET (FP) PO SCH (10:06)
[2019-02-15] MEDS ORDERED: ONDANSETRON *ODT* 4 MG TABLET SL PRN (10:42)
--- NOTE | 2019-02-15 10:51 | PN ---
[facility] Progress Note Note: Patient presents with c/o nausea, diarrhea and night sweats. Patient admitted for ETOH, BZO and Heroin dependence on 02/14/19. Patient denies abdominal pain, chest pain, sob and dizziness. Vital Signs (72 hours) 02/14/19 02/14/19 02/15/19 09:37 16:07 00:30 Temperature 98.7 F 98.4 F Pulse Rate 92 H 91 H Respiratory 16 18 18 Rate Blood Pressure 113/76 122/75 02/15/19 02/15/19 03:30 06:30 Temperature 97.1 F L Pulse Rate 83 Respiratory 18 18 Rate Blood Pressure 111/70 PE: alert and oriented x3 skin warm and dry +perrla, eoms intact bl car s1s2 resp cta bl gi soft, bs+, nt, nd ext no tremors, amb ad tony A/P: withdrawal symptoms etoh dependence opiod dependence bzo dependence Will order zofran 4mg sl bid prn immodium continued prn encourage oral fluids start clonidine 0.1mg bid monitor clinically
[2019-02-15] MEDS: cloNIDine HCL 0.1 MG TABLET PO SCH ×2 (10:55→21:16)
[2019-02-15] MEDS ORDERED: BUPRENORPHINE/NALOXONE 2 MG/0.5 MG FILM PACKET SL ONE (15:29)
--- NOTE | 2019-02-15 15:35 | PN ---
[facility] COWS - Scale Resting Pulse: 0= OH 80 or Below Sweatin= Chills/Flushing Restless Observation: 1= Difficult to Sit Still Pupil Size: 0= Normal to Room Light Bone or Joint Aches: 2= Severe Diffuse Aches Runny Nose/ Eye Tearin= None GI Upset > 30mins: 2= Nausea/Diarrhea Tremor Observation of Outstretched Hands: 0= None Yawning Observation: 0= None Anxiety or Irritability: 2=Irritable/Anxious Goose Flesh Skin: 0=Smooth Skin COWS Score: 8 [facility] Progress Note (SOAP) Subjective: Patient presents with c/o chills, nausea and diarrhea, body aches and anxiety/ restlessness. Patient has hx of ETOH/heroin/bzo dependence. Urine tox on admission + MTD, BZO, BUP. Patient not prescribed Suboxone, he states he bought medication on the street. Patient reports using up to one bundle of heroin daily. Last use 02/14/2019 at 10am. I stop reviewed and negative. Objective: 02/15/19 15:35 Vital Signs (72 hours) 02/14/19 02/14/19 02/15/19 09:37 16:07 00:30 Temperature 98.7 F 98.4 F Pulse Rate 92 H 91 H Respiratory 16 18 18 Rate Blood Pressure 113/76 122/75 02/15/19 02/15/19 03:30 06:30 Temperature 97.1 F L Pulse Rate 83 Respiratory 18 18 Rate Blood Pressure 111/70 PE: alert and oriented x 3 skin warm and dry +perrla, eoms intact bl gi soft, nt, nd ext no tremors, full rom anxious and restless Assessment: 02/15/19 15:37 Protracted withdrawal symptoms opiod use disorder etoh dependence bzo dependence Plan: Will treat symptomatically with suboxone 2mg sl once now and then daily until connection with outpatient program made continue supportive care encourage fluids monitor clinically
[2019-02-15] MEDS: PANTOPRAZOLE 40 MG TABLET (FP) PO SCH (15:55)
[2019-02-15] MEDS: THIAMINE HCL 100 MG TABLET (FP) PO SCH (21:16)
[2019-02-16 06:49] VITALS: TEMP 98.2
[2019-02-16] MEDS ORDERED: BUPRENORPHINE/NALOXONE 2 MG/0.5 MG FILM PACKET SL SCH (10:00)
[2019-02-16] MEDS: PANTOPRAZOLE 40 MG TABLET (FP) PO SCH (10:09)
[2019-02-16] MEDS: cloNIDine HCL 0.1 MG TABLET PO SCH (10:09)
[2019-02-16] MEDS: PRENATAL VITAMINS W/ FOLIC ACID TABLET (FP) PO SCH (10:09)
[2019-02-16 11:27] VITALS: BP 102/65; PULSE 61
--- NOTE | 2019-02-16 19:04 | PN ---
[facility] Progress Note Note: Patient is referred for abdominal cramps with one episode of vomiting this afternoon. He reports diarrhea which he had yesterday has resolved but he has pain when he has to strain and move his bowel, he is requesting for dialudid for his abdominal pain. He denies fever, chills, chest pain or night sweats. Patient had similar episode with diarrhea yesterday and was started on subaxone to manage his withdrawal sxs. General Appearance: No apparent distress Chest: Lungs clear in all lang CVS:S1S2, RRR Abdomen: BS x4, soft, ,ND, mild tenderness to the epigastric area, no organomegaly A/P- N/V Continue with zofran and protonix Monitoring ongoing
--- NOTE | 2019-02-16 19:51 | PN ---
[facility] Progress Note Note: Patient seen and examined this evening for abdominal discomfort. Moments later he signed out AMA, he had attempted to sign out AMA this morning but was successfully talked out of that. He was admitted to rehab on 02/14 for alcohol rehab. He has h/o Hep C and schizophrenia. Vital Signs (72 hours) 02/14/19 02/14/19 02/15/19 09:37 16:07 00:30 Temperature 98.7 F 98.4 F Pulse Rate 92 H 91 H Respiratory 16 18 18 Rate Blood Pressure 113/76 122/75 02/15/19 02/15/19 02/15/19 03:30 06:30 22:00 Temperature 97.1 F L Pulse Rate 83 76 Respiratory 18 18 18 Rate Blood Pressure 111/70 104/70 02/16/19 02/16/19 02/16/19 03:30 06:48 11:26 Temperature 98.2 F Pulse Rate 74 61 Respiratory 18 18 Rate Blood Pressure 105/64 102/65
== END 2019-02-16 19:40 | disposition left against medical advice (07) | DRG 770 ==
LOC: YASAS 09:06 → Y3W 11:56
PROVIDERS: ADMIT Neuromusculoskeletal Medicine & OMM; ATTEND Neuromusculoskeletal Medicine & OMM
PROC: HZ42ZZZ Group Counseling for Substance Abuse Treatment, Cognitive-Behavioral (ICD-10-PCS; principal; 2019-02-14)
DX: F11.20 Opioid dependence, uncomplicated (principal); F10.20 Alcohol dependence, uncomplicated; F13.20 Sedative, hypnotic or anxiolytic dependence, uncomplicated; F17.210 Nicotine dependence, cigarettes, uncomplicated; R11.2 Nausea with vomiting, unspecified; B18.2 Chronic viral hepatitis C; Z88.2 Allergy status to sulfonamides; Z88.6 Allergy status to analgesic agent
CPT/HCPCS: J0735; Q0162

== ENCOUNTER 2019-02-19 08:25 | Inpatient (IN) | payer OTHER ==
[2019-02-19 08:48] VITALS: BMI 28.3
--- NOTE | 2019-02-19 09:54 | HP ---
CIWA Score Nausea/Vomitin-Int. Nausea w/Dry Heave Muscle Tremors: 2 Anxiety: 3 Agitation: 1-Slight > Activity Paroxysmal Sweats: 3 Orientation: 1-Uncertain about Date Tacttile Disturbances: 1-Very Mild Itch/Numbness Auditory Disturbances: 1-Very Mild Visual Disturbances: 2-Mild Sensitivity Headache: 2-Mild (appropriate for alcohol detox) CIWA-Ar Total Score: 20 - Admission Criteria OASAS Guidelines: Admission for Medically Managed Detox: Requires at least one of the followin. CIWA greater than 12 2. Seizures within the past 24 hours 3. Delirium tremens within the past 24 hours 4. Hallucinations within the past 24 hours 5. Acute intervention needed for co occurring medical disorder 6. Acute intervention needed for co occurring psychiatric disorder 7. Severe withdrawal that cannot be handled at a lower level of care (continued vomiting, continued diarrhea, abnormal vital signs) requiring intravenous medication and/or fluids 8. Admission ROS S - HPI Chief Complaint: " I want to stop drinking, I want to live and I want to be alive." Allergies/Adverse Reactions: Allergies Allergy/AdvReac Type Severity Reaction Status Date / Time amoxicillin Allergy Severe Itching Verified 02/19/19 09:00 morphine Allergy Severe Verified 02/19/19 09:00 History of Present Illness: 53 year old black male with history of alcohol dependence. H autumnas last here in 02/16/19 and signed out prior to completion. Upon leaving, he immediately relapsed and started drinking. He is drinking 1 liter a day of bourbon, started drinking at 13 years old. He has had blackouts. He smokes ciggarettes, 2 PPD since a young age. PMHx: HCV, HTN, early onset DM PsurgHx: Surgery from laceration of mouth PsychHx; attempted suicide in 1989, but no current suicidal ideation or plans at this time. Patient has no pending legal issues. Exam Limitations: No Limitations - Ebola screening Have you traveled outside of the country in the last 21 days: No (N) Have you had contact with anyone from an Ebola affected area: No Have you been sick,other than usual withdrawal symptoms: No Do you have a fever: No - Review of Systems Constitutional: Chills, Diaphoresis EENT: reports: Blurred Vision, Nose Congestion Respiratory: reports: No Symptoms reported Cardiac: reports: Lightheadedness GI: reports: Abdominal cramping : reports: No Symptoms Reported Musculoskeletal: reports: Other (leg cramps and finger pain) Integumentary: reports: No Symptoms Reported Neuro: reports: No Symptoms reported Endocrine: reports: No Symptoms Reported Hematology: reports: No Symptoms Reported Psychiatric: reports: Judgement Intact, Mood/Affect Appropiate, Orientated x3 Other Systems: Reviewed and Negative Patient History - Patient Medical History Hx Anemia: No Hx Asthma: No Hx Chronic Obstructive Pulmonary Disease (COPD): No Hx Cancer: No Hx Cardiac Disorders: No Hx Congestive Heart Failure: No Hx Hypertension: No Hx Hypercholesterolemia: No Hx Pacemaker: No HX Cerebrovascular Accident: No Hx Seizures: No Hx Dementia: No Hx Diabetes: No Hx Gastrointestinal Disorders: No Hx Liver Disease: Yes (hepatitis c) Hx Genitourinary Disorders: No Hx Sexually Transmitted Disorders: No Hx Renal Disease (ESRD): No Hx Thyroid Disease: No Hx Human Immunodeficiency Virus (HIV): No (last 03/20 negative) Hx Hepatitis C: Yes (follow up with pmd no treatment) Hx Depression: Yes Hx Suicide Attempt: No Hx Bipolar Disorder: No Hx Schizophrenia: Yes - Patient Surgical History Past Surgical History: No Hx Neurologic Surgery: No Hx Cataract Extraction: No Hx Cardiac Surgery: No Hx Lung Surgery: No Hx Breast Surgery: No Hx Breast Biopsy: No Hx Abdominal Surgery: No Hx Appendectomy: No Hx Cholecystectomy: No Hx Genitourinary Surgery: No Hx Section: No Hx Orthopedic Surgery: No Anesthesia Reaction: No - PPD History Date: 05/19/18 Results: 0 MM - Smoking Cessation Smoking history: Current every day smoker Have you smoked in the past 12 months: Yes Aproximately how many cigarettes per day: 40 Cigars Per Day: 0 Hx Chewing Tobacco Use: No Initiated information on smoking cessation: Yes 'Breaking Loose' booklet given: 02/19/19 - Substances abused Heroin Substance route: Injection Frequency: Daily Amount used: 2 bundles Age of first use: 16 Date of last use: 02/16/19 Alcohol Substance route: Oral Frequency: Daily Amount used: 1 liter of bourbon a day Age of first use: 11 Date of last use: 02/19/19 Cocaine Substance route: Inhalation Frequency: 1-2 times per week Amount used: 1gm Age of first use: 17 Date of last use: 02/07/19 Family Disease History - Family Disease History Family History: Unremarkable Family Disease History: Diabetes: Mother, Other: Father (unknown, never met him) , Brother (2 brother, different fathers), Son (2 sons alive and well), Daughter (4 daughters alive and well) Admission Physical Exam [facility] - Vital Signs Vital Signs: Vital Signs - 24 hr 02/19/19 02/19/19 08:44 09:02 Temperature 98.6 F 98.6 F Pulse Rate 88 88 Respiratory 18 18 Rate Blood Pressure 131/90 131/90 - Physical General Appearance: Yes: Moderate Distress HEENTM: Yes: EOMI, Hearing grossly Normal, Normocephalic, JOLYNN, Pharynx Normal, Tm's normal Respiratory: Yes: Chest Non-Tender, Crackles (rhonchi audible left mid and lower lung lang) Neck: Yes: No masses,lesions,Nodules, Supple, Trachea in good position Breast: Yes: Within Normal Limits Cardiology: Yes: Regular Rhythm, S1, S2, Tachycardia Abdominal: Yes: Non Tender, Soft, Increased Bowel Sounds, Protuberent Genitourinary: Yes: Within Normal Limits Back: Yes: Normal Inspection Musculoskeletal: Yes: full range of Motion, Other (unsteady gait) Extremities: Yes: Normal Capillary Refill, Normal Inspection, Normal Range of Motion Neurological: Yes: 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 NML intact, Alert, Motor Strength 5/5 Integumentary: Yes: Normal Color, Warm Lymphatic: Yes: Within Normal Limits - Diagnostic (1) Alcohol dependence with uncomplicated withdrawal Current Visit: Yes Status: Acute (2) Prediabetes Current Visit: Yes Status: Acute (3) Hypertension Current Visit: Yes Status: Chronic Qualifiers: Hypertension type: essential hypertension Qualified Code(s): I10 - Essential (primary) hypertension Cleared for Admission [facility] - Detox or Rehab [facility] Level of Care: Medically Managed Detox Regimen/Protocol: Librium Screened but not Admitted - Documentation of Visit Screened but not Admitted: No Breathalyzer - Breathalyzer Breathalyzer: 0.018 Vital Signs - Vital Signs Vital signs refused: No Temperature: 98.6 F Temperature source: Oral Pulse Rate: 88 Respiratory Rate: 18 Blood Pressure: 131/90 BP Location: Left Arm Blood Pressure position: Sitting - Height Height: 5 ft 8 in - Weight Weight: 186 lb Weight measurement method: Standing scale - BMI Body Mass Index (BMI): 28.3 - Bowel Function Bowel Movement: No Urine Drug Screen - Test Device Lot number: [id number] Expiration date: 11/30/20 - Control Is test valid?: Yes - Results Drug screen NEGATIVE: No Urine drug screen results: MTD-Methadone, BZO-Benzodiazepines, BUP-Suboxone Inpatient Rehab Admission - Rehab Decision to Admit Inpatient rehab admission?: No
[2019-02-19] MEDS ORDERED: BISMUTH SUBSALICYLATE 262 MG/15 ML BTL PO PRN (10:05)
[2019-02-19] MEDS ORDERED: chlordiazePOXIDE HCL 25 MG CAPSULE PO PRN (10:05)
[2019-02-19] MEDS ORDERED: MAGNESIUM HYDROX 2400MG/30ML ORAL SUSPENSION 30 ML CUP PO PRN (10:05)
[2019-02-19] MEDS ORDERED: ACETAMINOPHEN 325 MG TABLET (FP) PO PRN (10:05)
[2019-02-19] MEDS ORDERED: MAG HYDROX/AL HYDROX/SIMETH 30 ML UNIT-DOSE CUP PO PRN (10:05)
[2019-02-19] MEDS ORDERED: MENTHOL/PHENOL 1 EACH UD MM PRN (10:05)
[2019-02-19] MEDS ORDERED: MAGNESIUM CITRATE 300 ML BOTTLE PO PRN (10:05)
[2019-02-19] MEDS ORDERED: IBUPROFEN 400 MG TABLET (FP) PO PRN (10:05)
[2019-02-19 12:20] LABS: HEMATOCRIT 38.4 % (35.4-49); HEMOGLOBIN 13.4 GM/dL (11.7-16.9); MCH 34.6 pg (25.7-33.7); MCHC 35.1 g/dl (32.0-35.9); MEAN CELL VOLUME 98.7 fl (80-96); MEAN PLT VOLUME 7.6 fl (7.5-11.1); PLATELET COUNT 203 K/MM3 (134-434); RBC 3.89 M/mm3 (4.00-5.60); RDW 11.4 % (11.9-15.9); WHITE BLOOD COUNT 8.7 K/mm3 (4.0-10.0)
[2019-02-19] MEDS: chlordiazePOXIDE HCL 25 MG CAPSULE PO SCH ×3 (12:21→22:37)
[2019-02-19 12:23] LABS: ALBUMIN 3.1 g/dl (3.4-5.0); BILIRUBIN,TOTAL 0.5 mg/dL (0.2-1); BLOOD UREA NITROGEN 13.7 mg/dL (7-18); CALCIUM 8.8 mg/dL (8.5-10.1); CREATININE 0.9 mg/dL (0.55-1.3); TOT PROT 9.3 g/dl (6.4-8.2)
[2019-02-19] MEDS: NICOTINE 21 MG/24 HOURS TOPICAL PATCH TD SCH (12:41)
--- NOTE | 2019-02-19 12:41 | PN ---
Progress Note (short form) - Note Progress Note: Consultation for abdominal pain. Patient is a 53 yo M admitted for alcohol detox. He has a history of Hep C and chronic pancreatitis. He complains of a constant, non-radiating, "10/10" RLQ abdominal pain that started this morning. Patient says he has been dealing with this pain for many years. He says it is the same type of pain. Patient was also here for detox a few weeks ago and was sent to the [facility] ED for abdominal pain. CT abdomen was done which was unremarkable and was discharged on 02/01. Patient is currently detoxing and vomited multiple times when he was admitted this morning. He has not vomited since being admitted. currently denies nausea, vomiting, diarrhea, blood in stool. Vital Signs Period Temp Pulse Resp BP Sys/Zhao Pulse Ox Last 24 Hr 98.6 F-98.6 F 88-88 18-18 131-131/90-90 Physical: Was asleep when I first walked in. Patient currently afebrile. In mild distress when started talking to him. +rhonchi +BS, RLQ tenderness to palpation. no guarding, no rebound, no distention. neg rovsing sign. Plan: At the moment, not suspicious for acute event. Patient Afebrile. Currently not nauseas or vomiting. Likely chronic. recent CT abdomen unremarkable 03/03. Monitor VS check Lipase levels PO hydration [facility] medical team if change in status. If symptoms worsen, consider transfer to the ER
[2019-02-19] MEDS: THIAMINE HCL 100 MG TABLET (FP) PO SCH (22:37)
[2019-02-20] MEDS: hydrOXYzine PAMOATE 25 MG CAPSULE (FP) PO PRN (02:36)
[2019-02-20] MEDS: ACETAMINOPHEN 325 MG TABLET (FP) PO PRN ×2 (02:36→20:48)
[2019-02-20] MEDS: chlordiazePOXIDE HCL 25 MG CAPSULE PO SCH ×4 (05:27→22:26)
--- NOTE | 2019-02-20 07:53 | PN ---
Teaching Attending Note Name of Resident: Denisse Thomas ATTENDING PHYSICIAN STATEMENT I saw and evaluated the patient. I reviewed the resident's note and discussed the case with the resident. I agree with the resident's findings and plan as documented. SUBJECTIVE: Agree with resident's subjective findings OBJECTIVE: Agree with resident's objective findings ASSESSMENT AND PLAN: Agree with management of problem Will continue to monitor vitals signs and if continues afebrile, no need to do anymore work up. Dr. Chaney Problem List - Problems (1) Alcohol dependence with uncomplicated withdrawal Code(s): F10.230 - ALCOHOL DEPENDENCE WITH WITHDRAWAL, UNCOMPLICATED (2) Prediabetes Code(s): R73.03 - PREDIABETES (3) Hypertension Code(s): I10 - ESSENTIAL (PRIMARY) HYPERTENSION Qualifiers: Hypertension type: essential hypertension Qualified Code(s): I10 - Essential (primary) hypertension
--- NOTE | 2019-02-20 08:41 | PN ---
[facility] CIWA - CIWA Score Nausea/Vomitin-Mild Nausea/No Vomiting Muscle Tremors: 3 Anxiety: 4-Mod. Anxious/Guarded Agitation: 3 Paroxysmal Sweats: 2 Orientation: 1-Uncertain about Date (to date of the week) Tacttile Disturbances: 0-None Auditory Disturbances: 0-None Visual Disturbances: 0-None Headache: 1-Very Mild CIWA-Ar Total Score: 15 S Progress Note (SOAP) Subjective: sitting on the edge of the bed eating breakfast denies nausea no vomiting denies abdominal pain ambulating on hallway demand staff call 911 to ER for ultrasound emotional assurance given that ultrasound will be done after discharged from detox and return to hospital for special surgery patient reporting that he vomiting blood since 1987 on and off through out the years no medical treatment acute pancreatitis 2017 "nothing to eat for days" discuss CT of abdomen indicates fatty liver mostly related to alcohol misuse patient became agitated and irritable refuses to have further conversation with the sba underwriter however the patient requests to have "Ultrasound" of the abdomen done today encourage the patient return to primary care provider upon detox discharge Objective: 02/20/19 11:40 Vital Signs Temperature 97.9 F 02/20/19 09:21 Pulse Rate 80 02/20/19 09:21 Respiratory Rate 18 02/20/19 09:21 Blood Pressure 102/73 02/20/19 09:21 O2 Sat by Pulse Oximetry (%) Laboratory Last Values WBC 8.7 K/mm3 (4.0-10.0) 02/19/19 10:10 RBC 3.89 M/mm3 (4.00-5.60) L 02/19/19 10:10 Hgb 13.4 GM/dL (11.7-16.9) 02/19/19 10:10 Hct 38.4 % (35.4-49) 02/19/19 10:10 MCV 98.7 fl (80-96) H 02/19/19 10:10 MCH 34.6 pg (25.7-33.7) H 02/19/19 10:10 MCHC 35.1 g/dl (32.0-35.9) 02/19/19 10:10 RDW 11.4 % (11.9-15.9) L 02/19/19 10:10 Plt Count 203 K/MM3 (134-434) D 02/19/19 10:10 MPV 7.6 fl (7.5-11.1) 02/19/19 10:10 Sodium 134 mmol/L (136-145) L 02/19/19 10:10 Potassium 4.0 mmol/L (3.5-5.1) 02/19/19 10:10 Chloride 99 mmol/L (98-107) 02/19/19 10:10 Carbon Dioxide 28 mmol/L (21-32) 02/19/19 10:10 Anion Gap 7 MMOL/L (8-16) L 02/19/19 10:10 BUN 13.7 mg/dL (7-18) 02/19/19 10:10 Creatinine 0.9 mg/dL (0.55-1.3) 02/19/19 10:10 Est GFR (CKD-EPI)AfAm 114.21 02/19/19 10:10 Est GFR (CKD-EPI)NonAf 98.54 02/19/19 10:10 Random Glucose 79 mg/dL (74-106) 02/19/19 10:10 Calcium 8.8 mg/dL (8.5-10.1) 02/19/19 10:10 Total Bilirubin 0.5 mg/dL (0.2-1) 02/19/19 10:10 AST 93 U/L (15-37) H 02/19/19 10:10 ALT 63 U/L (13-61) H 02/19/19 10:10 Alkaline Phosphatase 110 U/L (45-117) 02/19/19 10:10 Total Protein 9.3 g/dl (6.4-8.2) H 02/19/19 10:10 Albumin 3.1 g/dl (3.4-5.0) L 02/19/19 10:10 Lipase 231 U/L (73-393) 02/19/19 10:10 RPR Titer Nonreactive (NONREACTIVE) 02/19/19 10:10 lab noted ate 90% breakfast Assessment: 02/20/19 11:40 alcohol withdrawal sx alert oriented x 3 speech coherently goal directed Plan: continue librium detox regimen
[2019-02-20] MEDS: NICOTINE 21 MG/24 HOURS TOPICAL PATCH TD SCH (10:51)
[2019-02-20] MEDS: PRENATAL VITAMINS W/ FOLIC ACID TABLET (FP) PO SCH (10:52)
[2019-02-20] MEDS: METHOCARBAMOL 500 MG TABLET PO PRN (10:52)
[2019-02-20] MEDS: amLODIPine BESYLATE 5 MG TABLET (FP) PO SCH (10:52)
--- NOTE | 2019-02-20 11:18 | CONSULT ---
[facility] Psychiatric Consult - Data Date of interview: 02/20/19 Admission source: [facility] Identifying data: Patient is taken to office for psychiatric interview. Mr Lindsey became argumentative, derogatory to life underwriter and refused to answer questions. " The answers are in my records. Why don't you check them ? ". Patient left consultation room. Witnessed by medical students.
[2019-02-20] MEDS: THIAMINE HCL 100 MG TABLET (FP) PO SCH (22:26)
[2019-02-20] MEDS: MELATONIN 5 MG TABLETS PO PRN (22:26)
[2019-02-21] MEDS: chlordiazePOXIDE HCL 25 MG CAPSULE PO SCH ×4 (06:33→22:13)
[2019-02-21] MEDS: NICOTINE 21 MG/24 HOURS TOPICAL PATCH TD SCH (10:16)
[2019-02-21] MEDS: amLODIPine BESYLATE 5 MG TABLET (FP) PO SCH (10:17)
[2019-02-21] MEDS: hydrOXYzine PAMOATE 25 MG CAPSULE (FP) PO PRN (10:17)
[2019-02-21] MEDS: PRENATAL VITAMINS W/ FOLIC ACID TABLET (FP) PO SCH (10:17)
[2019-02-21] MEDS: METHOCARBAMOL 500 MG TABLET PO PRN (10:17)
--- NOTE | 2019-02-21 12:46 | PN ---
[facility] CIWA - CIWA Score Nausea/Vomitin-Mild Nausea/No Vomiting Muscle Tremors: 2 Anxiety: 3 Agitation: 2 Paroxysmal Sweats: 2 Orientation: 0-Oriented Tacttile Disturbances: 0-None Auditory Disturbances: 0-None Visual Disturbances: 0-None Headache: 0-None Present CIWA-Ar Total Score: 10 [facility] Progress Note (SOAP) Subjective: ate 90% breakfast 70% lunch today doing well with libirum detox regimen ambulating on hallway limited conversation with staff irritable at time Objective: 02/21/19 12:45 Vital Signs Temperature 97.9 F 02/21/19 09:19 Pulse Rate 93 H 02/21/19 09:19 Respiratory Rate 20 02/21/19 09:19 Blood Pressure 109/75 02/21/19 09:19 O2 Sat by Pulse Oximetry (%) Laboratory Last Values WBC 8.7 K/mm3 (4.0-10.0) 02/19/19 10:10 RBC 3.89 M/mm3 (4.00-5.60) L 02/19/19 10:10 Hgb 13.4 GM/dL (11.7-16.9) 02/19/19 10:10 Hct 38.4 % (35.4-49) 02/19/19 10:10 MCV 98.7 fl (80-96) H 02/19/19 10:10 MCH 34.6 pg (25.7-33.7) H 02/19/19 10:10 MCHC 35.1 g/dl (32.0-35.9) 02/19/19 10:10 RDW 11.4 % (11.9-15.9) L 02/19/19 10:10 Plt Count 203 K/MM3 (134-434) D 02/19/19 10:10 MPV 7.6 fl (7.5-11.1) 02/19/19 10:10 Sodium 134 mmol/L (136-145) L 02/19/19 10:10 Potassium 4.0 mmol/L (3.5-5.1) 02/19/19 10:10 Chloride 99 mmol/L (98-107) 02/19/19 10:10 Carbon Dioxide 28 mmol/L (21-32) 02/19/19 10:10 Anion Gap 7 MMOL/L (8-16) L 02/19/19 10:10 BUN 13.7 mg/dL (7-18) 02/19/19 10:10 Creatinine 0.9 mg/dL (0.55-1.3) 02/19/19 10:10 Est GFR (CKD-EPI)AfAm 114.21 02/19/19 10:10 Est GFR (CKD-EPI)NonAf 98.54 02/19/19 10:10 Random Glucose 79 mg/dL (74-106) 02/19/19 10:10 Calcium 8.8 mg/dL (8.5-10.1) 02/19/19 10:10 Total Bilirubin 0.5 mg/dL (0.2-1) 02/19/19 10:10 AST 93 U/L (15-37) H 02/19/19 10:10 ALT 63 U/L (13-61) H 02/19/19 10:10 Alkaline Phosphatase 110 U/L (45-117) 02/19/19 10:10 Total Protein 9.3 g/dl (6.4-8.2) H 02/19/19 10:10 Albumin 3.1 g/dl (3.4-5.0) L 02/19/19 10:10 Lipase 231 U/L (73-393) 02/19/19 10:10 RPR Titer Nonreactive (NONREACTIVE) 02/19/19 10:10 lab noted anxious about no ultrasound while in the detox "I am here for stomach ultrasond" Assessment: 02/21/19 12:45 alcohol withdrawal sx alert steady gait tolerate food and fluid well denies pain Plan: continue libirum detox regimen
[2019-02-21] MEDS: THIAMINE HCL 100 MG TABLET (FP) PO SCH (22:13)
[2019-02-21] MEDS: MELATONIN 5 MG TABLETS PO PRN (22:14)
[2019-02-22] MEDS ORDERED: chlordiazePOXIDE HCL 10 MG CAPSULE PO PRN
[2019-02-22] MEDS: chlordiazePOXIDE HCL 10 MG CAPSULE PO SCH ×4 (05:53→22:23)
[2019-02-22] MEDS: NICOTINE 21 MG/24 HOURS TOPICAL PATCH TD SCH (10:14)
[2019-02-22] MEDS: amLODIPine BESYLATE 5 MG TABLET (FP) PO SCH (10:14)
[2019-02-22] MEDS: PRENATAL VITAMINS W/ FOLIC ACID TABLET (FP) PO SCH (10:14)
--- NOTE | 2019-02-22 16:40 | PN ---
[facility] CIWA - CIWA Score Nausea/Vomitin-No Nausea/No Vomiting Muscle Tremors: 2 Anxiety: 4-Mod. Anxious/Guarded Agitation: 3 Paroxysmal Sweats: No Perspiration Orientation: 0-Oriented Tacttile Disturbances: 1-Very Mild Itch/Numbness Auditory Disturbances: 0-None Visual Disturbances: 0-None Headache: 0-None Present CIWA-Ar Total Score: 10 [facility] Progress Note (SOAP) Subjective: Anxious, Tremors, Interrupted sleep. Objective: PATIENT PATIENT A & O X 3, OBSERVED AMBULATING ON UNIT UNASSISTED. IN NO ACUTE DISTRESS. 02/22/19 16:41 Vital Signs Temperature 97.7 F 02/22/19 13:07 Pulse Rate 84 02/22/19 13:07 Respiratory Rate 18 02/22/19 13:07 Blood Pressure 132/84 02/22/19 13:07 O2 Sat by Pulse Oximetry (%) Laboratory Tests 02/19/19 02/19/19 02/19/19 10:10 10:10 10:10 WBC 8.7 RBC 3.89 L Hgb 13.4 Hct 38.4 MCV 98.7 H MCH 34.6 H MCHC 35.1 RDW 11.4 L Plt Count 203 D MPV 7.6 Sodium 134 L Potassium 4.0 Chloride 99 Carbon Dioxide 28 Anion Gap 7 L BUN 13.7 Creatinine 0.9 Est GFR (CKD-EPI)AfAm 114.21 Est GFR (CKD-EPI)NonAf 98.54 Random Glucose 79 Calcium 8.8 Total Bilirubin 0.5 AST 93 H ALT 63 H Alkaline Phosphatase 110 Total Protein 9.3 H Albumin 3.1 L Lipase 231 RPR Titer Nonreactive LABS NOTED. PATIENT HAS HAD ELEVATED AST LEVELS ON PREVIOUS ADMISSIONS. 02/22/19 16:43 Assessment: 02/22/19 16:42 WITHDRAWAL SYMPTOMS. ELEVATED AST LEVEL. Plan: CONTINUE DETOX. INCREASE DAILY PO WATER INTAKE. PATIENT REPORTS INTERMITTENT DISCOMFORT ON RIGHT SIDE OF ABDOMEN (LOWER RIBCAGE AREA). ON PREVIOUS ADMISSIONS, PATIENT HAS PREVIOUSLY REPORTS HISTORY OF ABDOMINAL DISCOMFORT IN VARYING LOCATIONS. HE HAS ALSO REPORTED A HISTORY OF PANCREATITIS AND OF LIVER DISEASE (INCLUDING HEPATITIS C). PATIENT HAS PREVIOUSLY BEEN ADVISED TO CONSULT HIS PRIMARY CARE MEDICAL PROVIDER FOR THESE MATTERS. HOWEVER, PATIENT REPORTS THAT HE HAS NOT YET DONE SO. PATIENT DENIES NAUSEA/VOMITING/DIARRHEA/CONSTIPATION. PATIENT AGAIN ADVISED TO CONSULT MUSIC WRITER SOON POSSIBLE AFTER DISCHARGE FROM DETOX UNIT FUR FURTHER MEDICAL EVALUATION OF THE ABOVE-MENTIONED MATTERS AND TO IMMEDIATELY NOTIFY MEDICAL / NURSING STAFF SHOULD ABDOMINAL DISCOMFORT BECOME MORE SEVERE AT ANY TIME. PATIENT VERBALIZED UNDERSTANDING OF RECOMMENDATIONS.
[2019-02-22] MEDS ORDERED: guaiFENesin 200 MG/10 ML 10 ML UNIT-DOSE CUPS PO PRN (20:58)
[2019-02-22] MEDS: THIAMINE HCL 100 MG TABLET (FP) PO SCH (22:23)
[2019-02-22] MEDS: MELATONIN 5 MG TABLETS PO PRN (22:23)
[2019-02-23] MEDS: chlordiazePOXIDE HCL 10 MG CAPSULE PO SCH ×2 (05:20→17:41)
[2019-02-23] MEDS: NICOTINE 21 MG/24 HOURS TOPICAL PATCH TD SCH (10:24)
[2019-02-23] MEDS: PRENATAL VITAMINS W/ FOLIC ACID TABLET (FP) PO SCH (10:25)
[2019-02-23] MEDS: amLODIPine BESYLATE 5 MG TABLET (FP) PO SCH (10:25)
[2019-02-23] MEDS: METHOCARBAMOL 500 MG TABLET PO PRN ×2 (10:26→22:09)
[2019-02-23] MEDS: VITAMINS A AND D TOPICAL OINTMENT 60 GM TUBE TP SCH ×2 (13:28→18:08)
--- NOTE | 2019-02-23 15:44 | PN ---
[facility] CIWA - CIWA Score Nausea/Vomitin (Stomach Cramping.) Muscle Tremors: None Anxiety: 3 Agitation: 3 Paroxysmal Sweats: No Perspiration Orientation: 0-Oriented Tacttile Disturbances: 0-None Auditory Disturbances: 0-None Visual Disturbances: 1-Very Mild Sensitivity Headache: 0-None Present CIWA-Ar Total Score: 9 [facility] Progress Note (SOAP) Subjective: Anxious, Stomach Cramping, Interrupted Sleep. Patient reports That Current withdrawal Detox Symptoms in General Have Subsided in Severity. Objective: PATIENT A & O X 3, OBSERVED AMBULATING ON UNIT UNASSISTED. IN NO ACUTE DISTRESS. 02/23/19 15:43 Vital Signs Temperature 97.7 F 02/23/19 13:09 Pulse Rate 70 02/23/19 13:09 Respiratory Rate 18 02/23/19 13:09 Blood Pressure 104/66 02/23/19 13:09 O2 Sat by Pulse Oximetry (%) Laboratory Tests 02/19/19 02/19/19 02/19/19 10:10 10:10 10:10 WBC 8.7 RBC 3.89 L Hgb 13.4 Hct 38.4 MCV 98.7 H MCH 34.6 H MCHC 35.1 RDW 11.4 L Plt Count 203 D MPV 7.6 Sodium 134 L Potassium 4.0 Chloride 99 Carbon Dioxide 28 Anion Gap 7 L BUN 13.7 Creatinine 0.9 Est GFR (CKD-EPI)AfAm 114.21 Est GFR (CKD-EPI)NonAf 98.54 Random Glucose 79 Calcium 8.8 Total Bilirubin 0.5 AST 93 H ALT 63 H Alkaline Phosphatase 110 Total Protein 9.3 H Albumin 3.1 L Lipase 231 RPR Titer Nonreactive LABS NOTED. Assessment: 02/23/19 15:44 WITHDRAWAL SYMPTOMS. ELEVATED AST LEVEL. Plan: CONTINUE DETOX. PATIENT SCHEDULED FOR D/C FROM DETOX UNIT TOMORROW.
[2019-02-23] MEDS: THIAMINE HCL 100 MG TABLET (FP) PO SCH (22:08)
[2019-02-23] MEDS: MELATONIN 5 MG TABLETS PO PRN (22:09)
[2019-02-24] MEDS: VITAMINS A AND D TOPICAL OINTMENT 60 GM TUBE TP SCH ×2 (00:08→05:24)
[2019-02-24] MEDS ORDERED: chlordiazePOXIDE HCL 10 MG CAPSULE PO ONE (05:00)
[2019-02-24] MEDS: METHOCARBAMOL 500 MG TABLET PO PRN (05:24)
[2019-02-24 09:18] VITALS: BP 124/91; PULSE 81; TEMP 98.4
[2019-02-24] MEDS: PRENATAL VITAMINS W/ FOLIC ACID TABLET (FP) PO SCH (10:26)
[2019-02-24] MEDS: amLODIPine BESYLATE 5 MG TABLET (FP) PO SCH (10:26)
[2019-02-24] MEDS: NICOTINE 21 MG/24 HOURS TOPICAL PATCH TD SCH (10:26)
--- NOTE | 2019-02-24 13:05 | DS ---
[facility] Detox Discharge Summary Admission Date: 02/19/19 Discharge Date: 02/24/19 - History Present History: Alcohol Dependence Additional Comments: 53 years old male admitted on 02/19/19 for acute alcohol withdrawal sx management doing well with librum detox regimen no complication through out the detox stay negative chest x ray fatty liver from abdominal ct without contract strong recommend sobriety recovery Pertinent Past History: fatty liver observed patient sitting on the edge of the bed eating breakfast no nause no vomiting denies abdominal pain - Physical Exam Results Vital Signs: Vital Signs Temperature 98.4 F 02/24/19 09:18 Pulse Rate 81 02/24/19 09:18 Respiratory Rate 18 02/24/19 09:18 Blood Pressure 124/91 02/24/19 09:18 O2 Sat by Pulse Oximetry (%) Pertinent Admission Physical Exam Findings: alcohol with drawal sx Laboratory Last Values WBC 8.7 K/mm3 (4.0-10.0) 02/19/19 10:10 RBC 3.89 M/mm3 (4.00-5.60) L 02/19/19 10:10 Hgb 13.4 GM/dL (11.7-16.9) 02/19/19 10:10 Hct 38.4 % (35.4-49) 02/19/19 10:10 MCV 98.7 fl (80-96) H 02/19/19 10:10 MCH 34.6 pg (25.7-33.7) H 02/19/19 10:10 MCHC 35.1 g/dl (32.0-35.9) 02/19/19 10:10 RDW 11.4 % (11.9-15.9) L 02/19/19 10:10 Plt Count 203 K/MM3 (134-434) D 02/19/19 10:10 MPV 7.6 fl (7.5-11.1) 02/19/19 10:10 Sodium 134 mmol/L (136-145) L 02/19/19 10:10 Potassium 4.0 mmol/L (3.5-5.1) 02/19/19 10:10 Chloride 99 mmol/L (98-107) 02/19/19 10:10 Carbon Dioxide 28 mmol/L (21-32) 02/19/19 10:10 Anion Gap 7 MMOL/L (8-16) L 02/19/19 10:10 BUN 13.7 mg/dL (7-18) 02/19/19 10:10 Creatinine 0.9 mg/dL (0.55-1.3) 02/19/19 10:10 Est GFR (CKD-EPI)AfAm 114.21 02/19/19 10:10 Est GFR (CKD-EPI)NonAf 98.54 02/19/19 10:10 Random Glucose 79 mg/dL (74-106) 02/19/19 10:10 Calcium 8.8 mg/dL (8.5-10.1) 02/19/19 10:10 Total Bilirubin 0.5 mg/dL (0.2-1) 02/19/19 10:10 AST 93 U/L (15-37) H 02/19/19 10:10 ALT 63 U/L (13-61) H 02/19/19 10:10 Alkaline Phosphatase 110 U/L (45-117) 02/19/19 10:10 Total Protein 9.3 g/dl (6.4-8.2) H 02/19/19 10:10 Albumin 3.1 g/dl (3.4-5.0) L 02/19/19 10:10 Lipase 231 U/L (73-393) 02/19/19 10:10 RPR Titer Nonreactive (NONREACTIVE) 02/19/19 10:10 lab noted - Treatment Hospital Course: Detox Protocol Followed, Detoxed Safely, Responded well, Discharged Condition Good, Rehab Referral Accepted Patient has Accepted a Rehab Referral to: [facility] - Medication Discharge Medications: Ambulatory Orders traZODone HCL [Desyrel -] 100 mg PO HS #30 tablet 05/30/18 Amlodipine Besylate 5 mg PO DAILY 01/29/19 - Diagnosis (1) Alcohol dependence with uncomplicated withdrawal Current Visit: Yes Status: Acute (2) Hypertension Current Visit: Yes Status: Chronic Qualifiers: Hypertension type: essential hypertension Qualified Code(s): I10 - Essential (primary) hypertension (3) Hep C w/ coma, chronic Current Visit: Yes Status: Chronic (4) Nicotine dependence Current Visit: Yes Status: Acute Qualifiers: Nicotine product type: cigarettes Substance use status: in withdrawal Qualified Code(s): F17.213 - Nicotine dependence, cigarettes, with withdrawal - AMA Did Patient Leave Against Medical Advice: No CIWA Score - CIWA Score Nausea/Vomitin-Mild Nausea/No Vomiting (Stomach Cramping.) Muscle Tremors: None Anxiety: 2 Agitation: 2 Paroxysmal Sweats: No Perspiration Orientation: 0-Oriented Tacttile Disturbances: 0-None Auditory Disturbances: 0-None Visual Disturbances: 0-None Headache: 0-None Present CIWA-Ar Total Score: 5
== END 2019-02-24 11:30 | disposition home or self-care (01) | DRG 773 ==
LOC: YASAS 08:25 → Y3N 10:48
PROVIDERS: ADMIT Surgery; ATTEND Surgery
PROC: HZ2ZZZZ Detoxification Services for Substance Abuse Treatment (ICD-10-PCS; principal; 2019-02-19)
PROC: HZ2ZZZZ Detoxification Services for Substance Abuse Treatment (ICD-10-PCS; 2019-02-19)
DX: F10.230 Alcohol dependence with withdrawal, uncomplicated (principal); F11.23 Opioid dependence with withdrawal; F14.10 Cocaine abuse, uncomplicated; F17.213 Nicotine dependence, cigarettes, with withdrawal; I10 Essential (primary) hypertension; B18.2 Chronic viral hepatitis C; K86.1 Other chronic pancreatitis; R94.5 Abnormal results of liver function studies; R73.03 Prediabetes; R10.31 Right lower quadrant pain; Z91.5 Personal history of self-harm
CPT/HCPCS: 36415; 71046-TC-FY; 80053; 83690; 85027; 86593

== ENCOUNTER 2019-03-12 01:24 | Emergency (ER) | payer OTHER ==
--- NOTE | 2019-03-12 03:21 | PDOC ---
History of Present Illness - General Stated Complaint: NAUSEA/VOMITING Time Seen by Provider: 03/12/19 03:21 History Source: Patient Exam Limitations: Intoxication - History of Present Illness Initial Comments: 53 year old male with PMH HTN, fentanyl abuse sent to ED from [facility] for observation while pt is intoxicated on fentanyl. They reported they cannot accept him in the current state. Pt reported no complaints. ROS General: denied fever, chills, generalized weakness. HEENT: denied sore throat, rhinorrhea, ear pain. Cardiovascular: denied chest pain, palpitations, syncope, diaphoresis. Respiratory: denied shortness of breath, cough, sputum production, hemoptysis. Gastrointestinal: denied abdominal pain, nausea, vomiting, diarrhea, constipation, blood in stool. Genitourinary: denied dysuria, increased urinary frequency, hematuria, urinary incontinence, flank pain. Back: denied back pain. Musculoskeletal: denied joint pain, muscle pain, joint swelling. Neurological: denied headache, dizziness, numbness, tingling, weakness. Integumentary: denied rash, laceration, abrasion. Hematologic/Lymphatic: denied bruising or bleeding. PE Constitutional: Well-nourished, Well-developed, appearing stated age. HEENT: head is normocephalic, atraumatic. EOMI. PERRLA. no posterior pharyngeal erythema.no tonsillar swelling or exudates bilaterally. uvula midline. no peritonsillar swelling, tenderness or abscess. no jaw tenderness or misalignment. Neck: supple. Full ROM. Cardiovascular: regular heart rhythm. no murmurs. no pericardial friction rub. Respiratory: clear to auscultation bilaterally. no crackles, rhonchi or wheezing. no stridor. Gastrointestinal: soft, flat. tenderness to palpation of RLQ. normal bowel sounds. no rebound, guarding, masses. Extremities: peripheral pulses intact. no lower extremity edema. Neurological: CN 2-12 grossly intact. moves all four extremities. Psych: awake, alert, oriented x3. follows commands. answers questions appropriately. Past History - Past Medical History Allergies/Adverse Reactions: Allergies Allergy/AdvReac Type Severity Reaction Status Date / Time amoxicillin Allergy Severe Itching Verified 03/12/19 09:53 morphine Allergy Severe Verified 03/12/19 09:53 Home Medications: Ambulatory Orders Amlodipine Besylate 5 mg PO DAILY 01/29/19 HTN: Yes Liver Disease: Yes (HCV) - Reproductive History Testicular Surgery: No - Suicide/Smoking/Psychosocial Hx Smoking History: Current every day smoker Have you smoked in the past 12 months: Yes Number of Cigarettes Smoked Daily: 40 Cigars Per Day: 0 'Breaking Loose' booklet given: 02/19/19 Hx Alcohol Use: Yes Drug/Substance Use Hx: Yes Substance Use Type: Alcohol, Cocaine, Heroin Hx Substance Use Treatment: Yes ED Treatment Course - LABORATORY CBC & Chemistry Diagram: 03/12/19 03:29 03/12/19 03:29 Medical Decision Making - Medical Decision Making 53 year old male with above PMH sent to ED from [facility] for Detox from Fentanyl intoxication. Labs ordered: CBC, CMP, acetaminophen, salicyclate, coags, lipase Imaging ordered: CT abdomen/pelvis without IV contrast Medications ordered: normal saline bolus 1000 cc once 03/12/19 04:04 CBC WBC 6.3 K/mm3 (4.0-10.0) 03/12/19 03:29 RBC 3.86 M/mm3 (4.00-5.60) L 03/12/19 03:29 Hgb 12.8 GM/dL (11.7-16.9) 03/12/19 03:29 Hct 37.7 % (35.4-49) 03/12/19 03:29 MCV 97.7 fl (80-96) H 03/12/19 03:29 MCH 33.1 pg (25.7-33.7) 03/12/19 03:29 MCHC 33.9 g/dl (32.0-35.9) 03/12/19 03:29 RDW 12.8 % (11.9-15.9) D 03/12/19 03:29 Plt Count 137 K/MM3 (134-434) D 03/12/19 03:29 MPV 7.5 fl (7.5-11.1) 03/12/19 03:29 Absolute Neuts (auto) 1.1 K/mm3 (1.5-8.0) L 03/12/19 03:29 Neutrophils % 17.1 % (42.8-82.8) L D 03/12/19 03:29 Lymphocytes % 67.8 % (8-40) H 03/12/19 03:29 Monocytes % 7.9 % (3.8-10.2) 03/12/19 03:29 Eosinophils % 6.4 % (0-4.5) H 03/12/19 03:29 Basophils % 0.8 % (0-2.0) 03/12/19 03:29 Nucleated RBC % 0 % (0-0) 03/12/19 03:29 No leukocytosis. No anemia. MCV elevated. CMP Sodium 145 mmol/L (136-145) 03/12/19 03:29 Potassium 3.2 mmol/L (3.5-5.1) L 03/12/19 03:29 Chloride 106 mmol/L (98-107) 03/12/19 03:29 Carbon Dioxide 27 mmol/L (21-32) 03/12/19 03:29 Anion Gap 12 MMOL/L (8-16) 03/12/19 03:29 BUN 12.2 mg/dL (7-18) 03/12/19 03:29 Creatinine 0.7 mg/dL (0.55-1.3) 03/12/19 03:29 Est GFR (CKD-EPI)AfAm 126.64 03/12/19 03:29 Est GFR (CKD-EPI)NonAf 109.27 03/12/19 03:29 Random Glucose 132 mg/dL (74-106) H 03/12/19 03:29 Calcium 8.6 mg/dL (8.5-10.1) 03/12/19 03:29 Total Bilirubin 0.3 mg/dL (0.2-1) 03/12/19 03:29 AST 118 U/L (15-37) H 03/12/19 03:29 ALT 69 U/L (13-61) H 03/12/19 03:29 Alkaline Phosphatase 126 U/L (45-117) H 03/12/19 03:29 Total Protein 8.7 g/dl (6.4-8.2) H 03/12/19 03:29 Albumin 2.9 g/dl (3.4-5.0) L 03/12/19 03:29 Lipase 264 U/L (73-393) 03/12/19 03:29 Mild hypokalemia. No BLAINE. Transaminitis - hx of same. Total bili normal. Lipase wnl. Pending tox results, CT report. 03/12/19 04:53 Salicyclate and acetaminophen negative. 03/12/19 06:23 Lab called to add on ETOH level. Pt clinically sober, no longer drowsy, requesting discharge. 03/12/19 06:[address] report: FINDINGS: There is no bowel obstruction or inflammation. Scattered colon diverticula. Negative for diverticulitis or colitis. Normal appendix. No urinary tract stone or obstruction. Renal cysts noted. Liver may be borderline fatty. Normal spleen. Contracted gallbladder. Normal pancreas Normal adrenal glands. No free intraperitoneal air or free fluid. Osseous structures are intact. One or more of the following dose reduction techniques were used: automated exposure control, adjustment of the mA and/or kV according to patient size, use of iterative reconstructive technique. THIS DOCUMENT HAS BEEN ELECTRONICALLY SIGNED Daniel Fajardo MD 03/12/2019 06:04 Pt clinically sober, requesting to go to Detox. Security called to transport pt to Detox. 03/12/2019 07:00 Pt transported out of ED. *DC/Admit/Observation/Transfer Diagnosis at time of Disposition: Intoxication, Abdominal pain - Discharge Dispostion Disposition: HOME Condition at time of disposition: Stable Decision to Admit order: No - Referrals Referrals: Evelio Cruz [Primary Care Provider] - - Patient Instructions Printed Discharge Instructions: DI for Abdominal Pain-Adult, DI for Drug or Alcohol Withdrawal Additional Instructions: Follow up with your primary care doctor within 3 days. Return to the Emergency Department for chest pain, shortness of breath, vomiting , seizure, lightheadedness, vomiting blood, blood in stool or any other new, worsening or concerning symptoms. - Post Discharge Activity Forms/Work/School Notes: Back to Work
[2019-03-12] MEDS ORDERED: SODIUM CHLORIDE 1,000 ML IV STA (03:22)
--- NOTE | 2019-03-12 03:32 | PDOC ---
Attending Attestation - Resident Resident Name: Kailyn Peguero - ED Attending Attestation I have performed the following: I have examined & evaluated the patient, The case was reviewed & discussed with the resident, I agree w/resident's findings & plan - HPI HPI: 03/12/19 06:33 see resident hpi - Physicial Exam PE: 03/12/19 06:33 agree with resident exam - Medical Decision Making 03/12/19 06:34 53 yo male sent from detox intake with right sided abd pain CT abd/pelvis shows no acute abnormality plan for d/c back to intake
[2019-03-12 03:40] LABS: BASO % 0.8 % (0-2.0); EOS % 6.4 % (0-4.5); HEMATOCRIT 37.7 % (35.4-49); HEMOGLOBIN 12.8 GM/dL (11.7-16.9); LYMPH % 67.8 % (8-40); MCH 33.1 pg (25.7-33.7); MCHC 33.9 g/dl (32.0-35.9); MEAN CELL VOLUME 97.7 fl (80-96); MEAN PLT VOLUME 7.5 fl (7.5-11.1); MONO % 7.9 % (3.8-10.2); NEUT % 17.1 % (42.8-82.8); PLATELET COUNT 137 K/MM3 (134-434); RBC 3.86 M/mm3 (4.00-5.60); RDW 12.8 % (11.9-15.9); WHITE BLOOD COUNT 6.3 K/mm3 (4.0-10.0)
[2019-03-12 04:02] LABS: ALBUMIN 2.9 g/dl (3.4-5.0); BILIRUBIN,TOTAL 0.3 mg/dL (0.2-1); BLOOD UREA NITROGEN 12.2 mg/dL (7-18); CALCIUM 8.6 mg/dL (8.5-10.1); CREATININE 0.7 mg/dL (0.55-1.3); POTASSIUM 3.2 mmol/L (3.5-5.1); TOT PROT 8.7 g/dl (6.4-8.2)
[2019-03-12 04:03] LABS: INR 1.13 (0.83-1.09); PROTHROMBIN TIME (PATIENT) 13.4 SEC (9.7-13.0)
[2019-03-12 04:12] VITALS: BMI 32.3
[2019-03-12 07:11] VITALS: BP 140/99; PULSE 87; TEMP 97.3
[2019-03-12 07:20] LABS: ANISOCYTOSIS 0; HELMET CELLS 0; HOWELL-JOLLY BODIES 0; MACROCYTOSIS 0; OVALOCYTE 0; PLATELET ESTIMATE DECREASED; ROULEAU 0; SICKELED CELLS 0; TARGET CELLS 0; TEAR DROP CELLS 0; TOXIC GRANULATION 0
== END 2019-03-12 07:11 | disposition home or self-care (01) ==
LOC: JER 01:24
PROC: 3E0337Z Introduction of Electrolytic and Water Balance Substance into Peripheral Vein, Percutaneous Approach (ICD-10-PCS; principal; 2019-03-12)
DX: F11.229 Opioid dependence with intoxication, unspecified (principal); F10.220 Alcohol dependence with intoxication, uncomplicated; Y90.6 Blood alcohol level of 120-199 mg/100 ml; I10 Essential (primary) hypertension; B18.2 Chronic viral hepatitis C; Z88.0 Allergy status to penicillin; Z88.5 Allergy status to narcotic agent
CPT/HCPCS: 36415; 74176-TC; 80053; 80307; 83690; 85025; 85610; 85730; 96360; 99283-25; J7030

== ENCOUNTER 2019-03-12 08:30 | Inpatient (IN) | payer OTHER | END 2019-03-18 15:19 | disposition other institution (70) | LOC: YASAS 08:30 → Y6N 11:33 ==

== ENCOUNTER 2019-12-19 12:29 | Inpatient (IN) | payer OTHER ==
[2019-12-19 12:45] VITALS: BMI 27.3
[2019-12-19] MEDS ORDERED: LACTATED RINGERS SOLUTION 1000 ML INFUS.BAG IV ONE (13:19)
[2019-12-19] MEDS ORDERED: ACETAMINOPHEN 1000 MG/100 ML VIAL (NON FORMULARY) IVPB ONE (13:23)
--- NOTE | 2019-12-19 13:37 | PDOC ---
History of Present Illness - General Chief Complaint: Pain Stated Complaint: ABD PAIN Time Seen by Provider: 12/19/19 12:52 History Source: Patient, Old Records, Other ([facility] Detox Reports) Exam Limitations: No Limitations - History of Present Illness Initial Comments: 54 y/o male presenting to [facility] ER from [facility] Inpatient Detox for evaluation of upper abdominal pain. On arrival, the pt is complaining of diffuse upper abdominal pain with radiation to the left flank. Also complaining of an episode of vomiting and diarrhea. Described as dark in color. Started on iron supplements by [facility]. Believes his abdomen is more distended then normal. Further states that he has experienced this constellation of symptoms intermittently over the past six to ten years. 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 Tested negative for COVID-19 on Detox admission. Also tested negative for HIV and Syphilis serology. Pt at [facility] for EtOH detox. Last drink was two days ago. Believes he had a seizure a few weeks ago and that his talked him through the incident. Past History - Medical History Allergies/Adverse Reactions: Allergies Allergy/AdvReac Type Severity Reaction Status Date / Time amoxicillin Allergy Severe Itching Verified 12/19/19 12:45 morphine Allergy Severe Verified 12/19/19 12:45 peanut AdvReac Verified 12/19/19 12:45 tomato AdvReac Verified 12/19/19 12:45 Home Medications: Ambulatory Orders Amlodipine Besylate 5 mg PO DAILY 01/29/19 hydrOXYzine PAMOATE [Vistaril -] 50 mg PO QID PRN 03/18/19 Anemia: No Asthma: No Cancer: No Cardiac Disorders: No CVA: No COPD: No CHF: No Dementia: No Diabetes: No GI Disorders: No Disorders: No HTN: Yes (started on amlodipine in ER) Hypercholesterolemia: No Kidney Stones: No Liver Disease: Yes (hepatitis c) Seizures: No Thyroid Disease: No Comment:: Medical Hx: - EtOH Dependence - HCV, untreated - Schizoaffective disorder - HTN - H/o opioid, cocaine, and tobacco use disorders - Surgical History Abdominal Surgery: No Appendectomy: No Cardiac Surgery: No Cholecystectomy: No Lung Surgery: No Neurologic Surgery: No Orthopedic Surgery: No - Reproductive History Testicular Surgery: No - Psycho-Social/Smoking History Smoking History: Never smoked Have you smoked in the past 12 months: No Number of Cigarettes Smoked Daily: 40 If you are a former smoker, when did you quit?: 6 months ago Cigars Per Day: 0 Information on smoking cessation initiated: No 'Breaking Loose' booklet given: 03/12/19 - Substance Abuse Hx (Audit-C & DAST Scrn) How often the patient has a drink containing alcohol: 4 0r more times/wk Number of drinks the patient has on a typical day: 3 or 4 How often the patient has six or more drinks on one occasion: Daily or almost da jessica Score: In Men: 4 or > Positive; In Women: 3 or > Positive: 9 Screen Result (Pos requires Nsg. Audit-10AR): Positive In the last yr the pt used illegal drug/Rx for NonMed reason: No Score: Yes response is considered Positive: 0 Screen Result (Positive result requires Nsg. DAST-10): Negative Review of Systems - Review of Systems Able to Perform ROS?: Yes Comments:: 10 point review of systems completed. All systems negative except as noted above. *Physical Exam - Vital Signs Last Vital Signs Temp Pulse Resp BP Pulse Ox 97.7 F 83 18 123/84 100 12/19/19 12:42 12/19/19 12:42 12/19/19 12:42 12/19/19 12:42 12/19/19 12:42 - Physical Exam Vital signs and nursing notes reviewed. Constitutional- Nontoxic adult male in no acute distress or obvious discomfort. Found semi-fowlers on hospital bed. Head- Normocephalic. No obvious external signs of trauma. Eyes- Mild scleral icterus. Conjunctiva moist and not injected. Throat- Oral cavity and pharynx normal. No inflammation, swelling, exudate, or lesions. No tongue fasciculations. Neck- Supple, trachea is midline. Cardiovascular / Chest- Regular rate and regular rhythm. No murmur, rubs, clicks, or gallops. Peripheral pulses- radial pulses full. Respiratory- Breathing unlabored. Speaking in multi-word responses without pausing. Equal chest rise and fall. Clear to auscultation bilaterally. No stridor, no wheezing, no rhonchi. Gastrointestinal- Pt indicates generalized upper abdominal discomfort. No grimace, rebound, or guarding on palpation. Globally, abdomen is mildly distended but soft. No fluid wave appreciated. No captus medusa. No pulsatile masses. No overlying skin lesions or obvious signs of trauma. Male Rectal: Good sphincter tone with no anal, perineal or rectal lesions. Prostate is not tender, enlarged, boggy, or nodular. Stool light brown. No paulina melena or hematochezia. WEI Fang chaperoned exam. Neuro- Alert and oriented x4. Moving all four extremities spontaneously. No facial asymmetry. No slurred speech. No asterixis. Hands minimally tremulous when outstretched. Skin- Warm, dry, and intact. No spider angiomas. Psych- Affect- flat Mood- normal. Speech was non-labored, non-pressured. ED Treatment Course - LABORATORY CBC & Chemistry Diagram: 12/19/19 13:25 12/19/19 13:25 - RADIOLOGY Radiology Studies Ordered: Category Date Time Status ABDOMEN & PELVIS CT WITH CONTR [CT] Stat CT Scan 12/19/19 13:17 Ordered Medical Decision Making - Medical Decision Making 59 y/o male presenting with acute on chronic, intermittent diffuse upper abdominal pain. Afebrile. Triage vitals unremarkable for hypotension or tachycardia. Normoxic on room air. Physical exam as described above. No acute abdominal signs. Low suspicion for acute surgical abdomen. Differential includes hepatitis vs hepatocellular CA 2/2 untreated HCV vs pancreatitis vs diverticulosis. Lipase not significantly elevated. Low suspicion for acute pancreatitis. SFOB positive. Noted precipitous drop in H/H compared to 2019 values in [facility]. Ordered abdominal CTA to evaluate for source of GI bleed. CTA revealed perisplenic and mesenteric varices. Suspect this is the source of the bleeding. Noted hematuria on UA. No gross intrinsic or extrinsic abnormality or prostate enlargement noted on CT scan. Ordered PT/INR to evaluate for coagulation status. Coags mildly elevated. Low suspicion for cause of acute bleeding. Will admit pt to the hospital for further evaluation with concern for poor medical follow up in setting of further 19 Dec 2019 17:24 PM Telephone discussion with Dr. Harrell of [facility] Hospitalist [facility]. Verbally appraised of the pts HPI, ED course, and current plan of management. Will admit pt to med/surg. No further orders requested. Pt COVID negative on 17 December 2019 at [facility]. Sarthak Germain M.D., PGY2 Emergency Medicine Resident Case discussed with ED Attending Dr. Patricio Discharge - Discharge Information Problems reviewed: Yes Clinical Impression/Diagnosis: Upper abdominal pain, Positive occult stool blood test, Macrocytic anemia, Alcohol abuse with alcohol-induced disorder, Mesenteric varices, Transaminitis Hematuria Qualifiers: Hematuria type: unspecified type Qualified Code(s): R31.9 - Hematuria, unspecified Condition: Stable - Admission Yes - Follow up/Referral Referrals: Evelio Cruz [Primary Care Provider] - - Patient Discharge Instructions - Post Discharge Activity
[2019-12-19 13:47] LABS: BASO % 0.9 % (0-2.0); EOS % 3.3 % (0-4.5); HEMOGLOBIN 9.5 GM/dL (11.7-16.9); LYMPH % 31.2 % (8-40); MEAN CELL VOLUME 108.9 fl (80-96); MEAN PLT VOLUME 8.1 fl (7.5-11.1); MONO % 13.6 % (3.8-10.2); PLATELET COUNT 138 K/MM3 (134-434); RBC 2.57 M/mm3 (4.00-5.60); RDW 13.9 % (11.9-15.9); WHITE BLOOD COUNT 6.2 K/mm3 (4.0-10.0)
[2019-12-19] MEDS ORDERED: ACETAMINOPHEN INJECTION 100 ML IVPB ONE (13:54)
[2019-12-19 14:21] LABS: ALBUMIN 1.6 g/dl (3.4-5.0); BILIRUBIN,TOTAL 2.4 mg/dL (0.2-1); BLOOD UREA NITROGEN 13.7 mg/dL (7-18); CALCIUM 8.7 mg/dL (8.5-10.1); CREATININE 1.1 mg/dL (0.55-1.3); PHOSPHOROUS 4.4 mg/dL (2.5-4.9); POTASSIUM 4.5 mmol/L (3.5-5.1); TOT PROT 9.6 g/dl (6.4-8.2)
[2019-12-19 15:07] LABS: EPI CELLS 5 /uL (0-25.1); HYALINE CASTS 1 /uL (0-3.1); PH,URINE 6.5 (5.0-8.0); URINE APPEARANCE CLEAR; URINE BACTERIA 20 /uL (0-1359); URINE BILIRUBIN 1+ (NEGATIVE); URINE COLOR DK YELLOW; URINE GLUCOSE (UA) NEGATIVE (NEGATIVE); URINE KETONE NEGATIVE (NEGATIVE); URINE LEUK ESTERASE NEGATIVE (NEGATIVE); URINE NITRITE NEGATIVE (NEGATIVE); URINE PROTEIN 1+ (NEGATIVE); URINE RBC 1595 /uL (0-23.9); URINE WBC 27 /uL (0-25.8)
[2019-12-19] MEDS ORDERED: HYDROmorphone HCL CARPU-JECT 2 MG/1 ML DISP.SYRIN IVPUSH ONE (16:01)
[2019-12-19] MEDS ORDERED: HYDROmorphone HCl 2 MG/ML VIAL ONE (16:05)
--- NOTE | 2019-12-19 16:44 | PDOC ---
Documentation entered by Nola Mtz SCRIBE, acting as scribe for Chris Patricio MD. Chris Patricio MD: This documentation has been prepared by the Smith randle Nirvannie, SCRIBE, under my direction and personally reviewed by me in its entirety. I confirm that the documentation accurately reflects all work, treatment, procedures, and medical decision making performed by me. Attending Attestation - Resident Resident Name: Sarthak Germain - ED Attending Attestation I have performed the following: I have examined & evaluated the patient, The case was reviewed & discussed with the resident, I agree w/resident's findings & plan, Exceptions are as noted - HPI HPI: 12/19/19 13:56 The patient is a 54 year old male with a significant past medical history of substance abuse (? liter bourbon daily, last drink 12/16) who presents to the ED via EMS from detox with diffuse upper abdominal pain with radiation to the left flank. Negative COVID-19 on 12/16. Allergies: Amoxicillin, Morphine, peanut, tomato - Physicial Exam PE: 12/19/19 18:46 Vitals: Triage Vital signs reviewed General Appearance: No acute distress, well nourished well developed, Head: Atraumatic, Cardiac: Regular rate and rhythym, no murmurs, no rubs, no gallops, Lungs: Clear to auscultation bilateral, good air movement bilaterally, Abdomen: Soft, + distended but not tense, normal bowel sounds, diffuse tenderness to palpation but no rebound no guarding Extremities: Full range of motion to all extremities, no cyanosis, clubbing, or edema Skin: Warm and dry, no rashes or lesions, no rash, no petechiae Psych: Normal mood, normal affect - Medical Decision Making 12/19/19 18:47 54 years old with past medical history significant for EtOH abuse, hep C untreated presents to the ED with weakness and abdominal distention labs notable for downtrending hemoglobin hematocrit guaiac positive stool and hematuria CT abdomen pelvis demonstrates evidence of varices but no evidence of acute active bleeding Given downtrending H&H hematuria and positive fecal occult will admit to medicine for further management trending H&H blood transfusion if indicated and GI consultation. Discharge - Discharge Information Problems reviewed: Yes Clinical Impression/Diagnosis: Upper abdominal pain, Positive occult stool blood test, Macrocytic anemia, Alcohol abuse with alcohol-induced disorder, Mesenteric varices, Transaminitis Hematuria Qualifiers: Hematuria type: unspecified type Qualified Code(s): R31.9 - Hematuria, unspecified Condition: Stable - Follow up/Referral - Patient Discharge Instructions - Post Discharge Activity
[2019-12-19 17:23] LABS: INR 1.59 (0.83-1.09); PROTHROMBIN TIME (PATIENT) 18.8 SEC (9.7-13.0)
[2019-12-19 17:25] LABS: ACTIVATED PTT 39.9 SECONDS (25.2-36.5)
--- NOTE | 2019-12-19 18:04 | HP ---
Admitting History and Physical - Admission Chief Complaint: Epigastric pain History of Present Illness: 54 year old male with a significant past medical history of substance abuse (? liter bourbon daily, last drink 12/16) who presents to the ED via EMS from detox with diffuse upper abdominal pain with radiation to the left flank. No associated nausea, vomiting, or diarrhea. No fevers or chills. Negative COVID-19 on 12/16. ED course: WBC=6.2 Hgb/Hct=9.5/28 Hgb in March=13 PT 18.8 INR=1.59 PTT 39.9 Stool Occult: positive CT AngioAbd/pelvis: no definite abnormal contrast accumulation. Hepatic cirrhosis. Interval development small to moderate amount of ascites Patient was given tylenol 1000mg IV LR 1000ml, Dilaudid 0.5mg IV Allergies: Amoxicillin, Morphine, peanut, tomato History Source: Patient Limitations to Obtaining History: No Limitations - Past Medical History Cardiovascular: Yes: HTN Gastrointestinal: Yes: Other (Cirrhosis) Psych: Yes: Bipolar, Schizophrenia - Past Surgical History Past Surgical History: Yes: None - Smoking History Smoking history: Never smoked Have you smoked in the past 12 months: No Aproximately how many cigarettes per day: 40 If you are a former smoker, when did you quit?: 6 months ago - Alcohol/Substance Use Hx Alcohol Use: Yes - Social History ADL: Independent 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, 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 History of Recent Travel: No Home Medications - Allergies Allergies/Adverse Reactions: Allergies Allergy/AdvReac Type Severity Reaction Status Date / Time amoxicillin Allergy Severe Itching Verified 12/19/19 12:45 morphine Allergy Severe Verified 12/19/19 12:45 peanut AdvReac Verified 12/19/19 12:45 tomato AdvReac Verified 12/19/19 12:45 - Home Medications Home Medications: Ambulatory Orders Amlodipine Besylate 5 mg PO DAILY 01/29/19 hydrOXYzine PAMOATE [Vistaril -] 50 mg PO QID PRN 03/18/19 Family Medical History Family History: Denies Review of Systems - Review of Systems Constitutional: reports: Weakness Eyes: reports: No Symptoms HENT: reports: No Symptoms Neck: reports: No Symptoms Cardiovascular: reports: No Symptoms Respiratory: reports: No Symptoms Gastrointestinal: reports: Abdominal Pain Genitourinary: reports: No Symptoms Breasts: reports: No Symptoms Reported Musculoskeletal: reports: No Symptoms Integumentary: reports: No Symptoms Neurological: reports: No Symptoms Endocrine: reports: No Symptoms Hematology/Lymphatic: reports: No Symptoms Psychiatric: reports: No Symptoms Physical Examination Vital Signs: Vital Signs Temperature 97.7 F 12/19/19 12:42 Pulse Rate 83 12/19/19 12:42 Respiratory Rate 18 12/19/19 12:42 Blood Pressure 123/84 12/19/19 12:42 O2 Sat by Pulse Oximetry (%) 100 12/19/19 12:42 Constitutional: Yes: Well Nourished, No Distress Eyes: Yes: WNL, Conjunctiva Clear, EOM Intact HENT: Yes: WNL, Atraumatic, Normocephalic Neck: Yes: WNL, Supple, Trachea Midline Cardiovascular: Yes: WNL, Regular Rate and Rhythm Respiratory: Yes: WNL, Regular, CTA Bilaterally Gastrointestinal: Yes: WNL, Normal Bowel Sounds, Soft Musculoskeletal: Yes: WNL Extremities: Yes: WNL Edema: No Edema: LUE: 2+, RUE: 2+ Peripheral Pulses WNL: Yes Integumentary: Yes: WNL Neurological: Yes: WNL, Alert, Oriented ...Motor Strength: WNL Psychiatric: Yes: WNL, Alert, Oriented Labs: CBC, BMP 12/19/19 13:25 12/19/19 13:25 Imaging - Results Cat Scan: Pending (No definite abnormal contrast accumulation. Hepatic cirrhosis/interval development small to moderate amount ascites) Assessment/Plan 54 year old male with a significant past medical history of substance abuse (? liter bourbon daily, last drink 12/16) who presents to the ED via EMS from detox with diffuse upper abdominal pain with radiation to the left flank. No associated nausea, vomiting, or diarrhea. No fevers or chills. Negative COVID-19 on 12/16. ED course: WBC=6.2 Hgb/Hct=9.5/28 Hgb in March=13 PT 18.8 INR=1.59 PTT 39.9 Stool Occult: positive CT AngioAbd/pelvis: no definite abnormal contrast accumulation. Hepatic cirrhosis. Interval development small to moderate amount of ascites Patient was given tylenol 1000mg IV LR 1000ml, Dilaudid 0.5mg IV Allergies: Amoxicillin, Morphine, peanut, tomato PLAN # Epigastric pain/new onset anemia - CT angio abd/pelvis with no evidence for bleeding - Send iron studies, B12/folate, TSH - Start daily PPI - consider GI eval in AM # HTN - BP optimal - Resume home med norvasc # Schizophrenia/Bipolar disorder - mood stable, resume vistaril # DVT Prophylaxsis - Venodynes in the setting of anemia Visit type - Emergency Visit Emergency Visit: Yes ED Registration Date: 12/19/19 Care time: The patient presented to the Emergency Department on the above date and was hospitalized for further evaluation of their emergent condition. - New Patient This patient is new to me today: Yes Date on this admission: 12/19/19 - Critical Care Critical Care patient: No
[2019-12-19] MEDS ORDERED: hydrOXYzine PAMOATE 50 MG CAPSULE (FP) PO PRN (18:36)
[2019-12-19] MEDS ORDERED: ACETAMINOPHEN 325 MG TABLET (FP) PO PRN (18:39)
[2019-12-19] MEDS ORDERED: hydrOXYzine PAMOATE 25 MG CAPSULE (FP) PO ONE (23:59)
[2019-12-20] MEDS ORDERED: LORazepam 1 MG TABLET PO ONE (00:24)
[2019-12-20] MEDS ORDERED: PNEUMOC 13-VAL CONJ-DIP CRM/PF 0.5 ML DISP.SYRIN IM ONE (03:12)
[2019-12-20 07:08] LABS: HEMATOCRIT 25.6 % (35.4-49); HEMOGLOBIN 8.8 GM/dL (11.7-16.9); MCH 37.5 pg (25.7-33.7); MCHC 34.2 g/dl (32.0-35.9); MEAN CELL VOLUME 109.4 fl (80-96); MEAN PLT VOLUME 7.7 fl (7.5-11.1); PLATELET COUNT 132 K/MM3 (134-434); RBC 2.34 M/mm3 (4.00-5.60); RDW 13.8 % (11.9-15.9)
[2019-12-20 07:33] LABS: IRON SERUM 127 ug/dL (50-175); TOTAL IRON BINDING CAPACITY 143 ug/dL (250-450)
[2019-12-20 07:34] LABS: BLOOD UREA NITROGEN 21.6 mg/dL (7-18); CALCIUM 7.8 mg/dL (8.5-10.1); CREATININE 1.4 mg/dL (0.55-1.3); POTASSIUM 4.3 mmol/L (3.5-5.1)
[2019-12-20] MEDS ORDERED: LORazepam 1 MG TABLET PO PRN (08:27)
--- NOTE | 2019-12-20 08:48 | PN ---
Progress Note, Physician Chief Complaint: Seen and examined in bed. Lethargic but arousable to verbal stimuli C/o diffuse abdominal pain and nausea. States he has withdrawal symptoms after alcohol cessation. Abd has been History of Present Illness: 54 year old male with a significant past medical history htn, HCV, sc hizoaffective disorder, polysubstance abuse (? liter bourbon daily, last drink 12/16) who presents to the ED via EMS from [facility] with diffuse upper abdominal pain with radiation to the left flank Tested negative for COVID-19 on Detox admission. Also tested negative for HIV and Syphilis serology. - Current Medication List Current Medications: Active Medications Acetaminophen (Tylenol -) 650 mg PO Q4H PRN PRN Reason: FEVER Last Admin: 12/20/19 00:08 Dose: 650 mg Documented by: Amlodipine Besylate (Norvasc -) 5 mg PO DAILY [facility] Hydroxyzine Pamoate (Vistaril -) 50 mg PO Q6H PRN PRN Reason: ANXIETY Last Admin: 12/20/19 00:08 Dose: 50 mg Documented by: Lorazepam (Ativan -) 1 mg PO 0500,1100,1700,2300 [facility] Stop: 12/22/19 23:01 Lorazepam (Ativan -) 1 mg PO Q4H PRN PRN Reason: Symptoms of Withdrawal Stop: 12/22/19 23:59 Lorazepam (Ativan) 2 mg PO 0500,1100,1700,2300 [facility] Stop: 12/21/19 23:01 Lorazepam (Ativan -) 0.5 mg PO Q6H [facility] Stop: 12/23/19 23:01 Lorazepam (Ativan -) 0.5 mg PO Q4H PRN PRN Reason: Symptoms of Withdrawal Stop: 12/24/19 00:00 Lorazepam (Ativan -) 0.5 mg PO ONCE ONE Stop: 12/24/19 05:01 Pantoprazole Sodium (Protonix Iv) 40 mg IVPUSH DAILY [facility] Pneumococcal 13-Valent Conj Vacc (Prevnar 13 Syringe -) 0.5 ml IM .ONCE ONE Stop: 12/20/19 03:13 - Objective Vital Signs: Vital Signs Temperature 97.3 F L 12/20/19 05:00 Pulse Rate 77 12/20/19 05:00 Respiratory Rate 18 12/20/19 05:00 Blood Pressure 121/84 12/20/19 05:00 O2 Sat by Pulse Oximetry (%) 96 12/19/19 22:00 Constitutional: Yes: Well Nourished, No Distress, Calm Eyes: Yes: EOM Intact, Sclera Icterus HENT: Yes: WNL, Atraumatic, Normocephalic Neck: Yes: WNL, Supple, Trachea Midline Cardiovascular: Yes: WNL, Regular Rate and Rhythm Respiratory: Yes: WNL, Regular, CTA Bilaterally Gastrointestinal: Yes: Normal Bowel Sounds, Soft, Ascites, Tenderness (diffuse) ...Rectal Exam: Yes: Deferred, Guaiac Positive (FOBT positive) Genitourinary: Yes: WNL Breast(s): Yes: WNL Musculoskeletal: Yes: WNL Extremities: Yes: WNL Edema: Yes Edema: LLE: Trace, RLE: Trace Peripheral Pulses WNL: Yes Peripheral Pulses: Left Radial: 2+, Right Radial: 2+, Left Doralis Pedis: 2+, Right Dorsalis Pedis: 2+, Left Femoral: 2+, Right Femoral: 2+ Integumentary: Yes: Tattoos (multiple tattoos to UE/LE and torso) Neurological: Yes: Alert, Oriented, Lethargy ...Motor Strength: WNL Psychiatric: Yes: Alert, Oriented Labs: CBC, BMP 12/20/19 06:20 12/20/19 06:20 INR, PTT INR 1.59 (0.83-1.09) H 12/19/19 16:10 - ....Imaging Chest X-ray: Report Reviewed, Image Reviewed (no acute pathology) Cat Scan: Report Reviewed MRI: Pending ([facility]) Problem List - Problems (1) Polysubstance abuse Assessment/Plan: use of injectible drugs approx 20 years ago recent use of alcohol 1 liter bourbon daily, last drink 12/16 ativan detox protocal started appreciate consultation with Dr Chaney Urine positve for opiates and benzos can complete detox either at [facility] or if he is medically stable he can be transferred back to [facility]. Code(s): F19.10 - OTHER PSYCHOACTIVE SUBSTANCE ABUSE, UNCOMPLICATED (2) Tobacco abuse Assessment/Plan: quit 6 months ago Code(s): Z72.0 - TOBACCO USE (3) Prophylactic measure Assessment/Plan: FEN Fluids: NPO. No additional IVF given ascites. Albumin after paracentesis Electrolytes: monitor & replete as needed Nutrition: NPO and then low protein when able to eat DVT ambulation no chemical AC given liver disease Dispo Maintain as inpatient full code discharge planning to [facility] for rehab/home Code(s): Z29.9 - ENCOUNTER FOR PROPHYLACTIC MEASURES, UNSPECIFIED (4) Macrocytic anemia Assessment/Plan: hgb 8.8 most likely r/t to longstanding etoh use daily cbc and transfuse prn iron studies sent and pending plan for EGD on mon Code(s): D53.9 - NUTRITIONAL ANEMIA, UNSPECIFIED (5) Upper abdominal pain Assessment/Plan: CT with moderate ascites possible SBP paracentesis planned c/w abx until peritoneal fluid results back MRCP pending to assess biliary insolvent given high t bili maintain NPO if becomes febrile would broaden abx and place ID consultation (spoke with Dr Hernandez about potential consultation) over weekend Code(s): R10.10 - UPPER ABDOMINAL PAIN, UNSPECIFIED (6) Alcohol dependence with uncomplicated withdrawal Assessment/Plan: avoid librium guven hcv and transaminitis ativan detox protocol appreciate Dr Chaney consultation Code(s): F10.230 - ALCOHOL DEPENDENCE WITH WITHDRAWAL, UNCOMPLICATED (7) Hepatitis C Assessment/Plan: dx approx 20 years ago with no follow-up poor insight in medical condition advised for alcohol cessation and completetion of rehab after detox appreciate GI consultation repeat US in 6 months hep A/B/C studies pending Code(s): B19.20 - UNSPECIFIED VIRAL HEPATITIS C WITHOUT HEPATIC COMA Qualifiers: Viral hepatitis chronicity: chronic (8) Vomiting Assessment/Plan: resolved but remains with nausea and abd distension paracentesis and MRCP pending mainatin NPO anti-emetics prn if hemetemesis (possible esophageal varcies) -low threshold to transfer to ICU for higher level of care Code(s): R11.10 - VOMITING, UNSPECIFIED (9) INR (international normal ratio) abnormal Assessment/Plan: r/t liver disease no chemical AC c/t monitor vit k/FFP is continues to ride Code(s): R79.1 - ABNORMAL COAGULATION PROFILE (10) Transaminitis Assessment/Plan: c/t trend no hepatoxic agents received tylenol and librium Code(s): R74.0 - NONSPEC ELEV OF LEVELS OF TRANSAMNS & LACTIC ACID DEHYDRGNSE (11) COVID-19 Assessment/Plan: COVIV PCR pending low suspicion maintain airborne/droplet precuations Code(s): U07.1 - COVID POSITIVE Visit type - Emergency Visit Emergency Visit: Yes ED Registration Date: 12/19/19 Care time: The patient presented to the Emergency Department on the above date and was hospitalized for further evaluation of their emergent condition. - New Patient This patient is new to me today: Yes Date on this admission: 12/20/19 - Critical Care Critical Care patient: No - Discharge Referral Referred to [facility] Med P.C.: No CIWA Score - CIWA Score Nausea/Vomitin-Mild Nausea/No Vomiting Muscle Tremors: 2 Anxiety: 1-Mildly Anxious Agitation: 0-Normal Activity Paroxysmal Sweats: No Perspiration Orientation: 0-Oriented Tacttile Disturbances: 2-Mild Itch/Numbness/Burn Auditory Disturbances: 0-None Visual Disturbances: 0-None Headache: 1-Very Mild CIWA-Ar Total Score: 7
[2019-12-20] MEDS ORDERED: SODIUM CHLORIDE 1,000 ML IV STA (09:01)
--- NOTE | 2019-12-20 09:35 | CONSULT ---
Consult Detox [facility] Reason for Current Admission/Consult: Alcohol Dependence - History History of Present Illness: 54 year old male with a significant past medical history of substance abuse 1 liter bourbon daily, last drink 12/16, who presents to the ED via EMS from detox with diffuse upper abdominal pain with radiation to the left flank. He was admitted with a high breathalyzer. No associated nausea, vomiting, or diarrhea. No fevers or chills. Negative COVID-19 on 12/16. ED course: WBC=6.2 Hgb/Hct=9.5/28 Hgb in March=13 PT 18.8 INR=1.59 PTT 39.9 Stool Occult: positive CT AngioAbd/pelvis: no definite abnormal contrast accumulation. Hepatic cirrhosis. Interval development small to moderate amount of ascites Patient was given tylenol 1000mg IV LR 1000ml, Dilaudid 0.5mg IV - History Source History Provided By: Patient Limitations to Obtaining History: No Limitations - Alcohol/Substance Use Hx Alcohol Use: Yes - Past Medical History Cardio/Vascular: Yes: HTN Gastrointestinal: Yes: Other (Cirrhosis) Psych: Yes: Bipolar, Schizophrenia - Past Surgical History Past Surgical History: Yes: None - Significant Medical Findings: See Resident's P/E Assessment Plan - Diagnosis (1) Alcohol abuse with alcohol-induced disorder Status: Acute (2) Hematuria Status: Acute Qualifiers: Hematuria type: unspecified type Qualified Code(s): R31.9 - Hematuria, unspecified (3) Macrocytic anemia Status: Acute (4) Mesenteric varices Status: Acute (5) Polysubstance abuse Status: Acute (6) Positive occult stool blood test Status: Acute - Plan Plan: 1. Alcohol Dependence with withdrawal: Patient is well known to [facility] and has been drinking large quantities of hard liquor. Breathalyzer upon [facility] admission was very high, indicative of intoxication levels. Agree with current management with Ativan Detox protocol. Continue management and w/u for stool guiac stools. He also has HCV that has not been treated and most likely a progression of his liver disease as he has not abated his alcohol intake. He can complete detox either at [facility] or if he is medically stable he can be transferred back to [facility]. Dr. Chaney
[2019-12-20] MEDS ORDERED: PANTOPRAZOLE SODIUM 40 MG VIAL IVPUSH SCH (10:00)
[2019-12-20] MEDS ORDERED: amLODIPine BESYLATE 5 MG TABLET (FP) PO SCH (10:00)
[2019-12-20] MEDS ORDERED: ENOXAPARIN NA (PORCINE) 40 MG/0.4 ML DISP.SYRIN SQ SCH (10:00)
--- NOTE | 2019-12-20 10:09 | CON.GI ---
Consult - History of Present Illness History of Present Illness: The patient is a 54 yo male with a history of alcohol abuse since the age of 15. He was in a detox facility for the past 2 days and then sent to the hospital for evaluation of abdominal pain and hematemesis. He states that approximately 2 weeks ago he started to vomit black material, prior to this he has had nausea after eating with occasional vomiting. The vomit had never been black colored in the past. Overall, his appetite is poor and he only eats small portions at a time. Denies recent weight loss. Approximately 20 years ago he had an EGD and c olonoscopy and had one polyp removed, which was negative. 15 years ago he had a liver biopsy. He as a history of hepatitis C and gives a poor history of any treatment or follow up for his hepatitis over the years. The patient describes his abd pain as mostly upper abdomen with bloating and pain radiating to his back. - History Source History Provided By: Patient Limitations to Obtaining History: No Limitations - Past Medical History Cardio/Vascular: Yes: HTN Pulmonary: No: Asthma, Bronchitis Gastrointestinal: Yes: Constipation, Diverticulitis, Other (Cirrhosis) Hepatobiliary: Yes: Hepatitis C Renal/: Yes: Renal Calculi. 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 History of Recent Travel: No <Nicki Jordan - Last Filed: 12/20/19 14:19> Consult Specialty:: GI Referred by:: Hospitalist Service Reason for Consultation:: Anemia, abdominal pain - History of Present Illness Chief Complaint: Abdominal pain <Geraldo Schreiber - Last Filed: 12/20/19 14:52> Home Medications <Nicki Jordan - Last Filed: 12/20/19 14:19> <Geraldo Schreiber - Last Filed: 12/20/19 14:52> - Allergies Allergies/Adverse Reactions: Allergies Allergy/AdvReac Type Severity Reaction Status Date / Time amoxicillin Allergy Severe Itching Verified 12/19/19 12:45 morphine Allergy Severe Verified 12/19/19 12:45 peanut AdvReac Verified 12/19/19 12:45 tomato AdvReac Verified 12/19/19 12:45 - Home Medications Home Medications: Ambulatory Orders Amlodipine Besylate 5 mg PO DAILY 01/29/19 hydrOXYzine PAMOATE [Vistaril -] 50 mg PO QID PRN 03/18/19 Family Medical History Family Hx Cancer: Mother Family Hx Gastrointestinal Disorder: Mother, Father (unknown, didn't know his father) <Nicki Jordan - Last Filed: 12/20/19 14:19> Other Family History: No family history of colon cancer <Geraldo Schreiber - Last Filed: 12/20/19 14:52> Review of Systems - Review of Systems Constitutional: denies: Chills, Fever Cardiovascular: denies: Edema, Palpitations Respiratory: denies: Cough, SOB Gastrointestinal: reports: Abdominal Pain, Bloating, Constipation (had loose BM yesterday after taking stool softner. Stool was black in color), Vomiting Blood (dark blood) Genitourinary: reports: Burning, Hematuria Integumentary: denies: Bruising Neurological: reports: Dizziness Hematology/Lymphatic: denies: Easily Bruised, Excessive Bleeding <Nicki Jordan - Last Filed: 12/20/19 14:19> Physical Exam-GI Vital Signs: Vital Signs Temperature 97.3 F L 12/20/19 05:00 Pulse Rate 77 12/20/19 05:00 Respiratory Rate 18 12/20/19 05:00 Blood Pressure 121/84 12/20/19 05:00 O2 Sat by Pulse Oximetry (%) 96 12/19/19 22:00 Constitutional: Yes: Calm Eyes: Yes: Sclera Icterus HENT: Yes: WNL, Atraumatic, Normocephalic Cardiovascular: Yes: Regular Rate and Rhythm Respiratory: Yes: Regular, CTA Bilaterally Gastrointestinal Inspection: Yes: Distention ...Auscultate: Yes: Normoactive Bowel Sounds ...Palpate: Yes: Tenderness (to RUQ/epigastric area). No: Guarding ...Rectal Exam: Yes: Other (completed by Dr. Digirono-no gross blood with rectal exam) Genitourinary: No: CVA Tenderness - Left, CVA Tenderness - Right Edema: No Peripheral Pulses WNL: Yes Neurological: Yes: WNL, Alert, Oriented ...Motor Strength: WNL Psychiatric: Yes: WNL, Alert, Oriented Labs: CBC, BMP 12/20/19 06:20 12/20/19 06:20 INR, PTT INR 1.59 (0.83-1.09) H 12/19/19 16:10 Laboratory Tests 12/19/19 12/19/19 12/19/19 12:05 13:25 16:10 PT with INR 18.80 H INR 1.59 H PTT (Actin FS) 39.9 H Total Bilirubin 2.4 H AST 196 H ALT 55 Alkaline Phosphatase 225 H Total Protein 9.6 H Albumin 1.6 L Lipase 495 H Stool Occult Blood Positive <Nicki Jordan - Last Filed: 12/20/19 14:19> Vital Signs: Vital Signs Temperature 97.3 F L 12/20/19 05:00 Pulse Rate 77 12/20/19 05:00 Respiratory Rate 18 12/20/19 05:00 Blood Pressure 121/84 12/20/19 05:00 O2 Sat by Pulse Oximetry (%) 99 12/20/19 09:00 ...Palpate: Yes: Tenderness Labs: CBC, BMP 12/20/19 06:20 12/20/19 06:20 INR, PTT INR 1.59 (0.83-1.09) H 12/19/19 16:10 <Geraldo Schreiber - Last Filed: 12/20/19 14:52> Imaging - Results Cat Scan: Other (CTA-perisplenic and mesenteric varices/ascites. Hepatic cirrhosis) <Nicki Jordan - Last Filed: 12/20/19 14:19> Problem List - Problems (1) Cirrhosis of liver with ascites Assessment/Plan: pt with a long history of alcohol abuse who was currently in rehab receiving detox treatment. He had been taking librium while at [facility] and is now on ativan. Order placed for IR diagnostic peritoneal fluid aspiration. Pt with new finding of ascites on CT scan in comparison to previous radiology studies completed at [facility]. His LFTS have shown an increase since his last admission in 03/21, overall his alk phos and total bilirubin have increased as well as his INR. Platelets still WNL but trending downward. This could all be relevant for worsening liver function due to his cirrhosis. With his increase in LFTS an MRI has been ordered to better evaluate his liver/biliary tree for stone/disease and to r/o masses. His Meld score is 21 and at this point further testing is needed to r/o worsening cirrhotic disease/decompensation. He will have a EGD on Monday for evaluation of his hematemesis which is dark in color. Problems reviewed: Yes Code(s): K74.60 - UNSPECIFIED CIRRHOSIS OF LIVER; R18.8 - OTHER ASCITES Qualifiers: Hepatic cirrhosis type: alcoholic cirrhosis Qualified Code(s): K70.31 - Alcoholic cirrhosis of liver with ascites (2) Macrocytic anemia Assessment/Plan: Pt with macrocytic anemia as expected with his alcohol disease. Monitor CBC daily and transfuse as needed type & screen ordered repeat COVID ordered since he will have EGD on Monday and test has to be within 3 days. Test at rehab center was negative on 12/16. Code(s): D53.9 - NUTRITIONAL ANEMIA, UNSPECIFIED (3) Hepatitis C Assessment/Plan: hepatitis panel for hep B,A,C ordered Recommend npo until pt with improved nausea/abd pain and bloating IV hydration whle npo. His kidney function is slightly elevated today and could be secondary to dehydration/contrast he received with his CTA IV protonix Code(s): B19.20 - UNSPECIFIED VIRAL HEPATITIS C WITHOUT HEPATIC COMA Qualifiers: Viral hepatitis chronicity: chronic <Metzen,Nicki - Last Filed: 12/20/19 14:19> - Problems (1) Upper abdominal pain Assessment/Plan: ATTENDING PHYSICIAN STATEMENT I saw and evaluated the patient. I reviewed the PA's note and discussed the case wiht the PA. I agree with the resident's findings and plan as documented. SUBJECTIVE: 54M chronic alcohol abuse, cirrhosis MELDNa of 20 transferred from [facility] for evaluation of abdominal pain. Also with dark vomitus 2 weeks ago. Noted anemic., FOBT + from ER. CTA of the abdomen peformed in ER for unclear reason. Small-mod ascites, changes c/w cirrhosis. No portal vein thrombosis noted on exam. OBJECTIVE: Temp 99.1 rectally Icteric Hrt RRR, no murmurs appreciated Lungs: CTA B/L Abd: No scars, mildly protuberant, + normoactive bowel sounds, predominantly RUQ, however, lower abdomen bilaterally as well. No guarding / rebound. Ext: No LE edema LUDIVINA: No external lesions, no masses, no blood/melena/stool ASSESSMENT / Plan: 1. Abdominal pain: Predomiantly RUQ in location. Worsening liver function from baseline. Suspect secondary to liver deompensation from continued alcohol consumption. Given pain location, however, along with rising ALP/Bili, will obtain MRCP to exclude concominant biliary tract pathology. Added levaquin/Flagyl for now. Ordered paracentesis for diagnostic purposes / exclusion of SBP and ordered fluid to be sent for culture, Cell count w/ diff, total protein, albumin, AFB culture/Smear and cytology. Ordered Albumin 25g BID for 4 doses. Temp 99 rectally on exam today. If fever spikes, obtain ID evaluation. 2. Anemia: Likely multifactorial. Given liver disease and history of ? coffee ground vomiting 2 weeks ago, discussed upper endoscopy with possible banding to exclude varices / alternate pathology. Discussed potential risks of the procedure like but not limited to bleeding, perforation requiring surgery to repair, infection, sedation medication effects all of which could be potentially life threatening. he has agreed to the procedure. If overt bleeding / change in hemodynamics, transfer to ICU, call GI. 3. Cirrhosis: MELDNa: 20 Patient has poor insight into his medical conditions Advised need for complete alcohol cessation Should be referred to a liver transplant center as outpatient when acute issues are resolved Will need q 6 month abdominal US to screen for HCC Check Quantitative HCV PCR / genotype Check Hepatitis A/B panel Problems reviewed: Yes Code(s): R10.10 - UPPER ABDOMINAL PAIN, UNSPECIFIED <Geraldo Schreiber - Last Filed: 12/20/19 14:52>
[2019-12-20] MEDS ORDERED: CEFTRIAXONE 2 GM-D5W BAG 2 GM/50 ML BAG IVPB SCH (10:15)
[2019-12-20] MEDS ORDERED: PANTOPRAZOLE 20 MG TABLET PO SCH (10:15)
--- NOTE | 2019-12-20 10:27 | EKG ---
Test Reason : Blood Pressure : / mmHG Vent. Rate : 081 BPM Atrial Rate : 081 BPM P-R Int : 184 ms QRS Dur : 090 ms QT Int : 416 ms P-R-T Axes : 037 -22 000 degrees QTc Int : 483 ms NORMAL SINUS RHYTHM POSSIBLE LEFT ATRIAL ENLARGEMENT CANNOT RULE OUT INFERIOR INFARCT , AGE UNDETERMINED INCOMPLETE RBBB ABNORMAL ECG WHEN COMPARED WITH ECG OF 31-JAN-2019 21:54, NO SIGNIFICANT CHANGE WAS FOUND Confirmed by ARMAND ARGUETA MD ([id number]) on 12/20/2019 10:27:21 AM Referred By: Confirmed By:ARMAND ARGUETA MD
[2019-12-20] MEDS ORDERED: LORazepam 2 MG TABLET PO SCH (11:00)
[2019-12-20] MEDS: LORazepam 1 MG TABLET PO SCH ×2 (11:10→17:36)
[2019-12-20] MEDS ORDERED: SODIUM CHLORIDE 1,000 ML IV SCH (14:30)
--- NOTE | 2019-12-20 15:43 | CONSULT ---
Consult Consult Specialty:: Nephrology Reason for Consultation:: BLAINE - History of Present Illness Chief Complaint: abdominal pain History of Present Illness: Pt is a 54 year old male with pmhx of substance abuse, htn, hep c and etoh abuse who presents from detox with abd pain. He was found to have ascites. I was called to evaluate him for blaine. He did get a cta of the abdomen in er. He was noted to have hepatic cirrhosis on ct scan. He denies dysuria or hematuria. He denies fevers or chills. He denies nsaid use. He is a poor historian. - History Source History Provided By: Patient, Medical Record - Past Medical History Cardio/Vascular: Yes: HTN Gastrointestinal: Yes: Constipation, Diverticulitis, Other (Cirrhosis) Hepatobiliary: Yes: Hepatitis C Renal/: Yes: Renal Calculi. 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 History of Recent Travel: No Home Medications - Allergies Allergies/Adverse Reactions: Allergies Allergy/AdvReac Type Severity Reaction Status Date / Time amoxicillin Allergy Severe Itching Verified 12/19/19 12:45 morphine Allergy Severe Verified 12/19/19 12:45 peanut AdvReac Verified 12/19/19 12:45 tomato AdvReac Verified 12/19/19 12:45 - Home Medications Home Medications: Ambulatory Orders Amlodipine Besylate 5 mg PO DAILY 01/29/19 hydrOXYzine PAMOATE [Vistaril -] 50 mg PO QID PRN 03/18/19 Family Medical History Family History: Denies Review of Systems - Review of Systems Constitutional: reports: Malaise Eyes: reports: No Symptoms HENT: reports: No Symptoms Neck: reports: No Symptoms Cardiovascular: reports: No Symptoms Respiratory: reports: No Symptoms Gastrointestinal: reports: Abdominal Pain Genitourinary: reports: No Symptoms Musculoskeletal: reports: No Symptoms Integumentary: reports: No Symptoms Neurological: reports: No Symptoms Endocrine: reports: No Symptoms Hematology/Lymphatic: reports: No Symptoms Psychiatric: reports: No Symptoms Physical Exam Vital Signs: Vital Signs Temperature 98.9 F 12/20/19 15:09 Pulse Rate 97 H 12/20/19 15:09 Respiratory Rate 20 12/20/19 15:09 Blood Pressure 122/71 12/20/19 15:09 O2 Sat by Pulse Oximetry (%) 99 12/20/19 09:00 Constitutional: Yes: Calm Eyes: Yes: Conjunctiva Clear HENT: Yes: Atraumatic Neck: Yes: Supple Cardiovascular: Yes: S1, S2 Respiratory: Yes: CTA Bilaterally Gastrointestinal: Yes: Normal Bowel Sounds, Soft, Ascites, Distention Renal/: Yes: WNL Musculoskeletal: Yes: WNL Edema: No Integumentary: Yes: Tattoos Neurological: Yes: Oriented Psychiatric: Yes: Oriented Labs: CBC, BMP 12/20/19 06:20 12/20/19 06:20 Laboratory Tests 12/19/19 12/19/19 12/19/19 12:05 13:25 14:35 Sodium Creatinine 1.1 Urine Protein 1+ H Urine Blood 3+ H Stool Occult Blood Positive COVID-19 (CADEN) 12/20/19 12/20/19 06:20 12:40 Sodium 134 L Creatinine 1.4 H Urine Protein Urine Blood Stool Occult Blood COVID-19 (CADEN) Pending Imaging - Results Cat Scan: Report Reviewed Problem List - Problems (1) Alcohol abuse with alcohol-induced disorder Code(s): F10.19 - ALCOHOL ABUSE WITH UNSPECIFIED ALCOHOL-INDUCED DISORDER (2) Cirrhosis of liver with ascites Code(s): K74.60 - UNSPECIFIED CIRRHOSIS OF LIVER; R18.8 - OTHER ASCITES Qualifiers: Hepatic cirrhosis type: alcoholic cirrhosis Qualified Code(s): K70.31 - Alcoholic cirrhosis of liver with ascites (3) Polysubstance abuse Code(s): F19.10 - OTHER PSYCHOACTIVE SUBSTANCE ABUSE, UNCOMPLICATED Assessment/Plan Current Medications Generic Name Dose Route Start Last Admin Trade Name Freq PRN Reason Stop Dose Admin Albumin Human 25 gm 12/20/19 22:00 Albumin Human 25% - IVPB 12/22/19 10:01 BID FAISAL Amlodipine Besylate 5 mg 12/20/19 10:00 12/20/19 09:08 Norvasc - PO 5 mg DAILY FAISAL Administration Levofloxacin 500 mg in 100 mls @ 100 mls/hr 12/20/19 12:30 12/20/19 13:25 Levaquin 500 Mg Premixed Ivpb - IVPB 100 mls/hr DAILY FAISAL Administration Protocol Sodium Chloride 1,000 mls @ 100 mls/hr 12/20/19 14:30 12/20/19 14:57 Normal Saline - IV Not Given ASDIR FAISAL Lorazepam 1 mg 12/22/19 05:00 Ativan - PO 12/22/19 23:01 0500,1100,1700,2300 FAISAL Lorazepam 1 mg 12/20/19 08:27 Ativan - PO 12/22/19 23:59 Q4H PRN Symptoms of Withdrawal Lorazepam 0.5 mg 12/23/19 05:00 Ativan - PO 12/23/19 23:01 Q6H FAISAL Lorazepam 0.5 mg 12/23/19 00:00 Ativan - PO 12/24/19 00:00 Q4H PRN Symptoms of Withdrawal Lorazepam 0.5 mg 12/24/19 05:00 Ativan - PO 12/24/19 05:01 ONCE ONE Lorazepam 2 mg 12/20/19 11:00 12/20/19 11:10 Ativan - PO 12/21/19 23:01 2 mg 0500,1100,1700,2300 FAISAL Administration Pantoprazole Sodium 40 mg 12/20/19 10:00 12/20/19 09:08 Protonix Iv IVPUSH 40 mg DAILY FAISAL Administration Pneumococcal 13-Valent Conj Vacc 0.5 ml 12/20/19 03:12 Prevnar 13 Syringe - IM 12/20/19 03:13 .ONCE ONE Impression 1. BLAINE 2. substance abuse 3. liver cirhosis 4. ascites 5. htn 6. hx hep c Plan - check urine lytes and mixer slagman - pt did get cta, cont to monitor mixer slagman - repeat ua - follow analysis after paracentesis - GI follow up - hold off fluids - agree with albumin with paracentesis
[2019-12-20] MEDS ORDERED: MORPHINE SULFATE 2 MG/ML VIAL IVPUSH ONE (16:51)
[2019-12-20 18:23] LABS: EPI CELLS 5 /uL (0-25.1); HYALINE CASTS 2 /uL (0-3.1); PH,URINE 6.5 (5.0-8.0); URINE APPEARANCE CLEAR; URINE BACTERIA 9 /uL (0-1359); URINE BILIRUBIN 1+ (NEGATIVE); URINE COLOR DK YELLOW; URINE GLUCOSE (UA) NEGATIVE (NEGATIVE); URINE KETONE NEGATIVE (NEGATIVE); URINE LEUK ESTERASE NEGATIVE (NEGATIVE); URINE NITRITE NEGATIVE (NEGATIVE); URINE PROTEIN TRACE (NEGATIVE); URINE RBC 978 /uL (0-23.9); URINE UROBILINOGEN 4.0 E.U/dl mg/dL (0.2-1.0); URINE WBC 24 /uL (0-25.8)
[2019-12-20 18:27] LABS: COCAINE, UR NEGATIVE ng/ml (CUTOFF=300); METHADONE, UR NEGATIVE ng/ml (CUTOFF=300); PHENCYCLIDINE,URINE NEGATIVE ng/ml (CUTOFF=25)
[2019-12-20 18:42] LABS: URINE AMPHETAMINES NEGATIVE ng/ml (CUTOFF=500); URINE BARBITURATES NEGATIVE ng/ml (CUTOFF=200)
[2019-12-20 18:45] LABS: OPIATES, URI POSITIVE ng/ml (CUTOFF=300); URINE BENZODIAZEPINES POSITIVE ng/ml (CUTOFF=200)
[2019-12-20 19:14] LABS: BF WBC & OTHER NUCLEATED CELLS 384 /mm3
[2019-12-20 20:31] LABS: BODY FLUID MACROPHAGES 17 %; BODY FLUID MESOTHELIAL 2 %; BODY FLUID MONOCYTE 30 %
[2019-12-20] MEDS ORDERED: ALBUMIN HUMAN 25% 100 ML VIAL IVPB SCH (22:00)
[2019-12-21] MEDS: LORazepam 1 MG TABLET PO SCH ×2 (00:23→06:06)
[2019-12-21 00:37] VITALS: TEMP 98.2
[2019-12-21 02:45] VITALS: BP 100/58; PULSE 85
[2019-12-22] MEDS ORDERED: LORazepam 1 MG TABLET PO SCH (05:00)
[2019-12-23] MEDS ORDERED: LORazepam 0.5 MG TABLET PO PRN
[2019-12-23] MEDS ORDERED: LORazepam 0.5 MG TABLET PO SCH (05:00)
[2019-12-24] MEDS ORDERED: LORazepam 0.5 MG TABLET PO ONE (05:00)
--- NOTE | 2019-12-24 16:08 | PATH ---
Cytology Non-Gynecological Report Patient Name: SULEMAN MELVIN Med. Rec. #: [id number] /Age/Gender: 1965 (Age: 54) / M Account: [id number] Location: [facility] MED/SURG Taken: 12/23/2019 Received: 12/23/2019 Reported: 12/24/2019 Physicians: Katherine Perry Specimen(s) Received PERITONEAL FLUID Clinical History Ascites Final Diagnosis PERITONEAL FLUID, PARACENTESIS: SATISFACTORY FOR EVALUATION. NEGATIVE FOR MALIGNANCY. FEW MESOTHELIAL CELLS AND RARE LYMPHOCYTES PRESENT. Electronically Signed Angie Marte M.D. Gross Description Approximately 55 cc of cloudy yellow fluid received fixed in 50% alcohol. One cytofunnel prepared and Pap stained. One cellblock prepared.
[2020-01-16 15:07] LABS: BODY FLUID ALBUMIN 0.4 g/dL (Not Estab.)
== END 2019-12-21 07:43 | disposition left against medical advice (07) | DRG 280 ==
LOC: JER 12:29 → JERBED 17:44 → J7W 22:50
PROVIDERS: ADMIT Internal Medicine; ATTEND Internal Medicine
DX: K70.31 Alcoholic cirrhosis of liver with ascites (principal); N17.9 Acute kidney failure, unspecified; K92.0 Hematemesis; F25.9 Schizoaffective disorder, unspecified; D53.9 Nutritional anemia, unspecified; R74.0 Nonspecific elevation of levels of transaminase and lactic acid dehydrogenase [LDH]; F10.20 Alcohol dependence, uncomplicated; I10 Essential (primary) hypertension; F14.10 Cocaine abuse, uncomplicated; F11.10 Opioid abuse, uncomplicated; B19.20 Unspecified viral hepatitis C without hepatic coma; R79.1 Abnormal coagulation profile; R31.9 Hematuria, unspecified; F10.230 Alcohol dependence with withdrawal, uncomplicated; Z87.891 Personal history of nicotine dependence
CPT/HCPCS: 36415; 71046-TC-FY; 74174-TC; 74181-TC; 76942-TC; 80048; 80053; 80307; 81003; 82042; 82150; 82272; 82436; 82465; 82565; 82607; 82728; 82746; 82945; 83540; 83550; 83615; 83690; 83735; 83935; 83986; 84100; 84133; 84157; 84300; 84443; 84478; 85025; 85027; 85610; 85730; 87070; 87075; 87086; 87102; 87116; 87205; 87206; 87210; 88108; 88305-TC; 93005; 93010; 99285-25; J0131; Q9967; U0003

== ENCOUNTER 2022-05-19 19:08 | Emergency (ER) | payer OTHER ==
[2022-05-19 20:01] VITALS: BMI 28.0
[2022-05-20 03:11] VITALS: BP 121/59; PULSE 85; RESP 19; TEMP 98.4
== END 2022-05-20 05:47 ==
LOC: JER 19:08
DX: F11.929 Opioid use, unspecified with intoxication, unspecified (principal)
CPT/HCPCS: 70450-TC; 72125-TC; 82962; 99284-25